=== PATIENT | female | born 1930 | race Caucasian/White ===

== ENCOUNTER 2016-07-22 19:37 | Inpatient (IN) | payer OTHER ==
[~2016-07-22] VITALS: Ht 165.1 cm; Wt 51.7 kg
[~2016-07-22 19:37] MED LIST: NEURONTIN300 M1 PO; ULTRACET TABLE1 EACH PO
--- NOTE | 2016-07-22 20:15 | ED GI/GU/ABDOMINAL COMPLAINT ---
History of Present Illness General Chief Complaint: Abdominal Pain/Flank Pain Stated Complaint: ABD. PAIN X 2DAYS, VOMITING,15LB WEIGHT LOSS X1MTH Source: patient, family, old records Exam Limitations: no limitations Vital Signs & Intake/Output Vital Signs & Intake/Output Vital Signs Date Time Temp Pulse Resp B/P Pulse O2 O2 Flow FiO2 Ox Delivery Rate 07/226 96.5 86 16 136/63 93 Room Air 07/22 2136 98.0 83 16 172/88 96 Room Air 07/22 2033 96 Room Air 07/22 2008 96.5 100 18 156/72 99 Room Air Allergies Coded Allergies: heparin (Intermediate, LEAKED INTO TISSUE AND CAUSED EXTREME PAIN 07/22/16) Per antibiotic order sheet. -- Ruben 12/03/12 clarithromycin (UNKNOWN PER PT DAUGHTER BELIEVES IT WAS EMYCIN - GI UPSET ) erythromycin base (GI UPSET 07/22/16) gabapentin (DIZZY GI UPSET 07/22/16) tramadol (DIZZY, GI UPSET 07/22/16) Reconcile Medications Acetaminophen (Pharbetol) 325 MG TABLET 1-2 TAB PO PRN PAIN (Reported) Acetaminophen With Codeine (Acetaminophen-Cod #3 Tablet) 300 MG-30 MG TABLET 0.5-1 TAB PO BID PRN PAIN (Reported) Apixaban (Eliquis) 2.5 MG TABLET 1 TAB PO BID BLOOD THINNER (Reported) Calcium Carb/Vitamin D3/Vit K1 (Calcium + D Soft Chewable Tab) (Unknown Strength ) TAB.CHEW (Unknown Dose) PO DAILY SUPPLEMENT (Reported) Carvedilol 25 MG TABLET 0.5 TAB PO BID HEART (Reported) Furosemide 20 MG TABLET 1 TAB PO QAM DIURETIC (Reported) Levothyroxine Sodium (Synthroid) 75 MCG TABLET 1 TAB PO EOD THYROID (Reported ) Levothyroxine Sodium (Levoxyl) 75 MCG TABLET 0.5 TAB PO EOD THYROID (Reported ) Lisinopril 2.5 MG TABLET 1 TAB PO DAILY BP (Reported) Magnesium Oxide (Magnesium) 400 MG CAPSULE 1 CAP PO DAILY SUPPLEMENT ( Reported) Rosuvastatin Calcium (Crestor) 20 MG TABLET 1 TAB PO QPM CHOLESTEROL ( Reported) Simethicone (Gas Relief) (Unknown Strength) TAB.CHEW (Unknown Dose) PO PRN GAS (Reported) Triage Nurses Notes Reviewed? yes ? N Is pt currently ? No HPI: Patient presents with a sharp and crampy periumbilical pain that started yesterday and has steadily increased to the point that she can no longer take the pain. The pain starts periumbilically and radiates out to both sides. There is no radiation into her back. Patient states that she has had intermittent pain like this in the past and has been taking omeprazole for it. This pain is worse than it normally is. Patient denies any chest pain. There is no nausea or vomiting. There are no aggravating or mitigating factors. Patient took codeine without relief. Patient denies any shortness of breath. The pain is currently 10 out of 10. Patient states that she has also lost approximately 15 pounds over the past few months unintentionally. Past History Travel History Traveled to [place] past 21 day No Medical History Any Pertinent Medical History? see below for history Cardiovascular: AFIB, hypertension Gastrointestinal: GERD Endocrine: hypothyroidism History of CDIFF: No Tetanus Vaccine: 06/05/15 Surgical History Surgical History: left hip surgery Psychosocial History Who do you live with Patient/Self What is your primary language Hungarian Tobacco Use: Quit >30 days ago ETOH Use: denies use Illicit Drug Use: denies illicit drug use Family History Hx Contributory? No Review of Systems Review of Systems Constitutional: Reports: no symptoms. EENTM: Reports: no symptoms. Respiratory: Reports: no symptoms. Cardiovascular: Reports: no symptoms. GI: Reports: see HPI, abdominal pain. Genitourinary: Reports: no symptoms. Musculoskeletal: Reports: no symptoms. Skin: Reports: no symptoms. Neurological/Psychological: Reports: no symptoms. Hematologic/Endocrine: Reports: no symptoms. Immunologic/Allergic: Reports: no symptoms. All Other Systems: Reviewed and Negative Physical Exam Physical Exam General Appearance: well developed/nourished, alert, awake, anxious, severe distress Head: atraumatic Eyes: Bilateral: PERRL, EOMI. Ears, Nose, Throat, Mouth: hearing grossly normal, DRY MUCOSA Neck: normal inspection, supple, full range of motion Respiratory: normal breath sounds, chest non-tender, no respiratory distress, lungs clear Cardiovascular: normal peripheral pulses, irregularly irregular Gastrointestinal: normal bowel sounds, soft, no organomegaly, tenderness Back: normal inspection, normal range of motion Extremities: normal range of motion Neurologic/Psych: no motor/sensory deficits, awake, alert, oriented x 3, normal mood/affect Skin: intact, normal color, warm/dry Core Measures ACS in differential dx? No Severe Sepsis Present: No Septic Shock Present: No Progress Differential Diagnosis: AAA, AMI, appendicitis, biliary colic, colon cancer, cholecystitis, diverticulitis, gastritis, hepatitis, ischemic bowel, inflamm bowel dis, pancreatitis, SBO, UTI/pyelo Plan of Care: Orders Procedure Date/time Status TROPONIN LEVEL 07/23 0300 Active EKG 07/23 0300 Active TROPONIN LEVEL 07/22 2321 Active EKG 07/22 2321 Active Patient Data 07/22 2312 Active Admit to inpatient 07/22 2307 Active LACTIC ACID 07/22 2301 Active Telemetry/Compensation Expert 07/22 2000 Active URINALYSIS 07/22 2000 Active TROPONIN LEVEL 07/22 2000 Complete LIPASE 07/22 2000 Complete LACTIC ACID 07/22 2000 Complete COMPREHENSIVE METABOLIC PANEL 07/22 2000 Complete CBC WITHOUT DIFFERENTIAL 07/22 2000 Complete AMYLASE 07/22 2000 Complete EKG 07/22 1940 Active Current Medications Sig/Amber Start time Last Medication Dose Stop Time Status Admin Atorvastatin Calcium 20 MG DAILY 07/23 1000 UNVr (Lipitor) Furosemide 20 MG QAM 07/23 1000 UNVr (Lasix) Lisinopril 2.5 MG DAILY 07/23 1000 UNVr (Prinivil) Magnesium Oxide 400 MG DAILY 07/23 1000 UNVr (Mag-Ox) Levothyroxine Sodium 0.0375 MG .[EOD] 07/22 2344 UNVr (Synthroid) Levothyroxine Sodium 0.075 MG .[EOD] 07/22 2344 UNVr (Synthroid) Simethicone 80 MG Q4P PRN 07/22 2344 UNVr (Mylicon) Apixaban 2.5 MG BID 07/22 2343 UNVr (Eliquis) Carvedilol 12.5 MG BID 07/22 2343 UNVr (Coreg) Laboratory Tests 07/22/16 2340: Troponin I Pending 07/22/162339: Lactic Acid Pending 07/22/162023: Anion Gap 11, Estimated GFR 53 L, BUN/Creatinine Ratio 24.0, Glucose 139 H, Lactic Acid 2.0, Calcium 10.1, Total Bilirubin 0.9, AST 27, ALT 27, Alkaline Phosphatase 69, Troponin I 0.14 *H, Total Protein 7.6, Albumin 4.3, Globulin 3.3 , Albumin/Globulin Ratio 1.3, Amylase 40, Lipase 42, CBC w Diff NO MAN DIFF REQ, RBC 4.72, MCV 88.3, MCH 29.8, RDW 13.9, MPV 8.7, Gran % 77.1 H, Lymphocytes % 15.3 L, Monocytes % 7.1, Eosinophils % 0.2, Basophils % 0.3, Absolute Granulocytes 6.9 H, Absolute Lymphocytes 1.4, Absolute Monocytes 0.6, Absolute Eosinophils 0, Absolute Basophils 0, PUBS MCHC 33.8 Diagnostic Imaging: Viewed by Me: CT Scan. Discussed w/RAD: CT Scan. Radiology Impression: PATIENT: BRIGHT GROSS PRESENT AGE: 86 PATIENT ACCOUNT NO: [id number] : 32 LOCATION: [facility] ORDERING PHYSICIAN: CECI SALCIDO MD SERVICE DATE: 07/22/16 EXAM TYPE: CAT - CT ABD & PELVIS W IV CONTRAST EXAMINATION: CT ABDOMEN AND PELVIS WITH CONTRAST CLINICAL INFORMATION: Diffuse pain. 15 pound weight loss COMPARISON: None TECHNIQUE: Multidetector volumetric imaging was performed of the abdomen and pelvis before and after the IV administration of 95 mL of Optiray 320 intravenous contrast. Sagittal and coronal reformatted images were obtained on the technologist's workstation. DLP: 277.52 mGy-cm FINDINGS: LUNG BASES: Large hiatal hernia. 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 LIVER, GALLBLADDER, AND BILIARY TREE: The liver is normal in size, shape, and attenuation. No focal hepatic lesion or biliary ductal dilatation is present. The gallbladder is unremarkable with no evidence of radiopaque gallstones, gallbladder wall thickening, or obvious pericholecystic inflammatory changes. Extra hepatic CBD measures 5 mm. PANCREAS: Pancreas is atrophic. Pancreatic duct is slightly dilated measuring about 3 mm at the pancreatic body. No inflammation of the pancreas. No pancreatic mass. SPLEEN: Unremarkable. ADRENAL GLANDS: Unremarkable. KIDNEYS AND URETERS: The kidneys are normal in size, shape, and attenuation. No hydronephrosis, hydroureter, or calculi seen. No perinephric stranding. BLADDER: Unremarkable. GASTROINTESTINAL TRACT: There is dilatation of the proximal mid small bowel loops. The distal small bowel loops are decompressed. Pattern of a small bowel obstruction. The obstruction is due to a left-sided obturator hernia, sagittal image 49. No inflammation of the bowel wall. No bowel wall thickening. Large bowel is decompressed. Mild diverticulosis of left colon without diverticulitis. Large hiatal hernia. MESENTERY: Small amount of free fluid in the pelvis. No free air. ABDOMINAL WALL: No significant hernia is appreciated. LYMPH NODES: Normal. 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 Atherosclerotic vascular wall calcifications of aorta and iliac vessels and splenic artery. No aneurysm. Calcification at the origin of the celiac axis and SMA PELVIC VISCERA: Unremarkable. 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 There is compression superior endplate of about 50% loss of height of L1, T12 and T11. Gamma nail in the left hip old healed fracture of the right superior pubic ramus and symphysis pubis. IMPRESSION: Left -sided obturator hernia causing small bowel obstruction.. DICTATED BY: GEORGE CUI MD DATE/TIME DICTATED:07/22/162132 [employer] OPERATOR:ARSALAN DATE/TIME TRANSCRIBED:07/22/162132 CONFIDENTIAL, DO NOT COPY WITHOUT APPROPRIATE AUTHORIZATION. <Electronically signed in Other Vendor System> SIGNED BY: GEORGE CUI MD 07/22/162151 Initial ED EKG: AFIB, ST depression Prior EKG: changed Rhythm Strip: atrial fibrillation Comments: Case was discussed with Dr. Cuellar. Patient and daughter have been updated on lab results. Questions have been answered. CAT scan is pending. Departure Departure Disposition: STILL A PATIENT Condition: Guarded Clinical Impression Primary Impression: Elevated troponin Secondary Impressions: Lower abdominal pain, unspecified Referrals: TREVER JOHNSON MD (PCP) Departure Forms: Customer Survey General Discharge Information Admission Note Spoke With: TREVER JOHNSON MD Documentation of Exam: Documentation of any treatments & extenuating circumstances including Concerns Regarding Discharge (functional status, medication knowledge or non-compliance, living conditions, etc.) that warrant an admission rather than observation: [ Nothing by mouth, IV fluids, serial enzymes, cardiology consultation, surgical evaluation]
[2016-07-22 20:33] LABS: ABSOLUTE BASOPHIL COUNT 0 /CUMM (0.0-0.2); ABSOLUTE EOSINOPHIL COUNT 0 /CUMM (0.0-0.7); ABSOLUTE GRANULOCYTE CT 6.9 /CUMM (1.4-6.5); ABSOLUTE LYMPH COUNT 1.4 /CUMM (1.2-3.4); ABSOLUTE MONOCYTE COUNT 0.6 /CUMM (0.10-0.60); BASOPHIL % 0.3 % (0.0-2.0); EOSINOPHIL % 0.2 % (0-5); GRANULOCYTE % 77.1 % (42.2-75.2); HEMATOCRIT 41.7 % (37-47); MEAN CORPUSCULAR HGB 29.8 PG (27.0-31.0); MEAN CORPUSCULAR HGB CONC 33.8 G/DL (33.0-37.0); MEAN CORPUSCULAR VOLUME 88.3 FL (81.0-99.0); MEAN PLATELET VOLUME 8.7 FL (7.4-10.4); PLATELET COUNT 211 /CUMM (130-400); RBC DISTRIBUTION WIDTH 13.9 % (11.5-14.5); RED BLOOD CELL CT 4.72 /CUMM (4.20-5.40)
[2016-07-22] MEDS ORDERED: CRESTOR20 M2 PO (20:38)
[2016-07-22] MEDS ORDERED: CARVEDILOL25 M1 PO (20:38)
[2016-07-22] MEDS ORDERED: FUROSEMIDE20 M1 PO (20:39)
[2016-07-22] MEDS ORDERED: ACETAMINOPHEN-1 EAC3 PO (20:39)
[2016-07-22] MEDS ORDERED: ELIQUIS2.5 M1 PO (20:39)
[2016-07-22] MEDS ORDERED: SYNTHROID75 MCG PO (20:41)
[2016-07-22] MEDS ORDERED: LEVOXYL75 MCG PO (20:42)
[2016-07-22] MEDS ORDERED: LISINOPRIL2.5 M1 PO (20:42)
[2016-07-22] MEDS ORDERED: MAGNESIUM400 M1 PO (20:43)
[2016-07-22] MEDS ORDERED: PHARBETOL325 MG PO (20:43)
[2016-07-22] MEDS ORDERED: CALCIUM + D SO1 EACH PO (20:44)
[2016-07-22] MEDS ORDERED: GAS RELIEF80 M1 PO (20:44)
--- NOTE | 2016-07-22 21:52 | CT SCAN REPORT ---
EXAMINATION: CT ABDOMEN AND PELVIS WITH CONTRAST CLINICAL INFORMATION: Diffuse pain. 15 pound weight loss COMPARISON: None TECHNIQUE: Multidetector volumetric imaging was performed of the abdomen and pelvis before and after the IV administration of 95 mL of Optiray 320 intravenous contrast. Sagittal and coronal reformatted images were obtained on the technologist's workstation. DLP: 277.52 mGy-cm FINDINGS: LUNG BASES: Large hiatal hernia. 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 LIVER, GALLBLADDER, AND BILIARY TREE: The liver is normal in size, shape, and attenuation. No focal hepatic lesion or biliary ductal dilatation is present. The gallbladder is unremarkable with no evidence of radiopaque gallstones, gallbladder wall thickening, or obvious pericholecystic inflammatory changes. Extra hepatic CBD measures 5 mm. PANCREAS: Pancreas is atrophic. Pancreatic duct is slightly dilated measuring about 3 mm at the pancreatic body. No inflammation of the pancreas. No pancreatic mass. SPLEEN: Unremarkable. ADRENAL GLANDS: Unremarkable. KIDNEYS AND URETERS: The kidneys are normal in size, shape, and attenuation. No hydronephrosis, hydroureter, or calculi seen. No perinephric stranding. BLADDER: Unremarkable. GASTROINTESTINAL TRACT: There is dilatation of the proximal mid small bowel loops. The distal small bowel loops are decompressed. Pattern of a small bowel obstruction. The obstruction is due to a left-sided obturator hernia, sagittal image 49. No inflammation of the bowel wall. No bowel wall thickening. Large bowel is decompressed. Mild diverticulosis of left colon without diverticulitis. Large hiatal hernia. MESENTERY: Small amount of free fluid in the pelvis. No free air. ABDOMINAL WALL: No significant hernia is appreciated. LYMPH NODES: Normal. 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 Atherosclerotic vascular wall calcifications of aorta and iliac vessels and splenic artery. No aneurysm. Calcification at the origin of the celiac axis and SMA PELVIC VISCERA: Unremarkable. 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 There is compression superior endplate of about 50% loss of height of L1, T12 and T11. Gamma nail in the left hip old healed fracture of the right superior pubic ramus and symphysis pubis. IMPRESSION: Left-sided obturator hernia causing small bowel obstruction..
--- NOTE | 2016-07-22 23:22 | History & Physical ---
ZEUS DONIS,[facility] 07/22/16 5758: General Information and HPI MD Statement: I have seen and personally examined BRIGHT LLANES and documented this H&P. The patient is a 86 year old F who presented with a patient stated chief complaint of abdominal pain. Source of Information: patient, family, old records Exam Limitations: no limitations History of Present Illness: Ms Llanes is an 86-year-old lady with past medical history of atrial fibrillation and history of multiple previous falls who presented to the emergency department on 07/22/2016 complaining of abdominal pain. Patient states that her abdominal pain was rated 10 out of 10 in severity. Pain began approximately 24 hours ago while she was at home. She states nothing made the pain better or worse. The pain initially was periumbilical and centrally located, it then diffused and radiated across the lower abdominal wall. The patient reports that in addition to the pain she also felt nauseous and had multiple episodes of dry heaving. Patient has reported decrease appetite over the last 24 hours she has been unable to tolerate by mouth intake. Patient also endorses that she has recently lost over 15 pounds unintentionally. She denies any night sweats or lymphadenopathy. She last saw her primary care physician Dr. Johnson last week. She last saw film technician Dr. Husain month ago. Patient denies any fever, chills. She denies any chest pain, shortness of breath, orthopnea, palpitations. Allergies/Medications Allergies: Coded Allergies: heparin (Intermediate, LEAKED INTO TISSUE AND CAUSED EXTREME PAIN 07/22/16) Per antibiotic order sheet. -- Ruben 12/03/12 clarithromycin (UNKNOWN PER PT DAUGHTER BELIEVES IT WAS EMYCIN - GI UPSET ) erythromycin base (GI UPSET 07/22/16) gabapentin (DIZZY GI UPSET 07/22/16) tramadol (DIZZY, GI UPSET 07/22/16) Home Med list Acetaminophen (Pharbetol) 325 MG TABLET 1-2 TAB PO PRN PAIN (Reported) Acetaminophen With Codeine (Acetaminophen-Cod #3 Tablet) 300 MG-30 MG TABLET 0.5-1 TAB PO BID PRN PAIN (Reported) Apixaban (Eliquis) 2.5 MG TABLET 1 TAB PO BID BLOOD THINNER (Reported) Calcium Carb/Vitamin D3/Vit K1 (Calcium + D Soft Chewable Tab) (Unknown Strength ) TAB.CHEW (Unknown Dose) PO DAILY SUPPLEMENT (Reported) Carvedilol 25 MG TABLET 0.5 TAB PO BID HEART (Reported) Furosemide 20 MG TABLET 1 TAB PO QAM DIURETIC (Reported) Levothyroxine Sodium (Levoxyl) 75 MCG TABLET 0.5 TAB PO EOD THYROID (Reported ) Lisinopril 2.5 MG TABLET 1 TAB PO DAILY BP (Reported) Magnesium Oxide (Magnesium) 400 MG CAPSULE 1 CAP PO DAILY SUPPLEMENT ( Reported) Rosuvastatin Calcium (Crestor) 20 MG TABLET 1 TAB PO QPM CHOLESTEROL ( Reported) Simethicone (Gas Relief) (Unknown Strength) TAB.CHEW (Unknown Dose) PO PRN GAS (Reported) Compliance With Home Meds: GOOD Past History Travel History Traveled to [place] past 21 day No Medical History Neurological: NONE EENT: NONE Cardiovascular: AFIB, hypertension, RCW PACEMAKER Respiratory: NONE Gastrointestinal: GERD Hepatic: NONE Renal: NONE Musculoskeletal: NONE Psychiatric: NONE Endocrine: hypothyroidism Blood Disorders: NONE Cancer(s): NONE History of CDIFF: No Tetanus Vaccine: 06/05/15 Surgical History Surgical History: left hip surgery Past Family/Social History Psychosocial History Where do you live? Home Who Do You Live With? child Services at Home: None Primary Language: Syrian ETOH Use: denies use Illicit Drug Use: denies illicit drug use Functional Ability ADLs Independent: dressing, eating, toileting, bathing. Ambulation: cane IADLs Independent: shopping, housework, finances, food prep, telephone, transportation , medication admin. Review of Systems Review of Systems Constitutional: Denies: chills, diaphoresis, fever, malaise. EENTM: Denies: blurred vision, double vision, visual changes. Cardiovascular: Denies: chest pain, edema, orthopena, palpitations, peripheral edema. Respiratory: Denies: cough, hemoptysis, orthopnea, short of breath. GI: Reports: abdominal pain, nausea, vomiting. Denies: distention, bowel incontinence. Genitourinary: Denies: discharge, dysuria, frequency, hematuria. Musculoskeletal: Denies: back pain, gout, joint pain, joint swelling. Exam & Diagnostic Data Last 24 Hrs of Vital Signs/I&O Vital Signs Date Time Temp Pulse Resp B/P Pulse O2 O2 Flow FiO2 Ox Delivery Rate 07/22 2325 96.5 86 16 136/63 93 Room Air 07/22 2136 98.0 83 16 172/88 96 Room Air 07/22 2033 96 Room Air 07/22 2008 96.5 100 18 156/72 99 Room Air Physical Exam General Appearance Alert, Oriented X3, Cooperative, No Acute Distress HEENT PERRLA, Mucous membranes Dry Lymphatic Cervical nl Cardiovascular Normal S1, Normal S2, Irregular rate and Rhythm Lungs Clear to Auscultation Abdomen Normal Bowel Sounds, Soft, No Tenderness Neurological Strength at 5/5 X4 Ext Extremities Generalized edema Last 24 Hrs of Labs/Pavan: Laboratory Tests 07/22/16 2340: Troponin I Pending 07/22/162339: Lactic Acid 1.2 07/22/162023: Anion Gap 11, Estimated GFR 53 L, BUN/Creatinine Ratio 24.0, Glucose 139 H, Lactic Acid 2.0, Calcium 10.1, Total Bilirubin 0.9, AST 27, ALT 27, Alkaline Phosphatase 69, Troponin I 0.14 *H, Total Protein 7.6, Albumin 4.3, Globulin 3.3 , Albumin/Globulin Ratio 1.3, Amylase 40, Lipase 42, CBC w Diff NO MAN DIFF REQ, RBC 4.72, MCV 88.3, MCH 29.8, RDW 13.9, MPV 8.7, Gran % 77.1 H, Lymphocytes % 15.3 L, Monocytes % 7.1, Eosinophils % 0.2, Basophils % 0.3, Absolute Granulocytes 6.9 H, Absolute Lymphocytes 1.4, Absolute Monocytes 0.6, Absolute Eosinophils 0, Absolute Basophils 0, PUBS MCHC 33.8 Diagnostic Data EKG Results Rate 101 QTC 535 A. Fibrilation. Other Results IMPRESSION: Left-sided obturator hernia causing small bowel obstruction.. Assessment/Plan Assessment: This is a 86-year-old lady who presented to the emergency department worsening abdominal pain following a resolution to symptoms she subsequently had an elevations in troponins. Likely due to demand ischemia. #Positive Troponins: 0.14 Elevation in troponin is likely due to demand ischemia. We'll continue to monitor trend serial troponins EKG to ensure can rule out ACS in the patient. Trending troponin: First troponin 0.14 second troponin is 0.16 Continue carvedilol #Abdominal pain CT scan showed evidence of left-sided hernia causing small bowel obstruction. Surgery service who saw the patient recommends no emergent intervention. We will hold Eliquis for now in anticipation for potential surgery in am. Patient is clear from surgery perspective please begin Eliquis in a.m. Keep patient nothing by mouth for now until further recommendations from surgery regarding questionable procedure. #History of CHF and [place] Cardiomyopathy most recent EF 45-50%. Continue Lasix. Monitor ins and outs and daily weights. #History of hyperlipidemia Continue atorvastatin 40 mg po daily #History of hypertension Continue antihypertensives lisinopril 2.5 mg Lasix 20 mg and carvedilol 12.5 mg. #History of hypothyroidism Continue levothyroxine 0.0375 every 48. #Code: Full As Ranked By This Provider Problem List: 1. Atrial fibrillation 2. Elevated troponin 3. HYHPERTENSION 4. Hypothyroidism 5. Congestive heart failure 6. Abdominal pain Core Measures/Miscellaneous Acute Coronary Syndrome ACS Diagnosis: No Cerebrovascular Accident CVA/TIA Diagnosis: No Congestive Heart Failure CHF Diagnosis: No Venous Thromboembolism VTE Risk Factors: Age > 40 VTE Prophylaxis Ordered Inpt: Pharm- Lovenox No Mech VTE prophylaxis d/t: No contraindications No VTE Pharm Prophylaxis d/t: No contraindications VTE Diagnosis: No VTE Type: NONE VTE Confirmed by (Test): NONE Severe Sepsis Severe Sepsis Present: No Septic Shock Septic Shock Present: No Miscellaneous Documentation Attending Case Discussed With: Dr Johnson Primary Care Physician: TREVER JOHNSON MD Patient sees these Specialists Dr Husain Level of Patient Care: Telemetry ESTELITA ESPINO 07/22/16 0017: Resident Review Statement Resident Statement: examined this patient, discussed with leadership program intern, agreed with leadership program intern, discussed with family, reviewed EMR data (avail), discussed with nursing , discussed with case mgmt, reviewed images, amended to note Other Findings: 65-year-old woman with past medical history of 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 Patient reports for the past month she has been having intermittent abdominal pain, associated with feeling nauseous and has an dry hives, patient denies any blood in his stool, mentions recent unintentional weight loss, denies change in bowel habits/and consistency. CT scan in the emergency room was obtained and showed left-sided obturator hernia causing small bowel obstruction. Patient was started on IV fluid and morphine for pain and patient was seen by surgical team. After initial treatment obstruction seems to be resolved however initial lab work highlighted an elevated troponin of 0.14 in addition to abnormal EKG changes. Patient denies any chest pain, palpitation, shortness of breath. She lives with her 3 kids, able to take care of herself and manage her money do grocery shopping and cooking and personal hygiene. Ambulates using a walker had to episode of fall for the past year. Currently nonsmoker denies EtOH and illicit drugs. Review of system: Reports resolved abdominal pain and denies any chest pain and palpitation; physical exam: Head and neck: Mucous membrane: dry, no JVD; CV: Pacemaker and anterior chest wall, S1-S2 no murmur; Lungs: clear; abdomen: Mild tenderness left lower quadrant no guarding no rebound; extremities trace symmetric pedal edema. Pertinent data This is of troponin 0.14 second set 0.16 EKG: Inversion of the T waves in leads II,III,aVF and preordial leads V4-V6. T wave inversion existed in prior studies but seems to be more prominent in the current EKG #1NSTEMI: Patient remained asymptomatic. This slight increase of troponin could be in the setting of cardiomyopathy, and demand ischemia considering the fact that patient has been tachycardic due to severe abdominal pain. ACS is a remote possibility which needs to be ruled out. * Admit the patient to telemetry for continuous heart monitoring * Trending troponin: First troponin 0.14 second troponin is 0.16 * Continue carvedilol * no plan for IV heparin- ED physican discussed the mater with Dr Ami DONIS * Continue atorvastatin 40 mg po daily #2 history of heart failure with preserved ejection fraction secondary to cardiomyopathy: Stable patient is not in decompensation of her heart failure * I/Os * Heart failure diet * Continue lisinopril and Lasix #3 hernia and reversible, nonischemic small bowel obstruction * Considering the risk of sliding hernia strangulation and possibility of urgent surgery eliquis was held per surgical teams' request- coordinate with surgery before restarting this medication * surgical assessment tomorrow possible candidate for elective hernia repair as an outpatient * NPO with permission to drink water and medication #4 hypertension * Continue her lisinopril and Lasix and carvedilol #5 Hx of hypothyroidism * continue her Synthyroid Full code Levonox 30 Sc daily Mild-mod pain pathway [facility] 0952: Attending MD Review Statement Attending Statement Attending MD Statement: examined this patient, discuss w/resident/PA/NOTCH MACHINE OPERATOR, agreed w/resident/PA/NOTCH MACHINE OPERATOR, reviewed EMR data (avail)
--- NOTE | 2016-07-22 23:25 | Cons- General Surgery ---
MISHEL HERNANDEZ 07/22/16 2311: General Information and HPI Consulting Request Date of Consult: 07/22/16 Requested By: Dr Lee Reason for Consult: abdominal pain, obturator hernia noted on CT scan Source of Information: patient, family Exam Limitations: no limitations History of Present Illness: Pt presents with low abdominal/pelvic pain since last night. Associated with nausea, no vomiting - some dry heaves. +BM yesterday, none today. Pt states that in retrospect she has similar intermittent pain over the past few months which has never been this bad and always resolves spontaneously. She was recently at her PCP this past week and it was noted that she lost 14 pounds since april. She claims to have no appetite associated with the pain - her daughter also states that she suffers from pain of osteoporosis and never likes to eat when she is in pain so that is also part of the anorexia. Currently in the ED, she was given one dose of IV morphine 4 mg and was hydrated with a liter of normal saline. A CT scan was performed which revealed an sbo from an obturator hernia. The patient is resting comfortably at the time of this exam and states that she currently feels good and nothing at all like she was experiencing upon arrival. Of note, she has a history of a fib for which she takes eliquis - including today. She also has a ppm. Allergies/Medications Allergies: Coded Allergies: heparin (Intermediate, LEAKED INTO TISSUE AND CAUSED EXTREME PAIN 07/22/16) Per antibiotic order sheet. -- Ruben 12/03/12 clarithromycin (UNKNOWN PER PT DAUGHTER BELIEVES IT WAS EMYCIN - GI UPSET ) erythromycin base (GI UPSET 07/22/16) gabapentin (DIZZY GI UPSET 07/22/16) tramadol (DIZZY, GI UPSET 07/22/16) Past History Medical History Neurological: NONE EENT: NONE Cardiovascular: AFIB, hypertension, RCW PACEMAKER Respiratory: NONE Gastrointestinal: GERD Hepatic: NONE Renal: NONE Musculoskeletal: NONE Psychiatric: NONE Endocrine: hypothyroidism Blood Disorders: NONE Cancer(s): NONE Surgical History Pertinent Surgical History: left hip surgery Psychosocial History Where Do You Live? Home ETOH Use: denies use Illicit Drug Use: denies illicit drug use Functional Ability ADLs Independent: dressing, eating, toileting, bathing. Review of Systems Review of Systems: At current time her 10 point review of symptoms is negative Exam & Diagnostic Data Vital Signs and I&O Vital Signs Date Time Temp Pulse Resp B/P Pulse O2 O2 Flow FiO2 Ox Delivery Rate 07/22 2136 98.0 83 16 172/88 96 Room Air 07/22 2033 96 Room Air 07/22 2008 96.5 100 18 156/72 99 Room Air Physical Exam: afib, 80-100 bp high at 172/88 afebrile General: awake, alert, smiling and comfortable Chest: clear anteriorly bilaterally, irr/irr Abd: soft, nondistended, good bs, nontender even to deep palpation throughout all 4 quadrants Ext: warm, no edema, nontender to LLE including deep palpation to left medial thigh, no masses Last 24 Hours of Labs: Laboratory Tests 07/22 2023 Chemistry Sodium (137 - 145 mmol/L) 137 Potassium (3.5 - 5.1 mmol/L) 5.1 Chloride (98 - 107 mmol/L) 96 L Carbon Dioxide (22 - 30 mmol/L) 30 Anion Gap (5 - 16) 11 BUN (7 - 17 mg/dL) 24 H Creatinine (0.5 - 1.0 mg/dL) 1.0 Estimated GFR (>60 ml/min) 53 L BUN/Creatinine Ratio (7 - 25 %) 24.0 Glucose (65 - 99 mg/dL) 139 H Lactic Acid (0.7 - 2.1 mmol/L) 2.0 Calcium (8.4 - 10.2 mg/dL) 10.1 Total Bilirubin (0.2 - 1.3 mg/dL) 0.9 AST (14 - 36 U/L) 27 ALT (9 - 52 U/L) 27 Alkaline Phosphatase (<127 U/L) 69 Troponin I (< 0.11 ng/ml) 0.14 *H Total Protein (6.3 - 8.2 g/dL) 7.6 Albumin (3.5 - 5.0 g/dL) 4.3 Globulin (1.9 - 4.2 gm/dL) 3.3 Albumin/Globulin Ratio (1.1 - 2.2 %) 1.3 Amylase (30 - 110 U/L) 40 Lipase (23 - 300 U/L) 42 Hematology CBC w Diff NO MAN DIFF REQ WBC (4.8 - 10.8 /CUMM) 9.0 RBC (4.20 - 5.40 /CUMM) 4.72 Hgb (12.0 - 16.0 G/DL) 14.1 Hct (37 - 47 %) 41.7 MCV (81.0 - 99.0 FL) 88.3 MCH (27.0 - 31.0 PG) 29.8 RDW (11.5 - 14.5 %) 13.9 Plt Count (130 - 400 /CUMM) 211 MPV (7.4 - 10.4 FL) 8.7 Gran % (42.2 - 75.2 %) 77.1 H Lymphocytes % (20.5 - 51.1 %) 15.3 L Monocytes % (1.7 - 9.3 %) 7.1 Eosinophils % (0 - 5 %) 0.2 Basophils % (0.0 - 2.0 %) 0.3 Absolute Granulocytes (1.4 - 6.5 /CUMM) 6.9 H Absolute Lymphocytes (1.2 - 3.4 /CUMM) 1.4 Absolute Monocytes (0.10 - 0.60 /CUMM) 0.6 Absolute Eosinophils (0.0 - 0.7 /CUMM) 0 Absolute Basophils (0.0 - 0.2 /CUMM) 0 PUBS MCHC (33.0 - 37.0 G/DL) 33.8 Imaging Results: Abd/pelvis CT GASTROINTESTINAL TRACT: There is dilatation of the proximal mid small bowel loops. The distal small bowel loops are decompressed. Pattern of a small bowel obstruction. The obstruction is due to a left-sided obturator hernia, sagittal image 49. No inflammation of the bowel wall. No bowel wall thickening. Large bowel is decompressed. Mild diverticulosis of left colon without diverticulitis. Large hiatal hernia. MESENTERY: Small amount of free fluid in the pelvis. No free air. ABDOMINAL WALL: No significant hernia is appreciated. PELVIC VISCERA: Unremarkable. IMPRESSION: Left-sided obturator hernia causing small bowel obstruction.. Assessment/Plan Assessment/Plan 86 yo female with multiple medical comorbidities with obturator hernia noted on CT, now asymptomatic, troponin 0.14 with history of dilated cardiomyopathy and a fib on eliquis Hernia has likely spontaneously resolved as she is asymptomatic and pain cannot be illicited, no palpable masses Discussed with Dr Adams, would recommend medical/heart workup for likely need for obturator hernia surgery which can be done electively. Pt will need to be off eliquis Dr Adams to come by tomorrow am to talk to patient and medical team If it appears she will be cleared for surgery then would recommend keeping her npo at this time - no need for ngt IVF Hold eliqumerry monroeight - possibly restart in am after recommendations Copies To: KATHERINE ADAMS DO Consult Acknowledgment - Thank you for your consult request. KATHERINE ADAMS DO 07/23/16 6598: General Information and HPI Allergies/Medications Home Med List: Acetaminophen (Pharbetol) 325 MG TABLET 1-2 TAB PO PRN PAIN (Reported) Acetaminophen With Codeine (Acetaminophen-Cod #3 Tablet) 300 MG-30 MG TABLET 0.5-1 TAB PO BID PRN PAIN (Reported) Apixaban (Eliquis) 2.5 MG TABLET 1 TAB PO BID BLOOD THINNER (Reported) Calcium Carb/Vitamin D3/Vit K1 (Calcium + D Soft Chewable Tab) (Unknown Strength ) TAB.CHEW (Unknown Dose) PO DAILY SUPPLEMENT (Reported) Carvedilol 25 MG TABLET 0.5 TAB PO BID HEART (Reported) Furosemide 20 MG TABLET 1 TAB PO QAM DIURETIC (Reported) Levothyroxine Sodium (Levoxyl) 75 MCG TABLET 0.5 TAB PO EOD THYROID (Reported ) Lisinopril 2.5 MG TABLET 1 TAB PO DAILY BP (Reported) Magnesium Oxide (Magnesium) 400 MG CAPSULE 1 CAP PO DAILY SUPPLEMENT ( Reported) Rosuvastatin Calcium (Crestor) 20 MG TABLET 1 TAB PO QPM CHOLESTEROL ( Reported) Simethicone (Gas Relief) (Unknown Strength) TAB.CHEW (Unknown Dose) PO PRN GAS (Reported) Assessment/Plan Consult Acknowledgment - Thank you for your consult request. Attending MD Review Statement Attending Statement Attending MD Statement: examined this patient, discuss w/resident/PA/TOP CAGER, agreed w/resident/PA/TOP CAGER, discussed with family, reviewed EMR data (avail), reviewed images Attending Assessment/Plan: Abdominal pain on and off for months, pain got wrose with N/V >24 hrs prior presentation to ED. [place] a lot better in ED after small dose of morphine. AVSS. Labs ok. CT Abd-pelvis - obturator hernia resulting in an SBO, no sign of bowel compromise. Still uncomfortable today, but clinically stable, Pain medication helping, nausea, no emesis. Confirmed with daughter that she did take Eliquis last night just prior to presentation to the ED. Given patient's clinical stbility, will wait 24-36 to clear Eliquis. I did explain to the patient and daughter that there may be a risk for bowel ischemia and she may need bowel resection. If patient's clinical status worsens will need an emergent operation. Will plan for a Laparoscopic possible open left obturator hernia repair with possible bowel resection tomorrow.
[2016-07-23 01:40] VITALS: BP 104/80
--- NOTE | 2016-07-23 07:07 | PN- Student ---
VIKA REED 07/23/16 0652: Subjective Subjective: Pt is 86 year old female on day 2 of admission for abdominal pain. Patient states she continues to have diffuse lower abdominal pain. She is unable to describe the type of pain but states it is better with pain medicine. She expresses concern for weight loss and not being able to eat. She states she did not have nausea until food was withheld from her, and that food makes it better. She reports lack of appetite, otherwise denies c/p, sob, vomitting, headache, or diarrhea. She reports last bm was 07/22/16 and has not passed any flatus today. Objective Results Results: Vitals BP: 104/80 Pulse: 95 (pacemaker) Resp: 20 Temp: 98.5F Laboratory Tests 07/23/16 0300: Troponin I Cancelled 07/22/16 2340: Troponin I 0.16 *H 07/22/160: Lactic Acid 1.2 07/22/162023: Anion Gap 11, Estimated GFR 53 L, BUN/Creatinine Ratio 24.0, Glucose 139 H, Lactic Acid 2.0, Calcium 10.1, Total Bilirubin 0.9, AST 27, ALT 27, Alkaline Phosphatase 69, Troponin I 0.14 *H, Total Protein 7.6, Albumin 4.3, Globulin 3.3 , Albumin/Globulin Ratio 1.3, Amylase 40, Lipase 42, CBC w Diff NO MAN DIFF REQ, RBC 4.72, MCV 88.3, MCH 29.8, RDW 13.9, MPV 8.7, Gran % 77.1 H, Lymphocytes % 15.3 L, Monocytes % 7.1, Eosinophils % 0.2, Basophils % 0.3, Absolute Granulocytes 6.9 H, Absolute Lymphocytes 1.4, Absolute Monocytes 0.6, Absolute Eosinophils 0, Absolute Basophils 0, PUBS MCHC 33.8 Physical Exam: General: patinet restless but otherwise cooperative. CAOx3 Head: NCAT Eyes: PERRL, EOMI Neck: Supple, no tracheal deviation, no lympadenopathy Lungs: CTAB, no rhonchi, wheeze or rales Heart: Distant heart sounds, paced. Abdomen: Hyperactive bowel sounds in all quadrants. No guarding or rebound tenderness. Non-reproducible focal tenderness to LLQ. No HSM. Neg CVA. No palpable bulges/masses in inguinal, femoral or medial aspect of lower extremities. Extremeties: FROM, negative edema. Non-tender to palpation of bilateral thighs. Neuro: CN II-XII grossly intact. Assessment/Plan Assessment: Pt is a 86 year old female who presents to the hospital for abdominal pain consistent with sbo with possible self reduced obturator hernia. Plan: 1. abdominal pain: -likely sbo with self reduced obturator hernia -continue NPO for bowel rest -continue prn pain medication 2. troponin elevation: -likely demand ischmeia -continue trending -continue carvediolol 3. hypertension: -continue home meds as prescribed 4. HFpEF: -continue home meds as prescribed 5. hyperlipidemia: -continue home meds as prescribed DVT prophylaxis: Patient ecouraged ambulation and continued on enoxaprin. Antibiotic thearpy: none, not indicated at this time. Msaon: not in place, not indicated at this time. LIZETTE OLIVAS 07/23/16 0807: Addendum Addendum I have seen and examined patient and agree with above. Patient had return of abdominal pain/symptoms last night and continues to be in pain this a.m. Reports nausea. No flatus in past couple of days. Last BM was friday. - continue NPO - IVF - f/u a.m. labs, monitor lytes - pain control - hold eliquis - f/u cards - Dr. Barba to see patient this a.m., will f/u plan
[2016-07-23 08:11] VITALS: BP 132/82
--- NOTE | 2016-07-23 09:49 | Admission Certification ---
Admission Certification Certification Statement - As attending physician, I certify that at the time of - admission, based on clinical presentation, severity of - symptoms, need for further diagnostic testing and - therapeutic interventions, and risk of adverse outcomes - without in-hospital treatment, in my clinical assessment, - this patient requires an acute hospital stay for a minimum - of two nights or longer. I have also considered psychsocial - factors such as support system, advanced age, financial - issues, cognitive issues, and failed out-patient treatments, - past re-admission history, safety of patient, and lack of - compliance as applicable. Specific rationale supporting this admission is: NSTEMI, obturator hernia
--- NOTE | 2016-07-23 09:52 | PN- Att Addend ---
Attending Addendum Attending Brief Note Patient complains of abdominal discomfort with associated nausea General Appearance: Alert, No Acute Distress Skin: Grossly normal HEENT: PEERLA Neck: Supple, No JVD Cardiovascular: Regular Rate, Normal S1, Normal S2, No Murmurs Lungs: Clear to Auscultation, Normal Air Movement Abdomen: Normal Bowel Sounds, Soft, No Tenderness Neurological: Normal Speech, Strength at 5/5 X4 Ext, Cranial Nerves 3-12 NL, Reflexes 2+ Extremities: No Clubbing, No Cyanosis, No Edema Vascular: Normal Pulses Assessment 86-year-old with history of atrial fibrillation on Eliquis and presenting with complaining of abdominal pain. CAT scan suggested obturator hernia with small bowel obstruction. Patient is currently nothing by mouth for possible surgical intervention. We'll get a cardiology clearance and also echocardiogram. Plan Hold Eliquis in anticipation of surgery Nothing by mouth and IV hydration Cardiology clearance IV morphine as needed for pain May continue other home meds Current Medications Sig/Amber Start time Last Medication Dose Route Stop Time Status Admin Acetaminophen 650 MG Q6P PRN 07/23 0015 AC PO Acetaminophen 1,000 MG Q6P PRN 07/23 0015 AC IV Apixaban 2.5 MG BID 07/22 2344 DC PO Atorvastatin Calcium 20 MG DAILY 07/23 1000 DC PO Atorvastatin Calcium 40 MG DAILY 07/23 1000 AC PO Carvedilol 12.5 MG BID 07/22 2344 AC PO Dextrose/Sodium 1,000 ML Q20H 07/23 0015 AC 07/23 Chloride IV 0257 Enoxaparin Sodium 30 MG DAILY 07/23 1000 AC 07/23 SC 0900 Furosemide 20 MG QAM 07/23 1000 AC PO Levothyroxine Sodium 0.0375 MG Q48@0700 07/24 0700 AC PO Levothyroxine Sodium 0.075 MG Q48 07/23 1000 DC PO Levothyroxine Sodium 0.075 MG Q48@0700 07/23 0700 AC 07/23 PO 0655 Lisinopril 2.5 MG DAILY 07/23 1000 AC PO Magnesium Oxide 400 MG DAILY 07/23 1000 AC PO Morphine Sulfate 2 MG Q6-PRN PRN 07/23 0015 AC 07/23 IV 0851 Morphine Sulfate 0 .STK-MED ONE 07/22 2020 DC .ROUTE Morphine Sulfate 4 MG ONCE ONE 07/22 2014 DC 07/22 IV 07/22 Ondansetron HCl 0 .STK-MED ONE 07/22 2019 DC .ROUTE Ondansetron HCl 4 MG ONCE ONE 07/22 2014 DC 07/22 IV 07/22 Simethicone 80 MG Q4P PRN 07/22 2345 AC PO Sodium Chloride 1,000 ML BOLUS ONE 07/22 2014 DC 07/22 IV 07/22 Laboratory Tests 07/23 07/23 07/22 07/22 0645 0300 2340 2340 Chemistry Lactic Acid (0.7 - 2.1 mmol/L) 1.2 Troponin I (< 0.11 ng/ml) 0.15 *H Cancelled 0.16 *H 07/22 2023 Chemistry Sodium (137 - 145 mmol/L) 137 Potassium (3.5 - 5.1 mmol/L) 5.1 Chloride (98 - 107 mmol/L) 96 L Carbon Dioxide (22 - 30 mmol/L) 30 Anion Gap (5 - 16) 11 BUN (7 - 17 mg/dL) 24 H Creatinine (0.5 - 1.0 mg/dL) 1.0 Estimated GFR (>60 ml/min) 53 L BUN/Creatinine Ratio (7 - 25 %) 24.0 Glucose (65 - 99 mg/dL) 139 H Lactic Acid (0.7 - 2.1 mmol/L) 2.0 Calcium (8.4 - 10.2 mg/dL) 10.1 Total Bilirubin (0.2 - 1.3 mg/dL) 0.9 AST (14 - 36 U/L) 27 ALT (9 - 52 U/L) 27 Alkaline Phosphatase (<127 U/L) 69 Troponin I (< 0.11 ng/ml) 0.14 *H Total Protein (6.3 - 8.2 g/dL) 7.6 Albumin (3.5 - 5.0 g/dL) 4.3 Globulin (1.9 - 4.2 gm/dL) 3.3 Albumin/Globulin Ratio (1.1 - 2.2 %) 1.3 Amylase (30 - 110 U/L) 40 Lipase (23 - 300 U/L) 42 Hematology CBC w Diff NO MAN DIFF REQ WBC (4.8 - 10.8 /CUMM) 9.0 RBC (4.20 - 5.40 /CUMM) 4.72 Hgb (12.0 - 16.0 G/DL) 14.1 Hct (37 - 47 %) 41.7 MCV (81.0 - 99.0 FL) 88.3 MCH (27.0 - 31.0 PG) 29.8 RDW (11.5 - 14.5 %) 13.9 Plt Count (130 - 400 /CUMM) 211 MPV (7.4 - 10.4 FL) 8.7 Gran % (42.2 - 75.2 %) 77.1 H Lymphocytes % (20.5 - 51.1 %) 15.3 L Monocytes % (1.7 - 9.3 %) 7.1 Eosinophils % (0 - 5 %) 0.2 Basophils % (0.0 - 2.0 %) 0.3 Absolute Granulocytes (1.4 - 6.5 /CUMM) 6.9 H Absolute Lymphocytes (1.2 - 3.4 /CUMM) 1.4 Absolute Monocytes (0.10 - 0.60 /CUMM) 0.6 Absolute Eosinophils (0.0 - 0.7 /CUMM) 0 Absolute Basophils (0.0 - 0.2 /CUMM) 0 PUBS MCHC (33.0 - 37.0 G/DL) 33.8 Vital Signs Date Time Temp Pulse Resp B/P Pulse O2 O2 Flow FiO2 Ox Delivery Rate 07/23 0811 98.2 92 20 132/82 95 Room Air 07/23 0800 Room Air 07/23 0334 98.5 95 20 104/80 07/23 0140 98.5 95 20 104/80 95 Room Air 07/226 96.5 86 16 136/63 93 Room Air 07/227 98.0 83 16 172/88 96 Room Air 07/224 96 Room Air 07/22 2008 96.5 100 18 156/72 99 Room Air
--- NOTE | 2016-07-23 09:54 | Cons- Cardiology ---
General Information and HPI Consulting Request Date of Consult: 07/23/16 Requested By: TREVER JOHNSON MD Reason for Consult: Atrial fibrillation surgical clearance Source of Information: patient, old records Exam Limitations: no limitations History of Present Illness: The patient is an 86-year-old female with a history of persistent atrial fibrillation on Eliquis, Takutsubo cardiomyopathy resolved, hypertension, sinus syndrome status post pacemaker, mitral regurgitation and mild aortic stenosis, who now presents with abdominal pain. Patient states that she has had intermittent episodes of abdominal pain with weight loss. She states that she has lost her appetite over the past 24 hours. She complains of nausea with minimal vomiting. She has not moved her bowels in the past few days. She states that the pain became more severe and therefore she presented to the emergency room for evaluation. From the cardiac standpoint she denies chest pain shortness of breath or palpitations. She states that she last took her Eliquis at least 36 hours ago. Her most recent echocardiogram was performed December 2014 demonstrated ejection fraction of 40-50% stomach heart failure mitral regurgitation and mild aortic stenosis with moderate to severe tricuspid regurgitation. Her most recent pacemaker check was in March demonstrating normal device function. She underwent a cardiac catheterization 2010 demonstrating normal coronary arteries. Allergies/Medications Allergies: Coded Allergies: heparin (Intermediate, LEAKED INTO TISSUE AND CAUSED EXTREME PAIN 07/22/16) Per antibiotic order sheet. -- Ruben 12/03/12 clarithromycin (UNKNOWN PER PT DAUGHTER BELIEVES IT WAS EMYCIN - GI UPSET ) erythromycin base (GI UPSET 07/22/16) gabapentin (DIZZY GI UPSET 07/22/16) tramadol (DIZZY, GI UPSET 07/22/16) Home Med List: Acetaminophen (Pharbetol) 325 MG TABLET 1-2 TAB PO PRN PAIN (Reported) Acetaminophen With Codeine (Acetaminophen-Cod #3 Tablet) 300 MG-30 MG TABLET 0.5-1 TAB PO BID PRN PAIN (Reported) Apixaban (Eliquis) 2.5 MG TABLET 1 TAB PO BID BLOOD THINNER (Reported) Calcium Carb/Vitamin D3/Vit K1 (Calcium + D Soft Chewable Tab) (Unknown Strength ) TAB.CHEW (Unknown Dose) PO DAILY SUPPLEMENT (Reported) Carvedilol 25 MG TABLET 0.5 TAB PO BID HEART (Reported) Furosemide 20 MG TABLET 1 TAB PO QAM DIURETIC (Reported) Levothyroxine Sodium (Levoxyl) 75 MCG TABLET 0.5 TAB PO EOD THYROID (Reported ) Lisinopril 2.5 MG TABLET 1 TAB PO DAILY BP (Reported) Magnesium Oxide (Magnesium) 400 MG CAPSULE 1 CAP PO DAILY SUPPLEMENT ( Reported) Rosuvastatin Calcium (Crestor) 20 MG TABLET 1 TAB PO QPM CHOLESTEROL ( Reported) Simethicone (Gas Relief) (Unknown Strength) TAB.CHEW (Unknown Dose) PO PRN GAS (Reported) Current Medications: Current Medications Sig/Amber Start time Last Medication Dose Route Stop Time Status Admin Acetaminophen 650 MG Q6P PRN 07/23 0015 AC PO Acetaminophen 1,000 MG Q6P PRN 07/23 0015 AC IV Apixaban 2.5 MG BID 07/22 2344 DC PO Atorvastatin Calcium 20 MG DAILY 07/23 1000 DC PO Atorvastatin Calcium 40 MG DAILY 07/23 1000 AC PO Carvedilol 12.5 MG BID 07/22 2344 AC PO Dextrose/Sodium 1,000 ML Q20H 07/23 0015 AC 07/23 Chloride IV 0257 Enoxaparin Sodium 30 MG DAILY 07/23 1000 AC 07/23 SC 0900 Furosemide 20 MG QAM 07/23 1000 AC PO Levothyroxine Sodium 0.0375 MG Q48@0700 07/24 0700 AC PO Levothyroxine Sodium 0.075 MG Q48 07/23 1000 DC PO Levothyroxine Sodium 0.075 MG Q48@0700 07/23 0700 AC 07/23 PO 0655 Lisinopril 2.5 MG DAILY 07/23 1000 AC PO Magnesium Oxide 400 MG DAILY 07/23 1000 AC PO Morphine Sulfate 2 MG Q6-PRN PRN 07/23 0015 AC 07/23 IV 0851 Morphine Sulfate 0 .STK-MED ONE 07/22 2020 DC .ROUTE Morphine Sulfate 4 MG ONCE ONE 07/22 2014 DC 07/22 IV 07/22 Ondansetron HCl 0 .STK-MED ONE 07/22 2019 DC .ROUTE Ondansetron HCl 4 MG ONCE ONE 07/22 2014 DC 07/22 IV 07/22 Simethicone 80 MG Q4P PRN 07/22 2345 AC PO Sodium Chloride 1,000 ML BOLUS ONE 07/22 2014 DC 07/22 IV 07/22 Review of Systems Review of Systems: Eyes no blurred or double vision Ears no deafness or ringing Nose and throat no recurrent sinusitis Lungs per history of present illness Heart per history of present illness Abdomen as per history of present illness Musculoskeletal occasional muscle and joint pains Psych no anxiety or depression Neuro without recurrent headache or seizures Endocrine no heat or cold intolerance Past History Travel History Traveled to [place] past 21 day No Medical History Blood Transfusion Hx: No Neurological: NONE EENT: NONE Cardiovascular: AFIB, hypertension, RCW PACEMAKER Respiratory: NONE Gastrointestinal: GERD Hepatic: NONE Renal: NONE Musculoskeletal: NONE Psychiatric: NONE Endocrine: hypothyroidism Blood Disorders: NONE Cancer(s): NONE Surgical History Surgical History: left hip surgery Psychosocial History Where Do You Live? Home Who Do You Live With? child Services at Home: None Primary Language: Citizen Of [place] Smoking Status: Never Smoked ETOH Use: denies use Illicit Drug Use: denies illicit drug use Functional Ability ADLs Independent: dressing, eating, toileting, bathing. Ambulation: cane IADLs Independent: shopping, housework, finances, food prep, telephone, transportation , medication admin. Exam & Diagnostic Data Vital Signs and I&O Vital Signs Date Time Temp Pulse Resp B/P Pulse O2 O2 Flow FiO2 Ox Delivery Rate 07/23 810 98.2 92 20 132/82 95 Room Air 07/23 0800 Room Air 07/23 0334 98.5 95 20 104/80 07/23 0140 98.5 95 20 104/80 95 Room Air 07/22 2325 96.5 86 16 136/63 93 Room Air 07/22 2136 98.0 83 16 172/88 96 Room Air 07/22 2033 96 Room Air 07/22 2008 96.5 100 18 156/72 99 Room Air Intake & Output 07/23 1600 07/23 0800 07/23 0000 07/22 1600 07/22 0807/22 0000 Intake Total 0 Output Total 0 Balance 0 Intake, Oral 0 Output, Urine 0 Patient 111 lb 140 lb Weight Physical Exam: Patient is a well-developed well-nourished female appearing in severe abdominal distress HEENT is unremarkable Neck is supple there is no JVD Lungs are clear Heart irregular rhythm S1 and S2 are normal no gallops or rubs 2/6 systolic ejection murmur at the left sternal border Abdomen bowel sounds positive tender to palpation Extremities without edema Labs/Pavan Results: Laboratory Tests 07/23 07/23 07/22 07/22 0645 0300 2340 2340 Chemistry Lactic Acid (0.7 - 2.1 mmol/L) 1.2 Troponin I (< 0.11 ng/ml) 0.15 *H Cancelled 0.16 *H 07/22 2023 Chemistry Sodium (137 - 145 mmol/L) 137 Potassium (3.5 - 5.1 mmol/L) 5.1 Chloride (98 - 107 mmol/L) 96 L Carbon Dioxide (22 - 30 mmol/L) 30 Anion Gap (5 - 16) 11 BUN (7 - 17 mg/dL) 24 H Creatinine (0.5 - 1.0 mg/dL) 1.0 Estimated GFR (>60 ml/min) 53 L BUN/Creatinine Ratio (7 - 25 %) 24.0 Glucose (65 - 99 mg/dL) 139 H Lactic Acid (0.7 - 2.1 mmol/L) 2.0 Calcium (8.4 - 10.2 mg/dL) 10.1 Total Bilirubin (0.2 - 1.3 mg/dL) 0.9 AST (14 - 36 U/L) 27 ALT (9 - 52 U/L) 27 Alkaline Phosphatase (<127 U/L) 69 Troponin I (< 0.11 ng/ml) 0.14 *H Total Protein (6.3 - 8.2 g/dL) 7.6 Albumin (3.5 - 5.0 g/dL) 4.3 Globulin (1.9 - 4.2 gm/dL) 3.3 Albumin/Globulin Ratio (1.1 - 2.2 %) 1.3 Amylase (30 - 110 U/L) 40 Lipase (23 - 300 U/L) 42 Hematology CBC w Diff NO MAN DIFF REQ WBC (4.8 - 10.8 /CUMM) 9.0 RBC (4.20 - 5.40 /CUMM) 4.72 Hgb (12.0 - 16.0 G/DL) 14.1 Hct (37 - 47 %) 41.7 MCV (81.0 - 99.0 FL) 88.3 MCH (27.0 - 31.0 PG) 29.8 RDW (11.5 - 14.5 %) 13.9 Plt Count (130 - 400 /CUMM) 211 MPV (7.4 - 10.4 FL) 8.7 Gran % (42.2 - 75.2 %) 77.1 H Lymphocytes % (20.5 - 51.1 %) 15.3 L Monocytes % (1.7 - 9.3 %) 7.1 Eosinophils % (0 - 5 %) 0.2 Basophils % (0.0 - 2.0 %) 0.3 Absolute Granulocytes (1.4 - 6.5 /CUMM) 6.9 H Absolute Lymphocytes (1.2 - 3.4 /CUMM) 1.4 Absolute Monocytes (0.10 - 0.60 /CUMM) 0.6 Absolute Eosinophils (0.0 - 0.7 /CUMM) 0 Absolute Basophils (0.0 - 0.2 /CUMM) 0 PUBS MCHC (33.0 - 37.0 G/DL) 33.8 Diagnostic Data EKG Results Paced rhythm with baseline atrial fibrillation nonspecific ST-T wave changes Other Results Abdominal x-ray IMPRESSION: Left-sided obturator hernia causing small bowel obstruction.. Assessment/Plan Assessment/Plan 1. Persistent atrial fibrillation on Eliquis last dose was approximately 36 hours ago. Her ventricular response is controlled. 2. Sick sinus syndrome status post pacemaker last interrogation was in March demonstrated normal function 3. History of Takutsubo cardiomyopathy resolved most recent ejection fraction is 45-50% 4. Moderate mitral regurgitation and mild aortic stenosis with moderate to severe tricuspid regurgitation 5. Hypertension 6. Severe abdominal pain with obturator hernia causing small bowel obstruction 7. Chronic diastolic heart failure stable Recommendations 1. Continue carvedilol for history of diastolic heart failure and rate control for atrial fibrillation. If she is unable to tolerate issues would recommend IV metoprolol 2. Would not resume Eliquis at present 3. Continue to monitor on telemetry 4. Patient is stable from the cardiac standpoint for surgery since her last dose of Eliquis was over 36 hours ago. She would be considered at moderate risk given her multiple comorbidities 5. Recommend continued telemetry monitoring 6. Monitor for any signs and symptoms of congestive heart failure given her history Thank you for allowing [facility] to participate in the care of your patient. Consult Acknowledgment - Thank you for your consult request.
--- NOTE | 2016-07-23 13:30 | PN- Housestaff ---
Subjective Follow-up For: 1.left-sided obturator hernia causing small bowel obstruction.. 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 4.HTN 5.Hypothyroidism. 6. A fibrillation Complaints: no complaints Subjective: Was seen and examined the patient today morning, she is in extreme excruciating pain, IV morphine was changed from every 6 to quit 4 when necessary, the abdominal pain is diffuse and all over, she cannot take anything by mouth given the medications, we are holding off the morning by mouth medications, if her blood pressure or heart rate goes high then she will require her usual medications, with those antiemetic first and then give her the medications. Daughter was at bedside who is a registered nurse and was updated with the entire plan. Patient will be taken to OR later today. Review of Systems Constitutional: Reports: malaise, weakness. Denies: chills, diaphoresis, fever, unexplained weight loss. EENTM: Denies: blurred vision, double vision, visual changes, eye pain, eye drainage. Cardiovascular: Denies: chest pain, edema, orthopena, palpitations, peripheral edema, syncope. Respiratory: Denies: cough, hemoptysis, orthopnea, short of breath, sputum production. Gastrointestinal: Reports: abdominal pain, bloating, nausea, vomiting. Denies: constipation, diarrhea, distention, bowel incontinence, melena, bloody stool, changes in stool , steatorrhea. Genitourinary: Reports: no symptoms. Musculoskeletal: Denies: back pain, gout, joint pain, joint swelling. Skin: Reports: no symptoms. Neurological/Psychological: Reports: no symptoms. Hematologic/Endocrine: Reports: no symptoms. Immunologic/Allergic: Reports: no symptoms. Objective Last 24 Hrs of Vital Signs/I&O Vital Signs Date Time Temp Pulse Resp B/P Pulse O2 O2 Flow FiO2 Ox Delivery Rate 07/23 0811 98.2 92 20 132/82 95 Room Air 07/23 0800 Room Air 07/23 0334 98.5 95 20 104/80 07/23 0140 98.5 95 20 104/80 95 Room Air 07/226 96.5 86 16 136/63 93 Room Air 07/227 98.0 83 16 172/88 96 Room Air 07/22 2033 96 Room Air 07/22 2008 96.5 100 18 156/72 99 Room Air Intake & Output 07/23 1600 07/23 0800 07/23 0000 Intake Total 0 Output Total 0 Balance 0 Intake, Oral 0 Output, Urine 0 Patient 50.349 kg 50.349 kg 63.503 kg Weight Physical Exam General Appearance: Alert, Oriented X3, Severe Distress, abdominal pain Skin: No Rashes, No Breakdown, No Significant Lesion HEENT: Atraumatic, PERRLA, EOMI Neck: Supple, No JVD, No thryomegaly Lymphatic: no lad Cardiovascular: Normal S1, irregularly irregular Lungs: Clear to Auscultation, Normal Air Movement Abdomen: sever tenderness, grimacing in pain, decreased BS Assessment/Plan Assessment: Ms Dubois and 86-year-old lady with past medical history of atrial fibrillation, multiple falls is in today to the emergency department on 2016 complaining of severe abdominal pain, 10 out of 10, mainly periumbilical and central in location, diffuse everywhere associated with nausea and episodes of dry heaving. She was afebrile on presentation, tachycardic to 100, respiratory rate of 18, blood pressure 172/88, she was 96% on room air. Labs were essentially normal, troponin was found elevated to 0.14, which was trended to 0.16 and then came down to 0.15, this was thought to be secondary to demand ischemia. Problem list along with assessment and plan Problem #1 demand ischemia. * Patient had an increase in troponin in the setting of cardiomyopathy. The first troponin was 0.14, second was 0.16, third one came down to 0.15, no acute ST-T wave changes in EKG except T-wave inversions in 2, 3, aVF and precordial leads of V4 to V6 which existed on old EKG as well. * Cardiology on board. * Continue carvedilol. * Continue atorvastatin 40 mg daily. * No plan for IV heparin and mild troponin elevation was thought to be secondary to demand ischemia. Problem #2 severe abdominal pain secondary to her she'll obstruction with obturator hernia * Ms guidry has severe pain since today morning, there is a high suspicion for strangulation and patient might need to go for urgent surgery. * Surgical PA evaluated the patient. * Patient continues to be nothing by mouth and will go for surgery later today in the day as she was an add on. * Continue pain management with 2 mg IV morphine every 4 when necessary. * Surgery on board. * Continue to follow recommendations. 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 * Continue home medications of lisinopril, Lasix, carvedilol. * Cardiology has cleared the patient for surgery. Problem #4 history of hypertension. * Blood pressure slightly on the higher side 132/80, however patient was extremely nauseous and has not received her morning dose of blood pressure medication. * If the blood pressure tends to be higher than we will does an antiemetic and give the blood pressure medications after that. * Continue to monitor closely. Problem #5 history of hypothyroidism. * Continue Synthyroid. Problem #6 history of atrial fibrillation. * Eliquis is on hold for anticipated surgery today. * Continue rate control with metoprolol * Patient was cleared for surgery by cardiology. Patient is full code DVT prophylaxis with Lovenox 30 mg subcutaneous, can dc once Mild to moderate and severe pain pathway. Problem List: 1. Atrial fibrillation 2. Congestive heart failure 3. Small bowel obstruction 4. Elevated troponin Pain Ratin Pain Location: diffuse abdominla Pain Goal: Pain 4 or less Pain Plan: iv mprhoine Tomorrow's Labs & Rationales: cbc, bep, inr DVT/Prophylaxis: pharmacological
--- NOTE | 2016-07-23 14:40 | Event Note ---
Event Note Event Note: I spoke with the patient and daughter bedside regarding her last dose of Eliquis. Patient thought her last dose of Eliquis was Friday evening but the daughter states that she gave her eliquis along with other home meds yesterday evening (07/22/16) around 18:30pm before coming into the hospital.
--- NOTE | 2016-07-23 14:51 | Patient Discharge Instructions ---
Discharge Instructions General Discharge Information You were seen/treated for: small bowel obstruction with obturator hernia Special Instructions: PLEASE GET YOUR BANDAR REMOVED ON 07/15/[address] SMITH'S OFFICE. NUMBER PROVIDED. please follow up with your PCP within one week of discharge. Please continue ot take your medications as prescribed. Diet Continue normal diet: Yes Recommended Diet: Regular Activity Full Activity/No Limits: No Activity Self Limited: Yes Acute Coronary Syndrome Inclusion Criteria At DC or during hospital stay patient has or had the following: ACS DIAGNOSIS No Discharge Core Measures Meds if any: Prescribed or Continued at Discharge Meds if any: NOT Prescribed or Continued at Discharge Congestive Heart Failure Inclusion Criteria At DC or during hospital stay patient has or had the following: CHF DIAGNOSIS No Discharge Core Measures Meds if any: Prescribed or Continued at Discharge Meds if any: NOT Prescribed or Continued at Discharge Cerebrovascular accident Inclusion Criteria At DC or during hospital stay patient has or had the following: CVA/TIA Diagnosis No Discharge Core Measures Meds if any: Prescribed or Continued at Discharge Meds if any: NOT Prescribed or Continued at Discharge Venous thromboembolism Inclusion Criteria VTE Diagnosis No VTE Type NONE VTE Confirmed by (Test) NONE Discharge Core Measures - Per Current guidelines, there needs to be overlap - treatment for the first 5 days of Warfarin therapy. - If discharged on Warfarin prior to 5 days of - overlap therapy, the patient will need to be - assessed for post discharge needs including - *Post discharge parental anticoagulation - *Warfarin and/or parental anticoagulation education - *Follow up date to check INR post discharge At least 5 days overlap therapy as Inpatient No Meds if any: Prescribed or Continued at Discharge Note: Overlap Therapy is Warfarin and Anticoagulant Meds if any: NOT Prescribed or Continued at Discharge
[2016-07-23 16:31] VITALS: BP 118/72
--- NOTE | 2016-07-23 16:38 | RADIOLOGY REPORT ---
EXAMINATION: XR ABDOMEN MULTIPLE VIEWS CLINICAL INDICATION: Follow-up small bowel obstruction. COMPARISON: Scanogram from CT abdomen and pelvis 07/22/2016. TECHNIQUE: Upright and supine views of the abdomen. FINDINGS: A large hiatal hernia is again noted. There is a right-sided dual-lead pacer is identified. Numerous mildly dilated air and fluid-filled loops of small bowel appear largely unchanged compared with the previous days examination. There is no evidence of intraperitoneal free air on today's examination. IMPRESSION: Stable appearing small bowel obstruction. Please see previous CT report for further information.
[2016-07-24 00:33] VITALS: BP 114/70
--- NOTE | 2016-07-24 06:51 | PN- Student ---
See Addendum ARRON REED 07/24/16 0643: Subjective Subjective: Patient denies any complaints or problems over night, but states she is ready to have the abdominal pain resolved. She states the pain medication and medications for nausea have been working well. Patient denies any chest pain, shortness of breath, nausea, vomiting, or headache. She denies flatus and bowel movements. She complains of dry mouth from npo orders. She further adds she has left hip pain but reports it is a constant discomfort since a previous hip fracture. She denies any changes in her hip pain from her "normal" discomfort. Objective Objective: Vitals BP: 114/70 Pulse: 94 Resp: 20 Temp: 98.3 F SpO2: 94% RA Physical Exam General: Patient resting comfortable in no acute distress. Alert and oreinted x 3. Head: Normal cephalic, atraumatic. Eyes: PERRL, EOMI Mouth: Moist mucous membranes. Neck: Supple, no jvd, no lymphadenopathy Lungs: Clear to auscultation bilaterally, no ronchi, wheeze or rales. Heart: Irregular-no murmurs, rubs or gallops. Abd: Hyperactive bowel sounds. Soft, tender to palpation of right lower quadrant with rebound tenderness in lower left quadrant. No masses. Extremities: Full range of motion, no pedal edema, 2+ pulses bilaterally. No masses at medial aspects of thighs. Tender to palpation of lateral aspect of left thigh. Admission Lab Results I reviewed the following labs: Laboratory Tests 07/23 1359 Urines Urine Color (YEL,AMB,STR) YEL Urine Clarity (CLEAR) CLEAR Urine pH (5.0 - 8.0) 6.0 Ur Specific [place] (1.001 - 1.035) 1.015 Urine Protein (NEG,<30 MG/DL) TRACE H Urine Ketones (NEG) NEG Urine Nitrite (NEG) NEG Urine Bilirubin (NEG) NEG Urine Urobilinogen (0.1 - 1.0 EU/dl) 0.2 Ur Leukocyte Esterase (NEG) NEG Ur Microscopic SEDIMENT EXAMINED Urine RBC (0 - 5 /HPF) RARE Urine WBC (0 - 2 /HPF) 3-5 H Ur Epithelial Cells (NONE,FEW) FEW Hyaline Casts (0/LPF) FEW H Urine Hemoglobin (NEG) NEG Urine Glucose (N MG/DL) NEG Assessment/Plan Assessment: Patient is a 86 year old female with a hisorty of chf, afib, htn, dyslipidemia, osteoporosis and hypothyroidism that presents with a persistent sbo. Plan: -continue npo -continue zofran prn -continue ppi daily -continue pain managment prn -OR as planned. Will discuss with surgical PA staff. Arron KISER-S2 MISHEL HARRIS 07/24/16 0848: Assessment/Plan Plan: AGREE WITH ABOVE PA-S NOTE. GOING TO OR THIS AFTERNOON. PATIENT UNDERSTANDS AND AGREES WITH PLAN. WILL D/W
--- NOTE | 2016-07-24 07:35 | PN- Housestaff ---
Subjective Follow-up For: intestinal obstruction Subjective: Patient seen and examined. Reports of abdominal discomfort and nausea. Patient will have laparotomy done today. Review of Systems Constitutional: Reports: see HPI. Objective Last 24 Hrs of Vital Signs/I&O Vital Signs Date Time Temp Pulse Resp B/P Pulse O2 O2 Flow FiO2 Ox Delivery Rate 07/24 1649 Room Air 07/24 1629 Room Air 07/24 1006 110/70 07/24 0819 98.1 92 20 106/62 93 Room Air 07/24 0033 98.3 94 20 114/70 94 Room Air Intake & Output 07/24 1600 07/24 0800 07/24 0000 Intake Total 400 350 560.2 Output Total 450 250 350 Balance -50 100 210.2 Intake, IV 400 350 560.2 Intake, Oral 0 0 0 Number 0 Bowel Movements Output, Urine 450 250 350 Patient 50.349 kg Weight Physical Exam General Appearance: Alert, Oriented X3, Cooperative Skin: No Rashes, No Breakdown HEENT: Atraumatic Neck: Supple Cardiovascular: Normal S1, Normal S2 Lungs: Normal Air Movement Abdomen: Soft, No Tenderness Neurological: Normal Speech Current Medications: Current Medications Sig/Amber Start time Last Medication Dose Route Stop Time Status Admin Acetaminophen 650 MG Q6P PRN 07/23 0015 AC PO Acetaminophen 1,000 MG Q6P PRN 07/23 0015 AC IV Atorvastatin Calcium 40 MG DAILY 07/23 1000 AC PO Carvedilol 12.5 MG BID 07/22 2344 AC 07/24 PO 1006 Cefazolin Sodium 1,000 MG IQ8 07/25 0000 AC IV 07/25 0801 Dextrose/Sodium 1,000 ML Q20H 07/23 0015 AC 07/24 Chloride IV 0015 Enoxaparin Sodium 30 MG DAILY 07/23 1000 AC 07/23 SC 0900 Furosemide 20 MG QAM 07/23 1000 AC PO Levothyroxine Sodium 0.0375 MG Q48@0700 07/24 0700 AC PO Levothyroxine Sodium 0.075 MG Q48@0707/23 0700 AC 07/23 PO 0655 Lisinopril 2.5 MG DAILY 07/23 1000 AC PO Magnesium Oxide 400 MG DAILY 07/23 1000 AC PO Morphine Sulfate 2 MG Q3P PRN 07/23 1629 AC 07/24 IV 1246 Omeprazole 40 MG DAILY AC 07/24 0700 AC PO Ondansetron HCl 4 MG .STK-MED ONE 07/24 0012 DC IM 07/24 0013 Simethicone 80 MG Q4P PRN 07/22 2345 AC PO Last 24 Hrs of Lab/Pavan Results Last 24 Hrs of Labs/Mics: Laboratory Tests 07/24/16 0700: Anion Gap 7, Estimated GFR 53 L, BUN/Creatinine Ratio 20.0, Phosphorus 3.2, Magnesium 2.0 Assessment/Plan Assessment: Ms Dubois and 86-year-old lady with past medical history of atrial fibrillation, multiple falls is in today to the emergency department on 2016 complaining of severe abdominal pain, 10 out of 10, mainly periumbilical and central in location, diffuse everywhere associated with nausea and episodes of dry heaving. She was afebrile on presentation, tachycardic to 100, respiratory rate of 18, blood pressure 172/88, she was 96% on room air. Labs were essentially normal, troponin was found elevated to 0.14, which was trended to 0.16 and then came down to 0.15, this was thought to be secondary to demand ischemia. Problem list along with assessment and plan Problem #1 demand ischemia. Patient had an increase in troponin in the setting of cardiomyopathy. Troponins are stable and no new ekg changes. Cardiology on board. Continue carvedilol. Continue atorvastatin 40 mg daily. Problem #2 severe abdominal pain secondary to her she'll obstruction with obturator hernia Ms guidry has severe pain since today morning, there is a high suspicion for strangulation. Patient continues to be nothing by mouth and will go for surgery later today. Continue pain management with 2 mg IV morphine every 4 when necessary. Surgery on board. Continue to follow recommendations. 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 Continue home medications of lisinopril, Lasix, carvedilol. Cardiology has cleared the patient for surgery. Problem #4 history of hypothyroidism. * Continue Synthyroid. Problem #5 history of atrial fibrillation. * Eliquis is on hold for anticipated surgery today. * Continue rate control with metoprolol * Patient was cleared for surgery by cardiology. Patient is full code DVT prophylaxis with Lovenox 30 mg subcutaneous, can dc once Mild to moderate and severe pain pathway. Problem List: 1. Small bowel obstruction Pain Ratin Pain Location: abdomen Pain Goal: Pain 4 or less Pain Plan: tylenol prn for pain Tomorrow's Labs & Rationales: cbc bep Mild to moderate and severe pain pathway. Problem List: 1. Small bowel obstruction Pain Ratin Pain Goal: Pain 4 or less Pain Plan: tylenol prn for pain Tomorrow's Labs & Rationales: cbc bep
[2016-07-24 08:19] VITALS: BP 106/62
--- NOTE | 2016-07-24 09:31 | PN- Att Addend ---
Attending Addendum Attending Brief Note Patient complains of abdominal discomfort with associated nausea General Appearance: Alert, No Acute Distress Skin: Grossly normal HEENT: PEERLA Neck: Supple, No JVD Cardiovascular: Regular Rate, Normal S1, Normal S2, No Murmurs Lungs: Clear to Auscultation, Normal Air Movement Abdomen: Normal Bowel Sounds, Soft, No Tenderness Neurological: Normal Speech, Strength at 5/5 X4 Ext, Cranial Nerves 3-12 NL, Reflexes 2+ Extremities: No Clubbing, No Cyanosis, No Edema Vascular: Normal Pulses Assessment 86-year-old with history of atrial fibrillation on Eliquis and presenting with complaining of abdominal pain. CAT scan suggested obturator hernia with small bowel obstruction. Patient is currently nothing by mouth for exploratory laparotomy today. Echocardiogram is pending Plan Hold Eliquis Nothing by mouth and IV hydration IV morphine as needed for pain May continue other home meds DVT prophylaxis Current Medications Sig/Amber Start time Last Medication Dose Route Stop Time Status Admin Acetaminophen 650 MG Q6P PRN 07/23 0015 AC PO Acetaminophen 1,000 MG Q6P PRN 07/23 0015 AC IV Atorvastatin Calcium 20 MG DAILY 07/23 1000 DC PO Atorvastatin Calcium 40 MG DAILY 07/23 1000 AC PO Carvedilol 12.5 MG BID 07/22 2344 AC PO Dextrose/Sodium 1,000 ML Q20H 07/23 0015 AC 07/24 Chloride IV 0015 Enoxaparin Sodium 30 MG DAILY 07/23 1000 AC 07/23 SC 0900 Furosemide 20 MG QAM 07/23 1000 AC PO Levothyroxine Sodium 0.0375 MG Q48@0700 07/24 0700 AC PO Levothyroxine Sodium 0.075 MG Q48 07/23 1000 DC PO Levothyroxine Sodium 0.075 MG Q48@0700 07/23 0700 AC 07/23 PO 0655 Lisinopril 2.5 MG DAILY 07/23 1000 AC PO Magnesium Oxide 400 MG DAILY 07/23 1000 AC PO Morphine Sulfate 2 MG Q3P PRN 07/23 1629 AC 07/24 IV 0342 Morphine Sulfate 2 MG Q4 HRS NEEDED PRN 07/23 1345 DC 07/23 IV 1339 Morphine Sulfate 2 MG Q6-PRN PRN 07/23 0015 DC 07/23 IV 0851 Omeprazole 40 MG DAILY AC 07/24 0700 AC PO Ondansetron HCl 4 MG .STK-MED ONE 07/24 0012 DC IM 07/24 0013 Ondansetron HCl 4 MG ONCE ONE 07/23 1845 DC 07/24 IV 07/23 1846 0015 Patient Medication 1 ED .STK-MED ONE 07/23 1349 DC [facility] ED 07/23 1350 Simethicone 80 MG Q4P PRN 07/22 2345 AC PO Laboratory Tests 07/24 07/23 0700 1359 Chemistry Sodium (137 - 145 mmol/L) 136 L Potassium (3.5 - 5.1 mmol/L) 4.3 Chloride (98 - 107 mmol/L) 99 Carbon Dioxide (22 - 30 mmol/L) 29 Anion Gap (5 - 16) 7 BUN (7 - 17 mg/dL) 20 H Creatinine (0.5 - 1.0 mg/dL) 1.0 Estimated GFR (>60 ml/min) 53 L BUN/Creatinine Ratio (7 - 25 %) 20.0 Phosphorus (2.5 - 4.5 mg/dL) 3.2 Magnesium (1.6 - 2.3 mg/dL) 2.0 Urines Urine Color (YEL,AMB,STR) YEL Urine Clarity (CLEAR) CLEAR Urine pH (5.0 - 8.0) 6.0 Ur Specific [place] (1.001 - 1.035) 1.015 Urine Protein (NEG,<30 MG/DL) TRACE H Urine Ketones (NEG) NEG Urine Nitrite (NEG) NEG Urine Bilirubin (NEG) NEG Urine Urobilinogen (0.1 - 1.0 EU/dl) 0.2 Ur Leukocyte Esterase (NEG) NEG Ur Microscopic SEDIMENT EXAMINED Urine RBC (0 - 5 /HPF) RARE Urine WBC (0 - 2 /HPF) 3-5 H Ur Epithelial Cells (NONE,FEW) FEW Hyaline Casts (0/LPF) FEW H Urine Hemoglobin (NEG) NEG Urine Glucose (N MG/DL) NEG Vital Signs Date Time Temp Pulse Resp B/P Pulse O2 O2 Flow FiO2 Ox Delivery Rate 07/24 0819 98.1 92 20 106/62 93 Room Air 07/24 0033 98.3 94 20 114/70 94 Room Air 07/23 1631 97.9 84 20 118/72 94 Room Air
--- NOTE | 2016-07-24 11:43 | PN- Cardiology ---
Subjective Subjective: Patient still with nausea and abdominal discomfort. No bowel movement. No chest pain or dyspnea. Objective Vital Signs and I&Os Vital Signs Date Time Temp Pulse Resp B/P Pulse O2 O2 Flow FiO2 Ox Delivery Rate 07/24 1006 110/70 07/24 0819 98.1 92 20 106/62 93 Room Air 07/24 0033 98.3 94 20 114/70 94 Room Air 07/23 1631 97.9 84 20 118/72 94 Room Air Intake & Output 07/24 1600 07/24 0800 07/24 0000 07/23 1600 07/23 0800 07/23 0000 Intake Total 350 560.2 422.4 0 Output Total 250 350 300 0 Balance 100 210.2 122.4 0 Intake, IV 350 560.2 422.4 Intake, Oral 0 0 0 Number 0 Bowel Movements Output, Urine 250 350 300 0 Patient 111 lb 111 lb 111 lb 140 lb Weight Physical Exam: General: no apparent distress. Alert. Eyes: No obvious scleral icterus. HEENT: No jugular venous distention or abnormal jugular venous pulsations. Cardiovascular: Normal intensity S1/S2. Irregular. One out of 6 systolic murmur. Respiratory: No rales or rhonchi Abdomen: No guarding Musculoskeletal: No clubbing or cyanosis noted, no edema Skin: Warm Neurologic: No gross focal deficits noted. Current Medications: Current Medications Sig/Amber Start time Last Medication Dose Route Stop Time Status Admin Acetaminophen 650 MG Q6P PRN 07/23 0015 AC PO Acetaminophen 1,000 MG Q6P PRN 07/23 0015 AC IV Atorvastatin Calcium 40 MG DAILY 07/23 1000 AC PO Carvedilol 12.5 MG BID 07/22 2344 AC 07/24 PO 1006 Dextrose/Sodium 1,000 ML Q20H 07/23 0015 AC 07/24 Chloride IV 0015 Enoxaparin Sodium 30 MG DAILY 07/23 1000 AC 07/23 SC 0900 Furosemide 20 MG QAM 07/23 1000 AC PO Levothyroxine Sodium 0.0375 MG Q48@0707/24 0700 AC PO Levothyroxine Sodium 0.075 MG Q48@0700 07/23 0700 AC 07/23 PO 0655 Lisinopril 2.5 MG DAILY 07/23 1000 AC PO Magnesium Oxide 400 MG DAILY 07/23 1000 AC PO Morphine Sulfate 2 MG Q3P PRN 07/23 1629 AC 07/24 IV 1006 Morphine Sulfate 2 MG Q4 HRS NEEDED PRN 07/23 1345 DC 07/23 IV 1339 Morphine Sulfate 2 MG Q6-PRN PRN 07/23 0015 DC 07/23 IV 0851 Omeprazole 40 MG DAILY AC 07/24 0700 AC PO Ondansetron HCl 4 MG .STK-MED ONE 07/24 0012 DC IM 07/24 0013 Ondansetron HCl 4 MG ONCE ONE 07/23 1845 DC 07/24 IV 07/23 1846 0015 Patient Medication 1 ED .STK-MED ONE 07/23 1349 IN Teaching ED 07/23 1350 Simethicone 80 MG Q4P PRN 07/22 2345 AC PO Results Last 48 Hrs of Labs/Mics: Laboratory Tests 07/24/16 0700: Anion Gap 7, Estimated GFR 53 L, BUN/Creatinine Ratio 20.0, Phosphorus 3.2, Magnesium 2.0 07/23/16 1359: Urine Color YEL, Urine Clarity CLEAR, Urine pH 6.0, Ur Specific [place] 1.015, Urine Protein TRACE H, Urine Ketones NEG, Urine Nitrite NEG, Urine Bilirubin NEG, Urine Urobilinogen 0.2, Ur Leukocyte Esterase NEG, Ur Microscopic SEDIMENT EXAMINED, Urine RBC RARE, Urine WBC 3-5 H, Ur Epithelial Cells FEW, Hyaline Casts FEW H, Urine Hemoglobin NEG, Urine Glucose NEG 07/23/16 0645: Troponin I 0.15 *H 07/23/16 0300: Troponin I Cancelled 07/22/16 2340: Troponin I 0.16 *H 07/22/16 2340: Lactic Acid 1.2 07/22/16 2024: Anion Gap 11, Estimated GFR 53 L, BUN/Creatinine Ratio 24.0, Glucose 139 H, Lactic Acid 2.0, Calcium 10.1, Total Bilirubin 0.9, AST 27, ALT 27, Alkaline Phosphatase 69, Troponin I 0.14 *H, Total Protein 7.6, Albumin 4.3, Globulin 3.3 , Albumin/Globulin Ratio 1.3, Amylase 40, Lipase 42, CBC w Diff NO MAN DIFF REQ, RBC 4.72, MCV 88.3, MCH 29.8, RDW 13.9, MPV 8.7, Gran % 77.1 H, Lymphocytes % 15.3 L, Monocytes % 7.1, Eosinophils % 0.2, Basophils % 0.3, Absolute Granulocytes 6.9 H, Absolute Lymphocytes 1.4, Absolute Monocytes 0.6, Absolute Eosinophils 0, Absolute Basophils 0, PUBS MCHC 33.8 Recent Imaging Studies: Telemetry tracings were personally reviewed and show atrial fibrillation with grossly controlled ventricular response rate and occasional ventricular pacing Assessment/Plan Assessment/Plan 1. Persistent atrial fibrillation on outpatient Eliquis 2. Sick sinus syndrome status post pacemaker last interrogation was in March demonstrated normal function 3. History of Takutsubo cardiomyopathy resolved most recent ejection fraction is 45-50% 4. Moderate mitral regurgitation and mild aortic stenosis with moderate to severe tricuspid regurgitation 5. Hypertension 6. Abdominal pain with obturator hernia causing small bowel obstruction 7. Chronic diastolic heart failure stable 8. Demand ischemia Still with nausea and abdominal discomfort. No bowel movements. No chest pain or dyspnea. Patient remains stable and is reportedly planned for exploratory laparotomy. Eliquis remains on hold. She currently appears euvolemic. Continue on oral carvedilol. Flat troponin curve is consistent with demand ischemia. Qasim Mueller MD [facility] Continue telemetry? Yes
--- NOTE | 2016-07-24 18:29 | Operative Report ---
Operative/Inv Procedure Report Surgery Date: 07/24/16 Name of Procedure: laparoscopic left obturator hernia repair with mesh, open small bowel resection Pre-Operative Diagnosis: Incarcerated left obturator hernia, SBO Post-Operative Diagnosis: Same Estimated Blood Loss: less than 50ml Surgeon/Biofuels Processing Technician: KATHERINE MCKEON Anesthesia: general endotracheal tube IV Fluids: 1500 cc Implants: BIO-A mesh Drains: none Specimens: portion of small bowel, incarcerated fatty tissue Complications: none Condition: stable Operative Indication: This is an 86-year-old female that presented to the emergency room with abdominal pain nausea and vomiting. As per the patient and her daughter there has been on and off abdominal discomfort for the past couple months but 24 hours prior to presentation to the ER the abdominal pain got very severe and the patient was not able to tolerate anything by mouth. In the emergency room patient underwent a CT scan of the abdomen and pelvis that showed a left obturator hernia causing a small bowel obstruction. Upon examination in the emergency room patient reported was complete relief of her pain and nausea and vomiting. Patient was admitted to the floor for observation and monitoring of mildly elevated troponins. Of note patient was also an Eliquis, which she took just before coming into the emergency room. After admission patient continued to have abdominal discomfort with on and off nausea. Given the recent intake of Eliquis, to prevent bleeding, waiting 24-36 hours was warranted. Clinically patient appeared to be stable. Once she was stable to go to the operating room, a laparoscopic obturator hernia repair with possible bowel resection (in case of ischemic bowel) was discussed in detail with the patient and the daughter. All risks including but not limited to bleeding, infection, anastomotic breakdown, recurrence, and injury to the bowel were discussed in detail. The patient and the daughter understood everything and decided to proceed. Operative/Procedure Note Note: The patient was brought to the operating room and placed on the table in supine position. Venodyne stockings were placed and adequate general endotracheal anesthesia was obtained. Patient was prepped and draped in standard surgical fashion. A 2 cm incision was made in the midline 3-4 cm above the umbilicus. This incision was carried through the subcutaneous tissue to the fascia. Once the fascia was clearly visualized was picked up between 2 Rodolfo clamps and divided in the midline. Once we entered the peritoneum 2 stay 0 Vicryl sutures were placed on each side and a 12 mm blunt port was inserted. The abdominal cavity was insufflated to 15 mmHg. A 10 mm 30 laparoscope was introduced and upon initial examination we did note some dilated loops of hyperemic bowel. The patient was placed in Trendelenburg position and 5 mm ports were placed in the right lateral position and in the right lower quadrant. We brought our attention to the left side of the pelvis and a loop of small bowel was noted going into the left obturator canal. The small bowel was reduced with ease. The loop that was incarcerated initially did appear dusky with some areas of questionable ischemia. At that point we began dissecting the peritoneum off the left side of the pelvis until we got to the area of the left obturator hernia. The hernia sac and contents of the hernia were reduced using blunt dissection. The fatty tissue that was reduced appear necrotic and was excised. A bio-a mesh was cut to size and placed in the abdominal cavity. The piece of mesh was placed in the preperitoneal space covering the obturator canal. The peritoneum was then reattached to the anterior abdominal wall using absorb attacks. Our repair appeared adequate and no bleeding was noted. We then brought our attention back to the incarcerated small bowel and there was persistently an area of narrowing with some questionable ischemia and ulceration. At that point a decision was made to do a small bowel resection. The abdomen was desufflated and the ports were removed. The 12 mm port site was extended down towards the umbilicus and the small bowel was brought out through the incision. The small bowel was divided proximally and distally to the area of questionable ischemia using 60 mm celaya staple loads. The mesentery was divided using sequential clamps and 2-0 Vicryl ties. The resected small bowel was handed off the field. Following this a side to side small bowel anastomosis was created using a 60 mm celaya staple load, the common enterotomy was closed using another 60 mm celaya staple load. The mesenteric defect was closed using 3-0 silk suture in a running fashion. A 3-0 silk suture was placed in the crotch of the staple line to relieve the tension and another imbricating the anterior staple line as well. We examined our anastomosis, it appeared intact and no obvious bleeding was noted. The small bowel was then returned in the abdominal cavity. The fascia was closed using 0 Maxon suture in a running fashion. The skin was closed using erika. Sterile dressing was placed. The patient was successfully extubated and transferred to the recovery room in stable condition. The patient tolerated the procedure well with no complications. Findings: left obturator defect with incarcerated small bowel, area of ? ischemic stricture, pre-peritoneal Bio-A mesh placement CC: JOSE DONIS,ALESSIA Aguilera
[2016-07-24 20:30] VITALS: BP 128/70
[2016-07-24 23:27] VITALS: BP 114/00
[2016-07-25 08:00] VITALS: BP 100/68
[2016-07-25 08:20] LABS: ABSOLUTE BASOPHIL COUNT 0 /CUMM (0.0-0.2); ABSOLUTE EOSINOPHIL COUNT 0 /CUMM (0.0-0.7); ABSOLUTE LYMPH COUNT 0.4 /CUMM (1.2-3.4); ABSOLUTE MONOCYTE COUNT 0.5 /CUMM (0.10-0.60); BASOPHIL % 0.3 % (0.0-2.0); EOSINOPHIL % 0 % (0-5); MEAN CORPUSCULAR HGB 30.4 PG (27.0-31.0); MEAN CORPUSCULAR HGB CONC 34.1 G/DL (33.0-37.0); MEAN CORPUSCULAR VOLUME 89.1 FL (81.0-99.0); MEAN PLATELET VOLUME 9.7 FL (7.4-10.4); PLATELET COUNT 148 /CUMM (130-400); RBC DISTRIBUTION WIDTH 13.9 % (11.5-14.5); RED BLOOD CELL CT 3.99 /CUMM (4.20-5.40); WHITE BLOOD CELL COUNT 4.9 /CUMM (4.8-10.8)
[2016-07-25 08:33] LABS: HEMATOCRIT 35.5 % (37-47)
--- NOTE | 2016-07-25 09:26 | PN- Att Addend ---
Attending Addendum Attending Brief Note Patient complains of abdominal discomfort General Appearance: Alert, No Acute Distress Skin: Grossly normal HEENT: PEERLA Neck: Supple, No JVD Cardiovascular: Regular Rate, Normal S1, Normal S2, No Murmurs Lungs: Clear to Auscultation, Normal Air Movement Abdomen: Decreased bowel sounds, clean anterior abdominal wound Neurological: Normal Speech, Strength at 5/5 X4 Ext, Cranial Nerves 3-12 NL, Reflexes 2+ Extremities: No Clubbing, No Cyanosis, No Edema Vascular: Normal Pulses Assessment 86-year-old with history of atrial fibrillation on Eliquis and presenting with complaining of abdominal pain. CAT scan suggested obturator hernia with small bowel obstruction. She is now status post day 1 exploratory laparotomy with hernia repair and small bowel resection for possible ischemia. Plan Resume eliquis once cleared by surgery Nothing by mouth and IV hydration IV morphine as needed for pain May continue other home meds DVT prophylaxis Current Medications Sig/Amber Start time Last Medication Dose Route Stop Time Status Admin Acetaminophen 1,000 MG .STK-MED ONE 07/24 1541 DC IV 07/24 1542 Acetaminophen 650 MG Q6P PRN 07/23 0015 AC PO Acetaminophen 1,000 MG Q6P PRN 07/23 0015 AC IV Atorvastatin Calcium 40 MG DAILY 07/23 1000 AC PO Carvedilol 12.5 MG BID 07/22 2344 AC 07/24 PO 2134 Cefazolin Sodium 1,000 MG IQ8 07/25 0000 DC 07/24 IV 07/25 0801 2312 Dextrose/Sodium 1,000 ML Q20H 07/23 0015 AC 07/24 Chloride IV 1955 Enoxaparin Sodium 30 MG DAILY 07/23 1000 AC 07/23 SC 0900 Fentanyl Citrate 250 MCG .STK-MED ONE 07/24 1541 DC IM 07/24 1542 Furosemide 20 MG QAM 07/23 1000 AC PO Hydromorphone HCl 2 MG .STK-MED ONE 07/24 1841 DC IM 07/24 1842 Hydromorphone HCl 2 MG .STK-MED ONE 07/24 1540 DC IM 07/24 1541 Levothyroxine Sodium 0.0375 MG Q48@0700 07/24 0700 AC PO Levothyroxine Sodium 0.075 MG Q48@0700 07/23 0700 AC 07/25 PO 0612 Lisinopril 2.5 MG DAILY 07/23 1000 AC PO Magnesium Oxide 400 MG DAILY 07/23 1000 AC PO Midazolam HCl 4 MG .STK-MED ONE 07/24 1541 DC IM 07/24 1542 Morphine Sulfate 2 MG Q3P PRN 07/23 1629 AC 07/25 IV 0612 Omeprazole 40 MG DAILY AC 07/24 0700 AC 07/25 PO 0612 Ondansetron HCl 4 MG .STK-MED ONE 07/24 1542 DC IM 07/24 1543 Scopolamine HBr 1 PAT .STK-MED ONE 07/24 1542 DC TOP 07/24 1543 Simethicone 80 MG Q4P PRN 07/22 2345 AC PO Laboratory Tests 07/25 614 Chemistry Sodium (137 - 145 mmol/L) 133 L Potassium (3.5 - 5.1 mmol/L) 4.4 Chloride (98 - 107 mmol/L) 98 Carbon Dioxide (22 - 30 mmol/L) 25 Anion Gap (5 - 16) 10 BUN (7 - 17 mg/dL) 19 H Creatinine (0.5 - 1.0 mg/dL) 0.9 Estimated GFR (>60 ml/min) 60 BUN/Creatinine Ratio (7 - 25 %) 21.1 Magnesium (1.6 - 2.3 mg/dL) 1.8 Hematology CBC w Diff NO MAN DIFF REQ WBC (4.8 - 10.8 /CUMM) 4.9 RBC (4.20 - 5.40 /CUMM) 3.99 L Hgb (12.0 - 16.0 G/DL) 12.1 Hct (37 - 47 %) 35.5 L MCV (81.0 - 99.0 FL) 89.1 MCH (27.0 - 31.0 PG) 30.4 RDW (11.5 - 14.5 %) 13.9 Plt Count (130 - 400 /CUMM) 148 MPV (7.4 - 10.4 FL) 9.7 Gran % (42.2 - 75.2 %) 81.0 H Lymphocytes % (20.5 - 51.1 %) 8.9 L Monocytes % (1.7 - 9.3 %) 9.8 H Eosinophils % (0 - 5 %) 0 Basophils % (0.0 - 2.0 %) 0.3 Absolute Granulocytes (1.4 - 6.5 /CUMM) 4.0 Absolute Lymphocytes (1.2 - 3.4 /CUMM) 0.4 L Absolute Monocytes (0.10 - 0.60 /CUMM) 0.5 Absolute Eosinophils (0.0 - 0.7 /CUMM) 0 Absolute Basophils (0.0 - 0.2 /CUMM) 0 PUBS MCHC (33.0 - 37.0 G/DL) 34.1 Vital Signs Date Time Temp Pulse Resp B/P Pulse O2 O2 Flow FiO2 Ox Delivery Rate 07/25 0800 98.1 93 17 100/68 94 Nasal 2.0L Cannula 07/25 0000 96 Nasal 2.0L Cannula 07/24 2327 97.4 98 16 114/00 96 Nasal 2.0L Cannula 07/24 2134 94 128/70 07/24 2030 98.1 94 22 128/70 96 Nasal 2.0L Cannula 07/24 1649 Room Air 07/24 1629 Room Air 07/24 1006 110/70
--- NOTE | 2016-07-25 11:27 | PN- Cardiology ---
Subjective Subjective: Is now status post surgery. No chest pain or dyspnea. Does have abdominal discomfort. Objective Vital Signs and I&Os Vital Signs Date Time Temp Pulse Resp B/P Pulse O2 O2 Flow FiO2 Ox Delivery Rate 07/25 1012 93 100/68 07/25 1010 93 100/68 07/25 0800 98.1 93 17 100/68 94 Nasal 2.0L Cannula 07/25 0000 96 Nasal 2.0L Cannula 07/24 2327 97.4 98 16 114/00 96 Nasal 2.0L Cannula 07/24 2134 94 128/70 07/24 2030 98.1 94 22 128/70 96 Nasal 2.0L Cannula 07/24 1649 Room Air 07/24 1629 Room Air Intake & Output 07/25 1600 07/25 0800 07/25 0000 07/24 1600 07/24 0800 07/24 0000 Intake Total 650 350 400 350 560.2 Output Total 350 450 250 350 Balance 300 350 -50 100 210.2 Intake, IV 600 300 400 350 560.2 Intake, Oral 50 50 0 0 0 Number 0 0 0 Bowel Movements Output, Urine 350 450 250 350 Patient 110 lb 111 lb Weight Physical Exam: General: no apparent distress. Alert. Eyes: No obvious scleral icterus. HEENT: No jugular venous distention or abnormal jugular venous pulsations. Cardiovascular: Normal intensity S1/S2. Irregular. One out of 6 systolic murmur. Respiratory: No rales or rhonchi Abdomen: Mild tenderness Musculoskeletal: No clubbing or cyanosis noted, no edema Skin: Warm Neurologic: No gross focal deficits noted. Current Medications: Current Medications Sig/Amber Start time Last Medication Dose Route Stop Time Status Admin Acetaminophen 1,000 MG .STK-MED ONE 07/24 1541 DC IV 07/24 1542 Acetaminophen 650 MG Q6P PRN 07/23 0015 AC PO Acetaminophen 1,000 MG Q6P PRN 07/23 0015 AC IV Atorvastatin Calcium 40 MG DAILY 07/23 1000 AC 07/25 PO 1011 Carvedilol 12.5 MG BID 07/22 2344 AC 07/25 PO 1010 Cefazolin Sodium 1,000 MG IQ8 07/25 0000 DC 07/25 IV 07/25 0801 1010 Dextrose/Sodium 1,000 ML Q20H 07/23 0015 AC 07/25 Chloride IV 1026 Enoxaparin Sodium 30 MG DAILY 07/23 1000 AC 07/25 SC 1012 Fentanyl Citrate 250 MCG .STK-MED ONE 07/24 1541 DC IM 07/24 1542 Furosemide 20 MG QAM 07/23 1000 AC 07/25 PO 1010 Hydromorphone HCl 2 MG .STK-MED ONE 07/24 1841 DC IM 07/24 1842 Hydromorphone HCl 2 MG .STK-MED ONE 07/24 1540 DC IM 07/24 1541 Levothyroxine Sodium 0.0375 MG Q48@0700 07/24 0700 AC PO Levothyroxine Sodium 0.075 MG Q48@0700 07/23 0700 AC 07/25 PO 0612 Lisinopril 2.5 MG DAILY 07/23 1000 AC 07/25 PO 1012 Magnesium Oxide 400 MG DAILY 07/23 1000 AC 07/25 PO 1012 Midazolam HCl 4 MG .STK-MED ONE 07/24 1541 DC IM 07/24 1542 Morphine Sulfate 2 MG Q3P PRN 07/23 1629 AC 07/25 IV 1008 Omeprazole 40 MG DAILY AC 07/24 0700 AC 07/25 PO 0612 Ondansetron HCl 4 MG .STK-MED ONE 07/24 1542 DC IM 07/24 1543 Scopolamine HBr 1 PAT .STK-MED ONE 07/24 1542 OK TOP 07/24 1543 Simethicone 80 MG Q4P PRN 07/22 2345 AC PO Results Last 48 Hrs of Labs/Mics: Laboratory Tests 07/25/16 0615: Anion Gap 10, Estimated GFR 60, BUN/Creatinine Ratio 21.1, Magnesium 1.8, CBC w Diff NO MAN DIFF REQ, RBC 3.99 L, MCV 89.1, MCH 30.4, RDW 13.9, MPV 9.7, Gran % 81.0 H, Lymphocytes % 8.9 L, Monocytes % 9.8 H, Eosinophils % 0, Basophils % 0.3, Absolute Granulocytes 4.0, Absolute Lymphocytes 0.4 L, Absolute Monocytes 0.5, Absolute Eosinophils 0, Absolute Basophils 0, PUBS MCHC 34.1 07/24/16 0700: Anion Gap 7, Estimated GFR 53 L, BUN/Creatinine Ratio 20.0, Phosphorus 3.2, Magnesium 2.0 07/23/16 1359: Urine Color YEL, Urine Clarity CLEAR, Urine pH 6.0, Ur Specific [place] 1.015, Urine Protein TRACE H, Urine Ketones NEG, Urine Nitrite NEG, Urine Bilirubin NEG, Urine Urobilinogen 0.2, Ur Leukocyte Esterase NEG, Ur Microscopic SEDIMENT EXAMINED, Urine RBC RARE, Urine WBC 3-5 H, Ur Epithelial Cells FEW, Hyaline Casts FEW H, Urine Hemoglobin NEG, Urine Glucose NEG Recent Imaging Studies: Telemetry tracings were personally reviewed and show atrial fibrillation with occasional ventricular pacing Assessment/Plan Assessment/Plan 1. Persistent atrial fibrillation on outpatient Eliquis 2. Sick sinus syndrome status post pacemaker last interrogation was in March demonstrated normal function 3. History of Takutsubo cardiomyopathy resolved most recent ejection fraction is 45-50% 4. Moderate mitral regurgitation and mild aortic stenosis with moderate to severe tricuspid regurgitation 5. Hypertension 6. Abdominal pain with obturator hernia causing small bowel obstruction now status post hernia repair and partial small bowel resection 7. Chronic diastolic heart failure stable 8. Demand ischemia Cardiac status stable post surgery. Heart rate remains well controlled. Resume Eliquis when cleared by surgery. She remains euvolemic on exam. Qasim Mueller MD [facility] Continue telemetry? No
--- NOTE | 2016-07-25 11:56 | PN- General Surgery ---
See Addendum Subjective Subjective: Patient continues to c/o intermittent nausea but no vomitting. Also notes abdominal discomfort in the areas of her incisions. She denies bowel movement or flatus. She deneis chest pain, shortness of breath and difficulty breathing. Objective Vital Signs and I&Os Vital Signs Date Time Temp Pulse Resp B/P Pulse O2 O2 Flow FiO2 Ox Delivery Rate 07/25 1012 93 100/68 07/25 1010 93 100/68 07/25 0800 98.1 93 17 100/68 94 Nasal 2.0L Cannula 07/25 0000 96 Nasal 2.0L Cannula 07/24 2327 97.4 98 16 114/00 96 Nasal 2.0L Cannula 07/24 2134 94 128/70 07/24 2030 98.1 94 22 128/70 96 Nasal 2.0L Cannula 07/24 1649 Room Air 07/24 1629 Room Air Intake & Output 07/25 1600 07/25 0800 07/25 0000 07/24 1600 07/24 0800 07/24 0000 Intake Total 650 350 400 350 560.2 Output Total 350 450 250 350 Balance 300 350 -50 100 210.2 Intake, IV 600 300 400 350 560.2 Intake, Oral 50 50 0 0 0 Number 0 0 0 Bowel Movements Output, Urine 350 450 250 350 Patient 110 lb 111 lb Weight Physical Exam: General: Alert and oriented x3, no acute distress Cardiac: RRR, s1s2 Pulmonary: C T A bilaterally Abdomen: Non-tender, focal tenderness octavio-incisional, non-distended, bowel sounds absent Extremities: Moves all extremities, distal sensation intact, no peripheral edema, no bilateral calf tenderness Assessment/Plan Assessment/Plan This is an 86 year old female, pod 1, s/p obturator hernia repair with partial small bowel resection -continue npo except sips for now -anti-emetic as needed -hold eliquis today, will consider restart tomorrow -OOB as tolerated -Continue current pain regimen -Anticipate dressing change tomorrow -Will d/w Dr. Barba Core Measures/Miscellaneous Venous Thromboembolism VTE Risk Factors: Age > 40, Surgery VTE Contraindications: No Contraindications VTE Prophylaxis Ordered Inpt Mech & Pharm VTE Diagnosis: No Beta Corrine Is Beta Corrine a Home Med? No Antibiotics Is Patient on Antibiotics? Yes If Yes: prophylaxis
--- NOTE | 2016-07-25 14:37 | PN- Housestaff ---
Subjective Follow-up For: s/p laparotomy for bowel obstruction Subjective: Patient seen and examined. Is s/p surgery open laparotomy. Patient feels well this morning. Reported 5/10 pain, worsenend by movement. Patient remained afebrile, the blood pressure hs remained a little on the low side. Review of Systems Constitutional: Reports: see HPI. Objective Last 24 Hrs of Vital Signs/I&O Vital Signs Date Time Temp Pulse Resp B/P Pulse O2 O2 Flow FiO2 Ox Delivery Rate 07/25 1633 98.2 99 18 102/52 94 Nasal 2.0L Cannula 07/25 1012 93 100/68 07/25 1010 93 100/68 07/25 0800 98.1 93 17 100/68 94 Nasal 2.0L Cannula 07/25 0000 96 Nasal 2.0L Cannula 07/24 2327 97.4 98 16 114/00 96 Nasal 2.0L Cannula 07/24 2134 94 128/70 07/24 2030 98.1 94 22 128/70 96 Nasal 2.0L Cannula Intake & Output 07/25 1600 07/25 0800 07/25 0000 Intake Total 650 350 Output Total 350 Balance 300 350 Intake, IV 600 300 Intake, Oral 50 50 Number 0 0 Bowel Movements Output, Urine 350 Patient 49.895 kg Weight Physical Exam General Appearance: Alert, Oriented X3, Cooperative Skin: No Rashes, No Breakdown HEENT: Atraumatic Neck: Supple Cardiovascular: Regular Rate, Normal S1, Normal S2, No Murmurs Lungs: Clear to Auscultation, Normal Air Movement Abdomen: surgical erika in place, no swelling or bleeding Neurological: Normal Speech, Normal Tone Extremities: No Edema Current Medications: Current Medications Sig/Amber Start time Last Medication Dose Route Stop Time Status Admin Acetaminophen 650 MG Q6P PRN 07/23 0015 AC PO Acetaminophen 1,000 MG Q6P PRN 07/23 0015 AC IV Atorvastatin Calcium 40 MG DAILY 07/23 1000 AC 07/25 PO 1011 Carvedilol 12.5 MG BID 07/22 2344 AC 07/25 PO 1010 Cefazolin Sodium 1,000 MG IQ8 07/25 0000 DC 07/25 IV 07/25 0801 1010 Dextrose/Sodium 1,000 ML Q20H 07/23 0015 AC 07/25 Chloride IV 1026 Enoxaparin Sodium 30 MG DAILY 02/14 1000 AC 07/25 SC 1012 Furosemide 20 MG QAM 07/23 1000 AC 07/25 PO 1010 Hydromorphone HCl 2 MG .STK-MED ONE 07/24 1841 DC IM 07/24 184 Levothyroxine Sodium 0.0375 MG Q48@0700 07/24 0700 AC PO Levothyroxine Sodium 0.075 MG Q48@0700 07/23 0700 AC 07/25 PO 0612 Lisinopril 2.5 MG DAILY 07/23 1000 AC 07/25 PO 1012 Magnesium Oxide 400 MG DAILY 07/23 1000 AC 07/25 PO 1012 Morphine Sulfate 2 MG Q3P PRN 07/23 1629 AC 07/25 IV 1805 Omeprazole 40 MG DAILY AC 07/24 0700 AC 07/25 PO 0612 Simethicone 80 MG Q4P PRN 07/22 2345 AC PO Last 24 Hrs of Lab/[place] Results Last 24 Hrs of Labs/Mics: Laboratory Tests 07/25/1615: Anion Gap 10, Estimated GFR 60, BUN/Creatinine Ratio 21.1, Magnesium 1.8, CBC w Diff NO MAN DIFF REQ, RBC 3.99 L, MCV 89.1, MCH 30.4, RDW 13.9, MPV 9.7, Gran % 81.0 H, Lymphocytes % 8.9 L, Monocytes % 9.8 H, Eosinophils % 0, Basophils % 0.3, Absolute Granulocytes 4.0, Absolute Lymphocytes 0.4 L, Absolute Monocytes 0.5, Absolute Eosinophils 0, Absolute Basophils 0, PUBS MCHC 34.1 Assessment/Plan Assessment: Ms [place]ois and 86-year-old lady with past medical history of atrial fibrillation, multiple falls is in today to the emergency department on 2016 complaining of severe abdominal pain, 10 out of 10, mainly periumbilical and central in location, diffuse everywhere associated with nausea and episodes of dry heaving. She was afebrile on presentation, tachycardic to 100, respiratory rate of 18, blood pressure 172/88, she was 96% on room air. Labs were essentially normal, troponin was found elevated to 0.14, which was trended to 0.16 and then came down to 0.15, this was thought to be secondary to demand ischemia. Problem list along with assessment and plan Problem #1 demand ischemia. Patient had an increase in troponin in the setting of cardiomyopathy. Troponins are stable and no new ekg changes. Cardiology on board. Continue carvedilol. Continue atorvastatin 40 mg daily. Problem #2 severe abdominal pain secondary to her she'll obstruction with obturator hernia She had severe abdominal pain on presentation, s/p laparotomy, intestinal resection and mesh placement at obturator on 07/25/16. Per surgery recommendation , patient continues to be NPO. Continue pain management with 2 mg IV morphine every 4 when necessary. 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 Continue home medications of lisinopril, Lasix, carvedilol. Cardiology continues to follow the patient post surgery. Problem #4 history of hypothyroidism. Continue on Synthyroid. Problem #5 history of atrial fibrillation. Eliquis still on hold, will consider restarting possibly tomorrow. Continue rate control with metoprolol Patient is full code DVT prophylaxis with Lovenox 30 mg subcutaneous, can dc once Mild to moderate and severe pain pathway. Problem List: 1. Lower abdominal pain, unspecified Pain Ratin Pain Location: abdomen Pain Goal: Pain 4 or less Pain Plan: morphine and tylenol for pain Tomorrow's Labs & Rationales: none
[2016-07-25 16:33] VITALS: BP 102/52
[2016-07-25 22:34] VITALS: BP 100/56
--- NOTE | 2016-07-26 07:26 | PN- Student ---
See Addendum ARRON REED 07/26/16 0702: Subjective Subjective: Pt reports no events or problems overnight. She continues to complain of diffuse crampy "gas bubble" pain in lower abdomen and like "someone punched her in the stomach." She denies any nausea, vomiting, headache, chest pain, shortness of breath, or pain in her legs. She denies urination or bowel movemens and states she assumes she has passed gas. Objective Objective: Vitals: BP: 100/56 Pulse: 101 Resp 20 SpO2: 92% 2lpm o2 nc Temp: 98.2F Physical exam: General: Resting, well appearing, in no acute disress. Alert and oriented x3. Head: Normocephalic, atraumatic Eyes: PERRL, EOMI Mouth: pink moist mucous membranes Lungs: cleart to auscultation bilaterally, no rhonchi, wheeze or rales. Heart: irregular, no murmurs rubs or gallops. Abdomen: Non-distended, tender at incision site, negative rebound tenderness. Incision covered by dressing-removed, dry and intact. Site non erythematous, no discharge. Extremities: Full range of motion, non-tender calf and popiteal bilaterally, no edema, 2+ pulses. Results Results: Laboratory Tests 07/25/16 0615: Anion Gap 10, Estimated GFR 60, BUN/Creatinine Ratio 21.1, Magnesium 1.8, CBC w Diff NO MAN DIFF REQ, RBC 3.99 L, MCV 89.1, MCH 30.4, RDW 13.9, MPV 9.7, Gran % 81.0 H, Lymphocytes % 8.9 L, Monocytes % 9.8 H, Eosinophils % 0, Basophils % 0.3, Absolute Granulocytes 4.0, Absolute Lymphocytes 0.4 L, Absolute Monocytes 0.5, Absolute Eosinophils 0, Absolute Basophils 0, PUBS MCHC 34.1 07/24/16 0700: Anion Gap 7, Estimated GFR 53 L, BUN/Creatinine Ratio 20.0, Phosphorus 3.2, Magnesium 2.0 07/23/16 1359: Urine Color YEL, Urine Clarity CLEAR, Urine pH 6.0, Ur Specific [place] 1.015, Urine Protein TRACE H, Urine Ketones NEG, Urine Nitrite NEG, Urine Bilirubin NEG, Urine Urobilinogen 0.2, Ur Leukocyte Esterase NEG, Ur Microscopic SEDIMENT EXAMINED, Urine RBC RARE, Urine WBC 3-5 H, Ur Epithelial Cells FEW, Hyaline Casts FEW H, Urine Hemoglobin NEG, Urine Glucose NEG Assessment/Plan Assessment: Pt is a 86 year old female with a history of afib, htn, dyslipidemia, hypothyroidism, osteoporosis post op day#2 for an obturator hernia/sbo reduction with partial small bowel resection. Plan: -continue npo until able to start introduction of softs -continue o2 2lpm via nasal cannula -continue pain managment prn -encourage out of bed ambulation -SC enoxaprin and ALPs for DVT ppx -repeat BMP after induction of softs Will discuss above with PA srugical team. Arron KISER-S2 ISIDRO KISER,MISHEL 07/26/16 0842: Assessment/Plan Plan: agree with above awaiting return of bowel function. keep npo until passing flatus oob/ambulation. PT eval minimize narcotics if able will d/w
[2016-07-26 08:02] VITALS: BP 100/60
--- NOTE | 2016-07-26 09:27 | PN- Att Addend ---
Attending Addendum Attending Brief Note Patient complains of abdominal discomfort General Appearance: Alert, No Acute Distress Skin: Grossly normal HEENT: PEERLA Neck: Supple, No JVD Cardiovascular: Regular Rate, Normal S1, Normal S2, No Murmurs Lungs: Clear to Auscultation, Normal Air Movement Abdomen: Decreased bowel sounds, clean anterior abdominal wound Neurological: Normal Speech, Strength at 5/5 X4 Ext, Cranial Nerves 3-12 NL, Reflexes 2+ Extremities: No Clubbing, No Cyanosis, No Edema Vascular: Normal Pulses Assessment 86-year-old with history of atrial fibrillation on Eliquis and presenting with complaining of abdominal pain. CAT scan suggested obturator hernia with small bowel obstruction. She is now status post day 2 exploratory laparotomy with hernia repair and small bowel resection for possible ischemia. She continues to have minimal bowel sounds. Plan Resume eliquis once cleared by surgery Nothing by mouth and IV hydration IV morphine as needed for pain May continue other home meds DVT prophylaxis Current Medications Sig/Amber Start time Last Medication Dose Route Stop Time Status Admin Acetaminophen 650 MG Q6P PRN 07/23 0015 AC PO Acetaminophen 1,000 MG Q6P PRN 07/23 0015 AC IV Atorvastatin Calcium 40 MG DAILY 07/23 1000 AC 07/25 PO 1011 Carvedilol 12.5 MG BID 07/22 2344 AC 07/25 PO 2142 Dextrose/Sodium 1,000 ML Q20H 07/23 0015 AC 07/25 Chloride IV 1026 Enoxaparin Sodium 30 MG DAILY 07/23 1000 AC 07/25 SC 1012 Furosemide 20 MG QAM 07/23 1000 AC 07/25 PO 1010 Levothyroxine Sodium 0.0375 MG Q48@07/24 0700 AC 07/26 PO 0602 Levothyroxine Sodium 0.075 MG Q48@0707/23 0700 AC 07/25 PO 0612 Lisinopril 2.5 MG DAILY 07/23 1000 AC 07/25 PO 1012 Magnesium Oxide 400 MG DAILY 07/23 1000 AC 07/25 PO 1012 Morphine Sulfate 2 MG Q3P PRN 07/23 1629 AC 07/26 IV 0431 Omeprazole 40 MG DAILY AC 07/24 0700 AC 07/26 PO 0601 Simethicone 80 MG Q4P PRN 07/22 2345 AC PO Vital Signs Date Time Temp Pulse Resp B/P Pulse O2 O2 Flow FiO2 Ox Delivery Rate 07/26 0802 97.7 84 16 100/60 98 Nasal 2.0L Cannula 07/26 0000 92 Nasal 2.0L Cannula 07/25 2234 98.7 101 20 100/56 92 Nasal 2.0L Cannula 07/25 2142 105 100/56 07/25 1633 98.2 99 18 102/52 94 Nasal 2.0L Cannula 07/25 1012 93 100/68 07/25 1010 93 100/68
--- NOTE | 2016-07-26 13:18 | PN- Housestaff ---
Subjective Follow-up For: intestinal bstruction s/p laparotomy atrial fibrillation Subjective: Patient seen and examined. Feels well. Reports of abdominal discomfort. Remains afebrile, will check wbc tomorrow. Patient started on liquid diet today and is restarted on eliquis. Review of Systems Constitutional: Reports: see HPI. Objective Last 24 Hrs of Vital Signs/I&O Vital Signs Date Time Temp Pulse Resp B/P Pulse O2 O2 Flow FiO2 Ox Delivery Rate 07/26 1613 98.1 119 16 104/54 95 Nasal 2.0L Cannula 07/26 1600 Nasal 2.0L Cannula 07/26 1044 84 100/60 07/26 1044 84 100/60 07/26 1000 94 Nasal 2.0L Cannula 07/26 0802 97.7 84 16 100/60 98 Nasal 2.0L Cannula 07/26 0000 92 Nasal 2.0L Cannula 07/25 2234 98.7 101 20 100/56 92 Nasal 2.0L Cannula 07/25 2142 105 100/56 Intake & Output 07/26 1600 07/26 0800 07/26 0000 Intake Total 850 650 700 Output Total 500 400 Balance 350 250 700 Intake, IV 650 600 600 Intake, Oral 200 50 100 Number 0 0 Bowel Movements Output, Urine 500 400 Patient 53.24 kg Weight Physical Exam General Appearance: Alert, Oriented X3, Cooperative Skin: No Rashes HEENT: Atraumatic Neck: Supple Cardiovascular: Regular Rate, Normal S1, Normal S2 Lungs: Normal Air Movement Abdomen: stapes in place, clean wound Neurological: Normal Speech, Normal Tone Extremities: No Edema Current Medications: Current Medications Sig/Amber Start time Last Medication Dose Route Stop Time Status Admin Acetaminophen 650 MG Q6P PRN 07/23 0015 AC PO Acetaminophen 1,000 MG Q6P PRN 07/23 0015 AC IV Apixaban 2.5 MG BID 07/26 1315 AC 07/26 PO 1503 Atorvastatin Calcium 40 MG DAILY 07/23 1000 AC 07/26 PO 1044 Carvedilol 12.5 MG BID 07/22 2344 AC 07/26 PO 1044 Dextrose/Sodium 1,000 ML Q20H 07/23 0015 AC 07/26 Chloride IV 1054 Enoxaparin Sodium 30 MG DAILY 07/23 1000 DC 07/26 SC 1043 Furosemide 20 MG QAM 07/23 1000 DC 02/17 PO 1044 Levothyroxine Sodium 0.0375 MG Q48@0700 07/24 0700 AC 07/26 PO 0602 Levothyroxine Sodium 0.075 MG Q48@0700 07/23 0700 AC 07/25 PO 0612 Lisinopril 2.5 MG DAILY 07/23 1000 DC 07/26 PO 1044 Magnesium Oxide 400 MG DAILY 07/23 1000 AC 07/26 PO 1044 Morphine Sulfate 2 MG Q3P PRN 07/23 1629 AC 07/26 IV 1503 Omeprazole 40 MG DAILY AC 07/24 0700 AC 07/26 PO 0601 Simethicone 80 MG Q4P PRN 07/22 2345 AC PO Assessment/Plan Assessment: Ms Dubois and 86-year-old lady with past medical history of atrial fibrillation, multiple falls is in today to the emergency department on 2016 complaining of severe abdominal pain, 10 out of 10, mainly periumbilical and central in location, diffuse everywhere associated with nausea and episodes of dry heaving. She was afebrile on presentation, tachycardic to 100, respiratory rate of 18, blood pressure 172/88, she was 96% on room air. Labs were essentially normal, troponin was found elevated to 0.14, which was trended to 0.16 and then came down to 0.15, this was thought to be secondary to demand ischemia. Problem list along with assessment and plan Problem #1 demand ischemia. Patient had an increase in troponin in the setting of cardiomyopathy. Troponins are stable and no new ekg changes. Cardiology on board. Continue carvedilol. Continue atorvastatin 40 mg daily. Lisinopril and lasix held on 07/26/16 Problem #2 severe abdominal pain secondary to her she'll obstruction with obturator hernia She had severe abdominal pain on presentation, s/p laparotomy, intestinal resection and mesh placement at obturator on 07/25/16. Per surgery recommendation , patient restarted on clear liquid diet today, can advance to regular in am if tolerates well. Continue pain management with 2 mg IV morphine every 4 when necessary. 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 Continue home medications carvedilol. Lasix and lisinopril held on 07/26/16 Cardiology continues to follow the patient post surgery. Problem #4 history of hypothyroidism. Continue on Synthyroid. Problem #5 history of atrial fibrillation. Eliquis restarted on 07/26/16, BID, will continue to monitor Continue rate control with metoprolol Patient is full code DVT prophylaxis eliquis Mild to moderate and severe pain pathway. Problem List: 1. Atrial fibrillation 2. Congestive heart failure 3. Small bowel obstruction Pain Ratin Pain Location: abdomen Pain Goal: Pain 4 or less Pain Plan: tylenol prn for pain morphine for severe pain Tomorrow's Labs & Rationales: cbc
--- NOTE | 2016-07-26 14:31 | PN- Cardiology ---
Subjective Subjective: Abdominal pain improving. No chest pain or palpitations. Objective Vital Signs and I&Os Vital Signs Date Time Temp Pulse Resp B/P Pulse O2 O2 Flow FiO2 Ox Delivery Rate 07/26 1044 84 100/60 07/26 1044 84 100/60 07/26 0802 97.7 84 16 100/60 98 Nasal 2.0L Cannula 07/26 0000 92 Nasal 2.0L Cannula 07/25 2234 98.7 101 20 100/56 92 Nasal 2.0L Cannula 07/25 2142 105 100/56 07/25 1633 98.2 99 18 102/52 94 Nasal 2.0L Cannula Intake & Output 07/26 1600 07/26 0800 07/26 0000 07/25 1600 07/25 0800 07/25 0000 Intake Total 650 700 940 650 350 Output Total 400 650 350 Balance 250 700 290 300 350 Intake, IV 600 600 700 600 300 Intake, Oral 50 100 240 50 50 Number 0 0 0 Bowel Movements Output, Urine 400 650 350 Patient 117 lb 110 lb Weight Physical Exam: General: no apparent distress. Alert. Eyes: No obvious scleral icterus. HEENT: No jugular venous distention or abnormal jugular venous pulsations. Cardiovascular: Normal intensity S1/S2. Irregular. One out of 6 systolic murmur. Respiratory: No rales or rhonchi Abdomen: Mild tenderness Musculoskeletal: No clubbing or cyanosis noted, no edema Skin: Warm Neurologic: No gross focal deficits noted. Current Medications: Current Medications Sig/Amber Start time Last Medication Dose Route Stop Time Status Admin Acetaminophen 650 MG Q6P PRN 07/23 0015 AC PO Acetaminophen 1,000 MG Q6P PRN 07/23 0015 AC IV Apixaban 2.5 MG BID 07/26 1315 AC PO Atorvastatin Calcium 40 MG DAILY 07/23 1000 AC 07/26 PO 1044 Carvedilol 12.5 MG BID 07/22 2344 AC 07/26 PO 1044 Dextrose/Sodium 1,000 ML Q20H 07/23 0015 AC 07/26 Chloride IV 1054 Enoxaparin Sodium 30 MG DAILY 07/23 1000 DC 07/26 SC 1043 Furosemide 20 MG QAM 07/23 1000 AC 07/26 PO 1044 Levothyroxine Sodium 0.0375 MG Q48@0700 07/24 0700 AC 07/26 PO 0602 Levothyroxine Sodium 0.075 MG Q48@0700 07/23 0700 AC 07/25 PO 0612 Lisinopril 2.5 MG DAILY 07/23 1000 AC 07/26 PO 1044 Magnesium Oxide 400 MG DAILY 07/23 1000 AC 07/26 PO 1044 Morphine Sulfate 2 MG Q3P PRN 07/23 1629 AC 07/26 IV 1043 Omeprazole 40 MG DAILY AC 07/24 0700 AC 07/26 PO 0601 Simethicone 80 MG Q4P PRN 07/22 2345 AC PO Results Last 48 Hrs of Labs/Mics: Laboratory Tests 07/25/1615: Anion Gap 10, Estimated GFR 60, BUN/Creatinine Ratio 21.1, Magnesium 1.8, CBC w Diff NO MAN DIFF REQ, RBC 3.99 L, MCV 89.1, MCH 30.4, RDW 13.9, MPV 9.7, Gran % 81.0 H, Lymphocytes % 8.9 L, Monocytes % 9.8 H, Eosinophils % 0, Basophils % 0.3, Absolute Granulocytes 4.0, Absolute Lymphocytes 0.4 L, Absolute Monocytes 0.5, Absolute Eosinophils 0, Absolute Basophils 0, PUBS MCHC 34.1 Recent Imaging Studies: Telemetry tracings personally reviewed, afib with some tachycardia this AM Assessment/Plan Assessment/Plan 1. Persistent atrial fibrillation on outpatient Eliquis 2. Sick sinus syndrome status post pacemaker last interrogation was in March demonstrated normal function 3. History of Takutsubo cardiomyopathy resolved most recent ejection fraction is 45-50% 4. Moderate mitral regurgitation and mild aortic stenosis with moderate to severe tricuspid regurgitation 5. Hypertension 6. Abdominal pain with obturator hernia causing small bowel obstruction now status post hernia repair and partial small bowel resection 7. Chronic diastolic heart failure stable 8. Demand ischemia Abdominal discomfort is improving. Some tachycardia this AM, continue to monitor for now on the current Coreg. I would suggest holding her Lasix and Lisinopril for now until she has better PO intake and BP increases. Plan is to resume Eliquis. She remains euvolemic on exam. Qasim Mueller MD [facility] Continue telemetry? Yes
[2016-07-26 16:13] VITALS: BP 104/54
[2016-07-27 00:58] VITALS: BP 98/60
[2016-07-27 07:57] VITALS: BP 110/78
--- NOTE | 2016-07-27 08:49 | PN- General Surgery ---
See Addendum Subjective Subjective: POD #3 s/p reduction/repair of incarcerated obturator hernia with SBR. No flatus or BM yet, although no nausea or vomiting. Tolerating ice chips/sips of clear liquids. Not ambulating much. Objective Vital Signs and I&Os Vital Signs Date Time Temp Pulse Resp B/P Pulse O2 O2 Flow FiO2 Ox Delivery Rate 07/27 0757 97.7 129 18 110/78 99 07/27 0633 145 106/78 07/27 0250 154 07/27 0058 97.8 154 16 98/60 98 Nasal 2.0L Cannula 07/27 0000 Nasal 2.0L Cannula 07/26 2150 125 100/48 07/26 1613 98.1 119 16 104/54 95 Nasal 2.0L Cannula 07/26 1600 Nasal 2.0L Cannula 07/26 1044 84 100/60 07/26 1044 84 100/60 07/26 1000 94 Nasal 2.0L Cannula Intake & Output 07/27 1600 07/27 0800 07/27 0000 07/26 1600 07/26 0800 07/26 0000 Intake Total 525 225 850 650 700 Output Total 300 500 400 Balance 225 225 350 250 700 Intake, IV 525 225 650 600 600 Intake, Oral 200 50 100 Number 0 0 Bowel Movements Output, Urine 300 500 400 Patient 117 lb Weight Physical Exam: Gen: AAOx3 in NAD Cor: S1+S2+ Lungs: CTA zane Abd: soft, tender around incision, incision intact with erika, no drainage or erythema noted. Non distended, +BS x3. Ext: no edema or calf tenderness to zane lower extremities. Current Medications: Current Medications Sig/Amber Start time Last Medication Dose Route Stop Time Status Admin Acetaminophen 650 MG Q6P PRN 07/23 0015 AC PO Acetaminophen 1,000 MG Q6P PRN 07/23 0015 AC IV Apixaban 2.5 MG BID 07/26 1315 AC 07/26 PO 2150 Atorvastatin Calcium 40 MG DAILY 07/23 1000 AC 07/26 PO 1044 Carvedilol 12.5 MG BID 07/22 2344 AC 07/26 PO 2150 Dextrose/Sodium 1,000 ML Q20H 07/23 0015 AC 07/27 Chloride IV 0007 Diltiazem HCl 2.5 MG ONCE ONE 07/27 0615 DC 07/27 IV 07/27 0616 0633 Diltiazem HCl 2.5 MG ONCE ONE 07/27 0200 DC 07/27 IV 07/27 0201 0250 Enoxaparin Sodium 30 MG DAILY 07/23 1000 DC 07/26 SC 1043 Furosemide 20 MG QAM 07/23 1000 DC 07/26 PO 1044 Levothyroxine Sodium 0.0375 MG Q48@0700 07/24 0700 AC 07/26 PO 0602 Levothyroxine Sodium 0.075 MG Q48@0700 07/23 0700 AC 07/27 PO 0609 Lisinopril 2.5 MG DAILY 07/23 1000 DC 07/26 PO 1044 Magnesium Oxide 400 MG DAILY 07/23 1000 AC 07/26 PO 1044 Morphine Sulfate 2 MG Q3P PRN 07/23 1629 AC 07/27 IV 0610 Omeprazole 40 MG DAILY AC 07/24 0700 AC 07/27 PO 0609 Simethicone 80 MG Q4P PRN 07/22 2345 AC PO Results Last 48 Hours of Labs: Laboratory Tests 07/27 0700 Chemistry Troponin I (< 0.11 ng/ml) 0.04 Assessment/Plan Assessment/Plan A: POD #3 s/p repair of incarcerated obturator hernia with small bowel resection ; AVSS. Post operative ileus. Plan: Await increase in bowel function. Continue sips of clears/ice chips for now. OOB and ambulate TID, also with PT. Please wean oxygen off if feasible. STR vs 24 hour home care per PT evaluation yesterday.
--- NOTE | 2016-07-27 09:38 | PN- Housestaff ---
Subjective Follow-up For: Intestinal bstruction S/p laparotomy Atrial fibrillation Subjective: Patient seen and examined. Offers no complaints. Dominant discomfort has improved. Denies headache, nausea, vomiting, chest pain, shortness of breath, urinary symptoms. Vital signs remained stable. No overnight events reported. Was started on Eliquis yesterday. On clear liquid diet. Review of Systems Constitutional: Denies: see HPI. Objective Last 24 Hrs of Vital Signs/I&O Vital Signs Date Time Temp Pulse Resp B/P Pulse O2 O2 Flow FiO2 Ox Delivery Rate 07/27 0842 97.7 129 18 116/78 07/27 0800 Nasal 2.0L Cannula 07/27 0757 97.7 129 18 110/78 99 07/27 0633 145 106/78 07/27 0250 154 07/27 0058 97.8 154 16 98/60 98 Nasal 2.0L Cannula 07/27 0000 Nasal 2.0L Cannula 07/26 2150 125 100/48 07/26 1613 98.1 119 16 104/54 95 Nasal 2.0L Cannula 07/26 1600 Nasal 2.0L Cannula Intake & Output 07/27 1600 07/27 0800 07/27 0000 Intake Total 525 225 Output Total 300 Balance 225 225 Intake, IV 525 225 Output, Urine 300 Physical Exam General Appearance: Alert, Oriented X3, Cooperative Skin: No Rashes, No Breakdown, No Significant Lesion HEENT: Atraumatic, PERRLA, EOMI, Mucous Membr. moist/pink Neck: Supple, No JVD, No thryomegaly, +2 Carotid Pulse wo Bruit, No LAD Cardiovascular: Regular Rate, Normal S1, Normal S2, No Murmurs Lungs: Clear to Auscultation, Normal Air Movement Neurological: Normal Speech, Strength at 5/5 X4 Ext, Normal Tone, Sensation Intact, Cranial Nerves 3-12 NL, Reflexes 2+ Extremities: No Clubbing, No Cyanosis, No Edema, Normal Pulses, No Tenderness/ Swelling Vascular: Pulses Symmetrical Current Medications: Current Medications Sig/Amber Start time Last Medication Dose Route Stop Time Status Admin Acetaminophen 650 MG Q6P PRN 07/23 0015 AC PO Acetaminophen 1,000 MG Q6P PRN 07/23 0015 AC IV Apixaban 2.5 MG BID 07/26 1315 AC 07/27 PO 0841 Atorvastatin Calcium 40 MG DAILY 07/23 1000 AC 07/27 PO 0841 Carvedilol 12.5 MG BID 07/22 2344 AC 07/27 PO 0842 Dextrose/Sodium 1,000 ML Q20H 07/23 0015 AC 07/27 Chloride IV 0007 Diltiazem HCl 2.5 MG ONCE ONE 07/27 0615 DC 07/27 IV 07/27 0616 0633 Diltiazem HCl 2.5 MG ONCE ONE 07/27 0200 DC 07/27 IV 07/27 0201 0250 Docusate Sodium 100 MG TID 07/27 1000 AC 07/27 PO 1042 Enoxaparin Sodium 30 MG DAILY 07/23 1000 DC 07/26 SC 1043 Furosemide 20 MG QAM 07/23 1000 DC 07/26 PO 1044 Levothyroxine Sodium 0.0375 MG Q48@0700 07/24 0700 AC 07/26 PO 0602 Levothyroxine Sodium 0.075 MG Q48@0700 07/23 0700 AC 07/27 PO 0609 Lisinopril 2.5 MG DAILY 07/23 1000 DC 07/26 PO 1044 Magnesium Oxide 400 MG DAILY 07/23 1000 AC 07/27 PO 0841 Morphine Sulfate 2 MG Q3P PRN 07/23 1629 AC 07/27 IV 0852 Omeprazole 40 MG DAILY AC 07/24 0700 AC 07/27 PO 0609 Simethicone 80 MG Q4P PRN 07/22 2345 AC PO Last 24 Hrs of Lab/Pavan Results Last 24 Hrs of Labs/Mics: Laboratory Tests 07/27/16 0700: Troponin I 0.04 Assessment/Plan Assessment: This is a 86-year-old lady with past medical history of atrial fibrillation, multiple falls presented with severe abdominal pain. She was afebrile on presentation, tachycardic to 100, respiratory rate of 18, blood pressure 172/88, she was 96% on room air. Labs were essentially normal, troponin was found elevated to 0.14, which was trended to 0.16 and then came down to 0.15, this was thought to be secondary to demand ischemia. Problem list/plan #1 demand ischemia. * Patient had an increase in troponin in the setting of cardiomyopathy. Troponins are stable and no new ekg changes. * Cardiology following. * Continue carvedilol, atorvastatin . * Lisinopril and lasix held on 07/26/16 #2 severe abdominal pain secondary obturator hernia with small bowel obstruction * Improved * She had severe abdominal pain on presentation, s/p laparotomy, intestinal resection and mesh placement at obturator on 07/25/16. * Per surgery recommendation, patient restarted on clear liquid diet today, can advance to regular in am if tolerates well. * Continue pain management with 2 mg IV morphine every 4 when necessary. 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 * Continue home medications carvedilol. * Lasix and lisinopril held on 07/26/16 * Cardiology continues to follow the patient post surgery. #4 history of hypothyroidism. * Continue on Synthyroid. #5 history of atrial fibrillation. * Eliquis restarted on 07/26/16, BID, will continue to monitor * Continue rate control with metoprolol Patient is full code DVT prophylaxis eliquis Mild to moderate and severe pain pathway. Problem List: 1. Small bowel obstruction 2. Abdominal pain Pain Ratin Pain Location: Abdomen Pain Goal: Remain pain free Pain Plan: Tylenol when necessary for pain Morphine for moderate severe pain Tomorrow's Labs & Rationales: BEP to monitor electrolytes CBC to monitor H&H
--- NOTE | 2016-07-27 10:43 | PN- Pulmonary ---
Subjective HPI/Critical Care Issues: Sleeping when I saw her Patient is status post surgery for incarcerated obturator hernia no flat as yet no bowel movement he had no nausea vomiting tolerating ice chips Afebrile Vital signs reviewed patient is tachycardic O2 sat 99% on room air Significant data reviewed no imaging recently Blood work reviewed no blood work done in the past [address] showed a large inguinal hernia Objective Current Medications: Current Medications Sig/Amber Start time Last Medication Dose Route Stop Time Status Admin Acetaminophen 650 MG Q6P PRN 07/23 0015 AC PO Acetaminophen 1,000 MG Q6P PRN 07/23 0015 AC IV Apixaban 2.5 MG BID 07/26 1315 AC 07/27 PO 0841 Atorvastatin Calcium 40 MG DAILY 07/23 1000 AC 07/27 PO 0841 Carvedilol 12.5 MG BID 07/22 2344 AC 07/27 PO 0842 Dextrose/Sodium 1,000 ML Q20H 07/23 0015 AC 07/27 Chloride IV 0007 Diltiazem HCl 2.5 MG ONCE ONE 07/27 0615 DC 07/27 IV 07/27 0616 0633 Diltiazem HCl 2.5 MG ONCE ONE 07/27 0200 DC 07/27 IV 07/27 0201 0250 Docusate Sodium 100 MG TID 07/27 1000 AC PO Enoxaparin Sodium 30 MG DAILY 07/23 1000 DC 07/26 SC 1043 Furosemide 20 MG QAM 07/23 1000 DC 07/26 PO 1044 Levothyroxine Sodium 0.0375 MG Q48@0700 07/24 0700 AC 07/26 PO 0602 Levothyroxine Sodium 0.075 MG Q48@0700 07/23 0700 AC 07/27 PO 0609 Lisinopril 2.5 MG DAILY 07/23 1000 DC 07/26 PO 1044 Magnesium Oxide 400 MG DAILY 07/23 1000 AC 07/27 PO 0841 Morphine Sulfate 2 MG Q3P PRN 07/23 1629 AC 07/27 IV 0852 Omeprazole 40 MG DAILY AC 07/24 0700 AC 07/27 PO 0609 Simethicone 80 MG Q4P PRN 07/22 2345 AC PO Vital Signs & I&O Last 24 Hrs of Vitals and I&O: Vital Signs Date Time Temp Pulse Resp B/P Pulse O2 O2 Flow FiO2 Ox Delivery Rate 07/27 0842 97.7 129 18 116/78 07/27 0800 Nasal 2.0L Cannula 07/27 0757 97.7 129 18 110/78 99 02 0633 145 106/78 07/27 0250 154 07/27 0058 97.8 154 16 98/60 98 Nasal 2.0L Cannula 07/27 0000 Nasal 2.0L Cannula 07/26 2150 125 100/48 07/26 1613 98.1 119 16 104/54 95 Nasal 2.0L Cannula 07/26 1600 Nasal 2.0L Cannula 07/26 1044 84 100/60 07/26 1044 84 100/60 Intake & Output 07/27 1600 07/27 0800 07/27 0000 Intake Total 525 225 Output Total 300 Balance 225 225 Intake, IV 525 225 Output, Urine 300 Impression/Plan Impression/Plan Impression/Plan: General: no apparent distress. sleeping Eyes: No obvious scleral icterus. HEENT: No jugular venous distention or abnormal jugular venous pulsations. Cardiovascular: Normal intensity S1/S2. Irregular. One out of 6 systolic murmur. Respiratory: No rales or rhonchi Abdomen: Mild tenderness Musculoskeletal: No clubbing or cyanosis noted, no edema Skin: Warm Neurologic: No gross focal deficits noted. IMPRESSION This is a lady with persistent atrial fibrillation on eloquis, sick sinus syndrome status post pacemaker, previous stress-induced cardiomyopathy with EF of 45-50%, mitral regurgitation with mild mitral aortic stenosis and moderate tricuspid regurg, hypertension, recent surgery for obturator hernia causing small bowel obstruction no status post surgery with partial bowel resection, chronic diastolic heart failure and demand ischemia now has Continue to have sinus tachycardia Abdominal discomfort which is improving Demand ischemia Previous stress-induced cardiomyopathy with low ejection fraction high risk for heart failure On appropriate anticoagulation for atrial fibrillation Hypothyroidism on levothyroxine RECOMMENDATION Recheck labs today and replace electrolytes appropriately including potassium, magnesium Check TSH and free T4 and if patient is clinically hypothyroid then we will have to reduce her levothyroxine as she is persistently tachycardic Check hemoglobin and hematocrit If the blood pressure allows increase the Coreg to 25 mg twice a day Watch for any heart failure Minimize sedation Surgery is following and the per their recommendation Start Ice Chips, Physical Therapy.
--- NOTE | 2016-07-27 12:44 | PN- Cardiology ---
Subjective Subjective: The patient is not having any complaints at this time. She is having a little abdominal soreness and tolerating clear liquids. She has no chest pain or shortness of breath. She has been noted to be somewhat tachycardic on the monitor. She was given a couple of doses of IV Cardizem earlier today. Objective Vital Signs and I&Os Vital Signs Date Time Temp Pulse Resp B/P Pulse O2 O2 Flow FiO2 Ox Delivery Rate 07/27 0842 97.7 129 18 116/78 07/27 0800 Nasal 2.0L Cannula 07/27 0757 97.7 129 18 110/78 99 07/27 0633 145 106/78 07/27 0250 154 07/27 0058 97.8 154 16 98/60 98 Nasal 2.0L Cannula 07/27 0000 Nasal 2.0L Cannula 07/26 2150 125 100/48 07/26 1613 98.1 119 16 104/54 95 Nasal 2.0L Cannula 07/26 1600 Nasal 2.0L Cannula Intake & Output 07/27 1600 07/27 0800 07/27 0000 07/26 1600 07/26 0800 07/26 0000 Intake Total 525 225 850 650 700 Output Total 300 500 400 Balance 225 225 350 250 700 Intake, IV 525 225 650 600 600 Intake, Oral 200 50 100 Number 0 0 Bowel Movements Output, Urine 300 500 400 Patient 117 lb Weight Physical Exam: She is a frail elderly female in no acute distress HEENT exam is normal Chest is clear Heart Reveals irregular rhythm at a moderate rate Extremities reveal no edema Current Medications: Current Medications Sig/Amber Start time Last Medication Dose Route Stop Time Status Admin Acetaminophen 650 MG Q6P PRN 07/23 0015 AC PO Acetaminophen 1,000 MG Q6P PRN 07/23 0015 AC IV Apixaban 2.5 MG BID 07/26 1315 AC 07/27 PO 0841 Atorvastatin Calcium 40 MG DAILY 07/23 1000 AC 07/27 PO 0841 Carvedilol 12.5 MG BID 07/22 2344 AC 07/27 PO 0842 Dextrose/Sodium 1,000 ML Q20H 07/23 0015 AC 07/27 Chloride IV 0007 Diltiazem HCl 2.5 MG ONCE ONE 07/27 0615 DC 07/27 IV 07/27 0616 0633 Diltiazem HCl 2.5 MG ONCE ONE 07/27 0200 DC 07/27 IV 07/27 0201 0250 Docusate Sodium 100 MG TID 07/27 1000 AC 07/27 PO 1042 Enoxaparin Sodium 30 MG DAILY 07/23 1000 DC 07/26 SC 1043 Furosemide 20 MG QAM 07/23 1000 DC 07/26 PO 1044 Ketorolac 15 MG Q6-PRN PRN 07/27 1200 AC Tromethamine IV Levothyroxine Sodium 0.0375 MG Q48@0700 07/24 0700 AC 07/26 PO 0602 Levothyroxine Sodium 0.075 MG Q48@0700 07/23 0700 AC 07/27 PO 0609 Lisinopril 2.5 MG DAILY 07/23 1000 DC 07/26 PO 1044 Magnesium Oxide 400 MG DAILY 07/23 1000 AC 07/27 PO 0841 Metoclopramide HCl 10 MG AC 07/27 1200 AC PO Morphine Sulfate 2 MG Q3P PRN 07/23 1629 DC 07/27 IV 0852 Omeprazole 40 MG DAILY AC 07/24 0700 AC 07/27 PO 0609 Simethicone 80 MG Q4P PRN 07/22 2345 AC PO Results Last 48 Hrs of Labs/Mics: Laboratory Tests 07/27/16 0700: Troponin I 0.04 Assessment/Plan Assessment/Plan The patient has become somewhat more tachycardic. She remains in chronic atrial fibrillation. She is on Eliquis and a one half dose of carvedilol. I recommend increasing her carvedilol to 25 mg twice daily. If her rate is not controlled on this regimen then the addition of oral diltiazem would be indicated. Continue telemetry? Yes
[2016-07-27 13:07] LABS: ABSOLUTE BASOPHIL COUNT 0 /CUMM (0.0-0.2); ABSOLUTE EOSINOPHIL COUNT 0.1 /CUMM (0.0-0.7); ABSOLUTE LYMPH COUNT 0.9 /CUMM (1.2-3.4); ABSOLUTE MONOCYTE COUNT 0.5 /CUMM (0.10-0.60); BASOPHIL % 0.3 % (0.0-2.0); RBC DISTRIBUTION WIDTH 13.9 % (11.5-14.5)
[2016-07-27 13:11] LABS: ABSOLUTE GRANULOCYTE CT 3.3 /CUMM (1.4-6.5); EOSINOPHIL % 2.2 % (0-5); GRANULOCYTE % 68.9 % (42.2-75.2); MEAN CORPUSCULAR HGB 29.9 PG (27.0-31.0); MEAN CORPUSCULAR HGB CONC 33.6 G/DL (33.0-37.0); MEAN CORPUSCULAR VOLUME 88.8 FL (81.0-99.0); MEAN PLATELET VOLUME 9.4 FL (7.4-10.4); PLATELET COUNT 145 /CUMM (130-400); RED BLOOD CELL CT 3.29 /CUMM (4.20-5.40); WHITE BLOOD CELL COUNT 4.8 /CUMM (4.8-10.8)
[2016-07-27 13:12] LABS: HEMATOCRIT 29.2 % (37-47)
[2016-07-27 16:17] VITALS: BP 118/82
[2016-07-28 00:10] VITALS: BP 112/00
[2016-07-28 07:58] LABS: ABSOLUTE BASOPHIL COUNT 0 /CUMM (0.0-0.2); ABSOLUTE EOSINOPHIL COUNT 0.1 /CUMM (0.0-0.7); ABSOLUTE GRANULOCYTE CT 3.1 /CUMM (1.4-6.5); ABSOLUTE LYMPH COUNT 0.6 /CUMM (1.2-3.4); ABSOLUTE MONOCYTE COUNT 0.6 /CUMM (0.10-0.60); BASOPHIL % 0.3 % (0.0-2.0); EOSINOPHIL % 2.5 % (0-5); GRANULOCYTE % 71.3 % (42.2-75.2); MEAN CORPUSCULAR HGB 29.9 PG (27.0-31.0); MEAN CORPUSCULAR HGB CONC 33.8 G/DL (33.0-37.0); MEAN CORPUSCULAR VOLUME 88.5 FL (81.0-99.0); MEAN PLATELET VOLUME 9.5 FL (7.4-10.4); PLATELET COUNT 147 /CUMM (130-400); RBC DISTRIBUTION WIDTH 13.7 % (11.5-14.5); RED BLOOD CELL CT 3.39 /CUMM (4.20-5.40); WHITE BLOOD CELL COUNT 4.3 /CUMM (4.8-10.8)
[2016-07-28 08:31] VITALS: BP 127/84
--- NOTE | 2016-07-28 08:40 | PN- General Surgery ---
See Addendum Subjective Subjective: Patient feels better following bm x3, denies nausea at the time, denies vomitting. Still notes some octavio-incisional discomfort. Denies chest pain, shortness of breath and difficulty breathing. Objective Vital Signs and I&Os Vital Signs Date Time Temp Pulse Resp B/P Pulse O2 O2 Flow FiO2 Ox Delivery Rate 07/28 0831 98.1 93 17 127/84 95 Nasal 2.0L Cannula 07/28 0010 97.5 99 18 112/00 95 Nasal 2.0L Cannula 07/28 0000 99 Nasal 2.0L Cannula 07/27 2138 112 132/70 07/27 1617 97.5 111 20 118/82 97 Nasal Cannula 07/27 1324 97.7 129 18 116/78 07/27 0842 97.7 129 18 11678 Intake & Output 07/28 1600 07/28 0800 07/28 0000 07/27 1600 07/27 0800 07/27 0000 Intake Total 073 747 2030 525 225 Output Total 350 325 500 300 Balance 20 155 1000 225 225 Intake, IV 10 700 525 225 Intake, Oral 360 480 800 Number 1 2 Bowel Movements Output, Urine 350 325 500 300 Physical Exam: General: Alert and oriented x3, no acute distress Cardiac: RRR s1s2 Pulm: CTA bilaterally Abdomen: Mild octavio-incisional tenderness, softly distended, no rebound, no guarding Extremites: Moves all extremities, distal sensations intact. Bilateral calves soft and non-tender Assessment/Plan Assessment/Plan This is a 86 year old female, POD 4, s/p repair obturator hernia with small bowel resection -Low residue diet -Continue current pain regimen -OOB as desired -Plan for str per pt -Will d/w Dr. Barba
--- NOTE | 2016-07-28 08:58 | PN- Housestaff ---
Subjective Follow-up For: Laparotomy with small intestinal resection Subjective: Patient seen and examined. Reports that abdominal pain is better. She is eating well. Had one bowel movement yesterday, which was loose. No new complains otherwise. Review of Systems Constitutional: Reports: see HPI. Objective Last 24 Hrs of Vital Signs/I&O Vital Signs Date Time Temp Pulse Resp B/P Pulse O2 O2 Flow FiO2 Ox Delivery Rate 07/28 0939 93 127/84 07/28 0831 98.1 93 17 127/84 95 Nasal 2.0L Cannula 07/28 0010 97.5 99 18 112/00 95 Nasal 2.0L Cannula 07/28 0000 99 Nasal 2.0L Cannula 07/27 2138 112 132/70 07/27 1617 97.5 111 20 118/82 97 Nasal Cannula 07/27 1324 97.7 129 18 116/78 Intake & Output 07/28 1600 07/28 0800 07/28 0000 Intake Total 370 480 Output Total 350 325 Balance 20 155 Intake, IV 10 Intake, Oral 360 480 Number 1 2 Bowel Movements Output, Urine 350 325 Physical Exam General Appearance: Alert, Oriented X3, Cooperative Skin: No Rashes HEENT: Atraumatic Neck: Supple Cardiovascular: Normal S1, Normal S2 Lungs: Normal Air Movement Abdomen: Soft, No Tenderness, abdominal eirka in place Neurological: Normal Tone Extremities: No Edema Current Medications: Current Medications Sig/Amber Start time Last Medication Dose Route Stop Time Status Admin Acetaminophen 2,000 MG .STK-MED ONE 07/27 1604 DC IV 07/27 1605 Acetaminophen 650 MG Q6P PRN 07/23 0015 AC PO Acetaminophen 1,000 MG Q6P PRN 07/23 0015 AC 07/27 IV 1607 Apixaban 2.5 MG BID 07/26 1315 AC 07/28 PO 0939 Atorvastatin Calcium 40 MG DAILY 07/23 1000 AC 07/28 PO 0939 Carvedilol 25 MG BID 07/27 2200 AC 07/28 PO 0939 Carvedilol 12.5 MG ONCE ONE 07/27 1300 DC 07/27 PO 07/27 1301 1324 Carvedilol 25 MG BID 07/27 1242 CAN PO Carvedilol 12.5 MG BID 07/22 2344 DC 07/27 PO 0842 Dextrose/Sodium 1,000 ML Q20H 07/23 0015 DC 07/27 Chloride IV 0007 Docusate Sodium 100 MG TID 07/27 1000 DC 07/27 PO 1533 Ketorolac 15 MG Q6-PRN PRN 07/27 1200 AC 07/28 Tromethamine IV 0605 Levothyroxine Sodium 0.0375 MG Q48@0700 07/24 0700 DC 07/26 PO 0602 Levothyroxine Sodium 0.075 MG Q48@0700 07/23 0700 AC 07/27 PO 0609 Magnesium Oxide 400 MG DAILY 07/23 1000 AC 07/28 PO 0939 Metoclopramide HCl 10 MG AC 07/27 1200 DC 07/27 PO 1533 Morphine Sulfate 2 MG Q3P PRN 07/23 1629 DC 07/27 IV 0852 Omeprazole 40 MG DAILY AC 07/24 0700 AC 07/28 PO 0605 Potassium Chloride 60 MEQ ONCE ONE 07/27 1500 DC 07/27 PO 07/27 1501 1533 Simethicone 80 MG Q4P PRN 07/22 2345 AC PO Last 24 Hrs of Lab/Pavan Results Last 24 Hrs of Labs/Mics: Laboratory Tests 07/28/16 0645: Anion Gap 5, Estimated GFR > 60, BUN/Creatinine Ratio 17.5, Magnesium 2.1, CBC w Diff NO MAN DIFF REQ, RBC 3.39 L, MCV 88.5, MCH 29.9, RDW 13.7, MPV 9.5, Gran % 71.3, Lymphocytes % 12.8 L, Monocytes % 13.1 H, Eosinophils % 2.5, Basophils % 0.3, Absolute Granulocytes 3.1, Absolute Lymphocytes 0.6 L, Absolute Monocytes 0.6, Absolute Eosinophils 0.1, Absolute Basophils 0, PUBS MCHC 33.8 07/27/16 1238: Anion Gap 7, Estimated GFR > 60, BUN/Creatinine Ratio 13.8, Magnesium 1.9, TSH 1.990, Free T4 2.00 H, CBC w Diff NO MAN DIFF REQ, RBC 3.29 L, MCV 88.8, MCH 29.9, RDW 13.9, MPV 9.4, Gran % 68.9, Lymphocytes % 18.2 L, Monocytes % 10.4 H , Eosinophils % 2.2, Basophils % 0.3, Absolute Granulocytes 3.3, Absolute Lymphocytes 0.9 L, Absolute Monocytes 0.5, Absolute Eosinophils 0.1, Absolute Basophils 0, PUBS MCHC 33.6 Assessment/Plan Assessment: This is a 86-year-old lady with past medical history of atrial fibrillation, multiple falls presented with severe abdominal pain. She was afebrile on presentation, tachycardic to 100, respiratory rate of 18, blood pressure 172/88, she was 96% on room air. Labs were essentially normal, troponin was found elevated to 0.14, which was trended to 0.16 and then came down to 0.15, this was thought to be secondary to demand ischemia. Problem list/plan #1 demand ischemia. * Patient had an increase in troponin in the setting of cardiomyopathy. Troponins are stable and no new ekg changes. * Cardiology following. * Carvidilol dose increased on 07/27/16 to 25 mg BID, atorvastatin continued on home dose. * Lisinopril and lasix held on 07/26/16 #2 severe abdominal pain secondary obturator hernia with small bowel obstruction * She had severe abdominal pain on presentation, s/p laparotomy, intestinal resection and mesh placement at obturator on 07/25/16. * Per surgery recommendation, patient restarted initially on clear liq and to regular diet today. Patient is tolerating the diet well. * Continue pain management with 2 mg IV morphine every 4 when necessary. 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 * Lasix and lisinopril held on 07/26/16, will check with cardiology regarding restarting it. * Cardiology continues to follow the patient post surgery. #4 history of hypothyroidism. * Patient had elevated T4 yesterday, endocrinology consult service was called. Will follow their recommendations. #5 history of atrial fibrillation. * Eliquis restarted on 07/26/16, BID, will continue to monitor * Continue rate control with metoprolol and carvedilol Patient is full code DVT prophylaxis eliquis Mild to moderate and severe pain pathway. Problem List: 1. Atrial fibrillation 2. Small bowel obstruction Pain Ratin Pain Location: abdomen Pain Goal: Pain 4 or less Pain Plan: tylenol prn for pain Tomorrow's Labs & Rationales: cbc bep
--- NOTE | 2016-07-28 10:35 | Cons- Endocrinology ---
General Information and HPI Consulting Request Date of Consult: 07/28/16 Requested By: medical team Reason for Consult: Hypothyroidism and atrial fibrillation Source of Information: patient, old records Exam Limitations: poor historian History of Present Illness: This 86-year-old woman presented with severe abdominal pain. She was found to have an obturator hernia and underwent repair of the hernia and a partial small bowel resection. The patient has a long-standing history of atrial fibrillation and hypothyroidism. She states that her thyroid medication was recently reduced to 75 alternating with 37.5 g every other day. There is some concern because her atrial fibrillation has been associated with a more rapid ventricular rate which is difficult to control. The patient's most recent studies show a free T4 2.0 and a TSH of 1.9. Allergies/Medications Allergies: Coded Allergies: heparin (Intermediate, LEAKED INTO TISSUE AND CAUSED EXTREME PAIN 08/03/16) Per antibiotic order sheet. -- Ruben 12/03/12 clarithromycin (UNKNOWN PER PT DAUGHTER BELIEVES IT WAS EMYCIN - GI UPSET ) erythromycin base (GI UPSET 08/03/16) gabapentin (DIZZY GI UPSET 08/03/16) tramadol (DIZZY, GI UPSET 08/03/16) Home Med List: Acetaminophen (Tylenol) 325 MG TABLET 650 MG PO Q6PRN PRN PAIN 1-3 TEMP GREATER THAN 101 Amoxicillin/Potassium Clav (Augmentin 875-125 Tablet) 875 MG-125 MG TABLET 1 TAB PO BID SOFT TISSUE INFECTION TAKE WITH FOOD Apixaban (Eliquis) 2.5 MG TABLET 1 TAB PO BID BLOOD THINNER (Reported) Calcium Carb/Vitamin D3/Vit K1 (Calcium + D Soft Chewable Tab) 500 MG CALCIUM-1, 000 UNIT-40 MCG TAB.CHEW 1 TAB PO DAILY SUPPLEMENT (Reported) Carvedilol 25 MG TABLET 1 TAB PO BID HEART Docusate Sodium 100 MG CAPSULE 100 MG PO DAILY NEEDED PRN STOOL SOFTENER Furosemide (Lasix) 20 MG TABLET 1 TAB PO Q48 HEART Levothyroxine Sodium (Synthroid) 50 MCG TABLET 1 TAB PO DAILY AC HYPOTHYROIDISM Lisinopril 2.5 MG TABLET 1 TAB PO DAILY BP (Reported) Magnesium Oxide (Magnesium) 400 MG CAPSULE 1 CAP PO DAILY SUPPLEMENT ( Reported) Oxycodone HCl/Acetaminophen (Percocet 5-325 MG Tablet) 5 MG-325 MG TABLET 1-2 TAB PO Q4-6 PRN PRN PAIN CONTROL ALTERNATIVELY TO TYLENOL. DO NOT COMBINE PERCOCET AND TYLENOL. Rosuvastatin Calcium (Crestor) 20 MG TABLET 1 TAB PO QPM CHOLESTEROL ( Reported) Review of Systems Review of Systems Constitutional: Denies: chills, fever. Cardiovascular: Denies: chest pain. Respiratory: Reports: short of breath. Denies: cough. GI: Denies: nausea, vomiting. Genitourinary: Denies: dysuria. Musculoskeletal: Denies: back pain. Skin: Denies: change in skin color. Past History Travel History Traveled to [place] past 21 day No Medical History Blood Transfusion Hx: No Neurological: NONE EENT: NONE Cardiovascular: AFIB, hypertension, [employer] PACEMAKER Respiratory: NONE Gastrointestinal: GERD Hepatic: NONE Renal: NONE Musculoskeletal: NONE Psychiatric: NONE Endocrine: hypothyroidism Blood Disorders: NONE Cancer(s): NONE Surgical History Surgical History: left hip surgery Psychosocial History Where Do You Live? Home Who Do You Live With? child Services at Home: None Primary Language: Spanish Smoking Status: Never Smoked ETOH Use: denies use Illicit Drug Use: denies illicit drug use Functional Ability ADLs Independent: dressing, eating, toileting, bathing. Ambulation: cane IADLs Independent: shopping, housework, finances, food prep, telephone, transportation , medication admin. Exam & Diagnostic Data Last 24 Hrs of Vital Signs/I&O Vital Signs Date Time Temp Pulse Resp B/P Pulse O2 O2 Flow FiO2 Ox Delivery Rate 07/28 0939 93 127/84 07/28 0831 98.1 93 17 127/84 95 Nasal 2.0L Cannula 07/28 0010 97.5 99 18 112/00 95 Nasal 2.0L Cannula 07/28 0000 99 Nasal 2.0L Cannula 07/27 2138 112 132/70 07/27 1617 97.5 111 20 118/82 97 Nasal Cannula 07/27 1324 97.7 129 18 116/78 Intake & Output 07/28 1600 07/28 0800 07/28 0000 Intake Total 370 480 Output Total 350 325 Balance 20 155 Intake, IV 10 Intake, Oral 360 480 Number 1 2 Bowel Movements Output, Urine 350 325 Vital Signs Date Time Temp Pulse Resp B/P Pulse O2 O2 Flow FiO2 Ox Delivery Rate 07/28 0939 93 127/84 07/28 0831 98.1 93 17 127/84 95 Nasal 2.0L Cannula 07/28 0010 97.5 99 18 112/00 95 Nasal 2.0L Cannula 07/28 0000 99 Nasal 2.0L Cannula 07/27 2138 112 132/70 07/27 1617 97.5 111 20 118/82 97 Nasal Cannula 07/27 1324 97.7 129 18 116/78 Intake & Output 07/28 1600 07/28 0800 07/28 0000 Intake Total 370 480 Output Total 350 325 Balance 20 155 Intake, IV 10 Intake, Oral 360 480 Number 1 2 Bowel Movements Output, Urine 350 325 Physical Exam General Appearance: alert, awake, comfortable, thin Head: normal appearance Eyes: Bilateral: normal appearance. Neck: normal inspection Respiratory: normal breath sounds Cardiovascular: regular rate/rhythm Gastrointestinal: normal bowel sounds Extremities: normal inspection Neurologic/Psych: awake, alert Skin: intact Labs/Pavan Results: Laboratory Tests 07/28 07/27 0645 1238 Chemistry Sodium (137 - 145 mmol/L) 129 L 128 L Potassium (3.5 - 5.1 mmol/L) 4.9 3.3 L Chloride (98 - 107 mmol/L) 100 97 L Carbon Dioxide (22 - 30 mmol/L) 24 25 Anion Gap (5 - 16) 5 7 BUN (7 - 17 mg/dL) 14 11 Creatinine (0.5 - 1.0 mg/dL) 0.8 0.8 Estimated GFR (>60 ml/min) > 60 > 60 BUN/Creatinine Ratio (7 - 25 %) 17.5 13.8 Magnesium (1.6 - 2.3 mg/dL) 2.1 1.9 TSH (0.270 - 4.200 uIU/mL) 1.990 Free T4 (0.85 - 1.93 ng/dL) 2.00 H Hematology CBC w Diff NO MAN DIFF REQ NO MAN DIFF REQ WBC (4.8 - 10.8 /CUMM) 4.3 L 4.8 RBC (4.20 - 5.40 /CUMM) 3.39 L 3.29 L Hgb (12.0 - 16.0 G/DL) 10.1 L 9.8 L Hct (37 - 47 %) 30.0 L 29.2 L MCV (81.0 - 99.0 FL) 88.5 88.8 MCH (27.0 - 31.0 PG) 29.9 29.9 RDW (11.5 - 14.5 %) 13.7 13.9 Plt Count (130 - 400 /CUMM) 147 145 MPV (7.4 - 10.4 FL) 9.5 9.4 Gran % (42.2 - 75.2 %) 71.3 68.9 Lymphocytes % (20.5 - 51.1 %) 12.8 L 18.2 L Monocytes % (1.7 - 9.3 %) 13.1 H 10.4 H Eosinophils % (0 - 5 %) 2.5 2.2 Basophils % (0.0 - 2.0 %) 0.3 0.3 Absolute Granulocytes (1.4 - 6.5 /CUMM) 3.1 3.3 Absolute Lymphocytes (1.2 - 3.4 /CUMM) 0.6 L 0.9 L Absolute Monocytes (0.10 - 0.60 /CUMM) 0.6 0.5 Absolute Eosinophils (0.0 - 0.7 /CUMM) 0.1 0.1 Absolute Basophils (0.0 - 0.2 /CUMM) 0 0 PUBS MCHC (33.0 - 37.0 G/DL) 33.8 33.6 Assessment/Plan Assessment/Plan This 86-year-old woman with abdominal pain and underwent repair of an obturator hernia and a partial small bowel resection. Postoperatively she is doing very well. She has a long-standing history of hypothyroidism. She states her thyroid medicine was adjusted recently to 1 whole pill of 75 alternating with one half pill every other day. He also has a history of atrial fibrillation and there apparently has been some difficulty in controlling her ventricular rate The patient's present thyroid function tests show a TSH of 1.99 and a free T4 of 2.0. The free T4 is elevated but the TSH is normal. This could represent blood work which is in transition due to the recent change in her thyroid hormone supplementation. Alternatively it could be due to sick euthyroid. I would recommend restarting the patient's thyroid hormone in a dosage of 50 g once a day and repeating her lab work in 4-6 weeks. Thereafter further adjustments may be necessary. Consult Acknowledgment - Thank you for your consult request.
--- NOTE | 2016-07-28 10:57 | PN- Pulmonary ---
Subjective HPI/Critical Care Issues: Patient seen and examined. Reports that abdominal pain is better. She is eating well. Had one bowel movement yesterday, which was loose. No new complains otherwise. Review of Systems Constitutional: Reports: see HPI. Laboratory Tests 07/28 07/27 0645 1238 Chemistry Sodium (137 - 145 mmol/L) 129 L 128 L Potassium (3.5 - 5.1 mmol/L) 4.9 3.3 L Chloride (98 - 107 mmol/L) 100 97 L Carbon Dioxide (22 - 30 mmol/L) 24 25 Anion Gap (5 - 16) 5 7 BUN (7 - 17 mg/dL) 14 11 Creatinine (0.5 - 1.0 mg/dL) 0.8 0.8 Estimated GFR (>60 ml/min) > 60 > 60 BUN/Creatinine Ratio (7 - 25 %) 17.5 13.8 Magnesium (1.6 - 2.3 mg/dL) 2.1 1.9 TSH (0.270 - 4.200 uIU/mL) 1.990 Free T4 (0.85 - 1.93 ng/dL) 2.00 H Hematology CBC w Diff NO MAN DIFF REQ NO MAN DIFF REQ WBC (4.8 - 10.8 /CUMM) 4.3 L 4.8 RBC (4.20 - 5.40 /CUMM) 3.39 L 3.29 L Hgb (12.0 - 16.0 G/DL) 10.1 L 9.8 L Hct (37 - 47 %) 30.0 L 29.2 L MCV (81.0 - 99.0 FL) 88.5 88.8 MCH (27.0 - 31.0 PG) 29.9 29.9 RDW (11.5 - 14.5 %) 13.7 13.9 Plt Count (130 - 400 /CUMM) 147 145 MPV (7.4 - 10.4 FL) 9.5 9.4 Gran % (42.2 - 75.2 %) 71.3 68.9 Lymphocytes % (20.5 - 51.1 %) 12.8 L 18.2 L Monocytes % (1.7 - 9.3 %) 13.1 H 10.4 H Eosinophils % (0 - 5 %) 2.5 2.2 Basophils % (0.0 - 2.0 %) 0.3 0.3 Absolute Granulocytes (1.4 - 6.5 /CUMM) 3.1 3.3 Absolute Lymphocytes (1.2 - 3.4 /CUMM) 0.6 L 0.9 L Absolute Monocytes (0.10 - 0.60 /CUMM) 0.6 0.5 Absolute Eosinophils (0.0 - 0.7 /CUMM) 0.1 0.1 Absolute Basophils (0.0 - 0.2 /CUMM) 0 0 PUBS MCHC (33.0 - 37.0 G/DL) 33.8 33.6 07/27 0700 Chemistry Troponin I (< 0.11 ng/ml) 0.04 Objective Current Medications: Current Medications Sig/Amber Start time Last Medication Dose Route Stop Time Status Admin Acetaminophen 2,000 MG .STK-MED ONE 07/27 1604 DC IV 07/27 1605 Acetaminophen 650 MG Q6P PRN 07/23 0015 AC PO Acetaminophen 1,000 MG Q6P PRN 07/23 0015 AC 07/27 IV 1607 Apixaban 2.5 MG BID 07/26 1315 AC 07/28 PO 0939 Atorvastatin Calcium 40 MG DAILY 07/23 1000 AC 07/28 PO 0939 Carvedilol 25 MG BID 07/27 2200 AC 07/28 PO 0939 Carvedilol 12.5 MG ONCE ONE 07/27 1300 DC 07/27 PO 07/27 1301 1324 Carvedilol 25 MG BID 07/27 1242 CAN PO Carvedilol 12.5 MG BID 07/22 2344 DC 07/27 PO 0842 Dextrose/Sodium 1,000 ML Q20H 07/23 0015 DC 07/27 Chloride IV 0007 Docusate Sodium 100 MG TID 07/27 1000 DC 07/27 PO 1533 Ketorolac 15 MG Q6-PRN PRN 07/27 1200 AC 07/28 Tromethamine IV 0605 Levothyroxine Sodium 0.0375 MG Q48@00 07/24 0700 DC 07/26 PO 0602 Levothyroxine Sodium 0.075 MG Q48@0700 07/23 0700 AC 07/27 PO 0609 Magnesium Oxide 400 MG DAILY 07/23 1000 AC 07/28 PO 0939 Metoclopramide HCl 10 MG AC 07/27 1200 DC 07/27 PO 1533 Morphine Sulfate 2 MG Q3P PRN 07/23 1629 DC 07/27 IV 0852 Omeprazole 40 MG DAILY AC 07/24 0700 AC 07/28 PO 0605 Potassium Chloride 60 MEQ ONCE ONE 07/27 1500 DC 07/27 PO 07/27 1501 1533 Simethicone 80 MG Q4P PRN 07/22 2345 AC PO Vital Signs & I&O Last 24 Hrs of Vitals and I&O: Vital Signs Date Time Temp Pulse Resp B/P Pulse O2 O2 Flow FiO2 Ox Delivery Rate 07/28 0939 93 127/84 07/28 0831 98.1 93 17 127/84 95 Nasal 2.0L Cannula 07/28 0010 97.5 99 18 112/00 95 Nasal 2.0L Cannula 07/28 0000 99 Nasal 2.0L Cannula 07/27 2138 112 132/70 07/27 1617 97.5 111 20 118/82 97 Nasal Cannula 07/27 1324 97.7 129 18 116/78 Intake & Output 07/28 1600 07/28 0800 07/28 0000 Intake Total 370 480 Output Total 350 325 Balance 20 155 Intake, IV 10 Intake, Oral 360 480 Number 1 2 Bowel Movements Output, Urine 350 325 Impression/Plan Impression/Plan Impression/Plan: General: no apparent distress. sleeping Eyes: No obvious scleral icterus. HEENT: No jugular venous distention or abnormal jugular venous pulsations. Cardiovascular: Normal intensity S1/S2. Irregular. One out of 6 systolic murmur. Respiratory: No rales or rhonchi Abdomen: Mild tenderness Musculoskeletal: No clubbing or cyanosis noted, no edema Skin: Warm Neurologic: No gross focal deficits noted. IMPRESSION This is a lady with persistent atrial fibrillation on eloquis, sick sinus syndrome status post pacemaker, previous stress-induced cardiomyopathy with EF of 45-50%, mitral regurgitation with mild mitral aortic stenosis and moderate tricuspid regurg, hypertension, recent surgery for obturator hernia causing small bowel obstruction no status post surgery with partial bowel resection, chronic diastolic heart failure and demand ischemia now has Continue to have sinus tachycardia but improved Abdominal discomfort which is improving s/p surg Demand ischemia Previous stress-induced cardiomyopathy with low ejection fraction high risk for heart failure On appropriate anticoagulation for atrial fibrillation Hypothyroidism on levothyroxine Hyponatremia and appears euvolemic RECOMMENDATION REduce levoxyl as noted in endo note Check hemoglobin and hematocrit daily Coreg to 25 mg twice a day Watch sodium may need fluid restriction from am
[2016-07-28 16:44] VITALS: BP 118/70
[2016-07-28 22:08] VITALS: BP 136/88
[2016-07-29 07:30] VITALS: BP 130/60
--- NOTE | 2016-07-29 07:42 | PN- General Surgery ---
Subjective Subjective: s/p sb rxn for incarcerated hernia prabhu cp, sob, no n+v with diet c/o multiple loose stools mild lower abdominal cramping Objective Vital Signs and I&Os Vital Signs Date Time Temp Pulse Resp B/P Pulse O2 O2 Flow FiO2 Ox Delivery Rate 07/29 0000 96 Room Air 07/288 97.5 107 18 136/88 100 Nasal 1.0L Cannula 07/28 2108 107 136/88 07/28 1722 95 Nasal 1.0L Cannula 07/28 1644 97.3 83 18 118/70 99 Nasal 1.0L Cannula 07/28 0939 93 127/84 07/28 0831 98.1 93 17 127/84 95 Nasal 2.0L Cannula 07/28 0800 Nasal 2.0L Cannula Intake & Output 07/29 0800 07/29 0000 07/28 1600 07/28 0800 07/28 0000 07/27 1600 Intake Total 240 480 480 153 264 6603 Output Total 351 400 400 350 325 500 Balance -111 80 80 20 155 1000 Intake, IV 10 700 Intake, Oral 240 480 480 360 480 800 Number 2 2 1 1 2 Bowel Movements Output, Stool 1 Output, Urine 350 400 400 350 325 500 Patient 120 lb Weight Physical Exam: cv: afib lungs: clear abd: softly distended no pain to palp wounds c/d/i +bs, no peritonitis ext: warm, no edema no calf tenderness to palp Assessment/Plan Assessment/Plan surgically improving plan advance diet asa tolerated ? tid colace, maybe bid/daily cont oob/ambulate will sign off today but will remain available fro reconsult prn
--- NOTE | 2016-07-29 07:56 | Discharge Summary ---
Visit Information Visit Dates Admission Date: 07/23/16 Discharge Date: 07/30/16 Hospital Course Course Attending Physician: TREVER JOHNSON MD Primary Care Physician: TREVER JOHNSON MD Hospital Course: Patient is an 86-year-old female with a history of persistent atrial fibrillation on Eliquis, Takutsubo cardiomyopathy resolved, hypertension, sinus syndrome status post pacemaker, mitral regurgitation and mild aortic stenosis, who now presented with abdominal pain. Patient stated that she has had intermittent episodes of abdominal pain with weight loss. She stated that she has lost her appetite over the past 24 hours. She complains of nausea with minimal vomiting. She reported that she has not moved her bowels in the past few days. She states that the pain became more severe and therefore she presented to the emergency room for evaluation. From the cardiac standpoint she denies chest pain shortness of breath or palpitations. She states that she last took her Eliquis at least 36 hours ago prior to admission. Her most recent echocardiogram was performed December 2014 demonstrated ejection fraction of 40-50%, mitral regurgitation and mild aortic stenosis with moderate to severe tricuspid regurgitation. Her most recent pacemaker check was in March 2016 demonstrating normal device function. She underwent a cardiac catheterization 2010 demonstrating normal coronary arteries. She was afebrile on presentation, tachycardic to 100, respiratory rate of 18, blood pressure 172/88, she was 96% on room air. Labs were essentially normal, troponin was found elevated to 0.14, which was trended to 0.16 and then came down to 0.15, this was thought to be secondary to demand ischemia. In the hospital, she was treated for following problems. Demand ischemia. Patient had an increase in troponin in the setting of cardiomyopathy. Troponins were stable and no new ekg changes. Cardiology consult service was following. Her Carvidilol dose increased on 07/27/16 to 25 mg BID for better HR control and atorvastatin continued on home dose. Lisinopril was restarted on however lasix was held since 07/26/16 Severe abdominal pain secondary obturator hernia with small bowel obstruction She had severe abdominal pain on presentation, s/p laparotomy, intestinal resection and mesh placement at obturator on 07/25/16. Post surgery patient was started on regular diet whichs she is tolerating the diet well. Her pain was managed with tylenol and percocet. History of heart failure with most recent ejection fraction 45 to 50% secondary to takutsubo cardiomyopathy + chornic diastolic heart failure. Her Lasix held on 07/26/16 per cardiology, as patient had poor oral intake at that time. History of hypothyroidism. Patient had elevated T4 endocrinology consult service was called. Patients Levothyroxin dose decreased to 0.05 mg daily. T3 free t4 levels normal on . Plan is to re-cehck TSH and free T4 in 3-4 weeks. History of atrial fibrillation. Post surgery, Eliquis was restarted on 07/26/16, BID, and rate control was maintained with metoprolol and carvedilol Diarrhea Patient reported of diarrhea since 07/28/16, she had 7 bowel movements on . She was off any bowel regimen. This could also be due to her underlyin hyperthyroid state but endo thinks otherwise as her levels are normal. Her stool was sent for culture/ova, parasites and C. diff Allergies: Coded Allergies: heparin (Intermediate, LEAKED INTO TISSUE AND CAUSED EXTREME PAIN 08/03/16) Per antibiotic order sheet. -- Ruben 12/03/12 clarithromycin (UNKNOWN PER PT DAUGHTER BELIEVES IT WAS EMYCIN - GI UPSET ) erythromycin base (GI UPSET 08/03/16) gabapentin (DIZZY GI UPSET 08/03/16) tramadol (DIZZY, GI UPSET 08/03/16) Disposition Summary Disposition Principal Diagnosis: Small bowel obstruction Additional Diagnosis: atrial fibrillation HTN Discharge Disposition: home health services Discharge Instructions General Discharge Information Code Status: Full Code Patient's Diet: heart healthy Patient's Activity: as tolerated Follow-Up Instructions/Appts: Please follow up with PCP and Cardiology with 7 days of discharge Medications at Discharge Discharge Medications: Stop taking the following medications: Furosemide (Furosemide) 20 MG TABLET ORAL Every Morning Qty = 90 Levothyroxine Sodium (Levoxyl) 75 MCG TABLET ORAL Every other day Continue taking these medications: Rosuvastatin Calcium (Crestor) 20 MG TABLET 1 Tablet ORAL Every night Qty = 90 Comments: Last Taken: 08/06/16 Time: 5 PM Acetaminophen With Codeine (Acetaminophen-Cod #3 Tablet) 300 MG-30 MG TABLET 0.5-1 Tablet ORAL TWICE DAILY as needed for PAIN Qty = 60 Comments: NOT GIVEN IN HOSPITAL Apixaban (Eliquis) 2.5 MG TABLET 1 Tablet ORAL TWICE DAILY Qty = 60 Comments: Last Taken: 08/05/16 Time: 9:30 AM Lisinopril (Lisinopril) 2.5 MG TABLET 1 Tablet ORAL DAILY Qty = 90 Comments: Last Taken: 08/06/16 Time: 9:30 AM Acetaminophen (Pharbetol) 325 MG TABLET 1-2 Tablet ORAL as needed for PAIN Comments: Last Taken: 07/29/16 Time: 4:00 AM Magnesium Oxide (Magnesium) 400 MG CAPSULE 1 Capsule ORAL DAILY Comments: Last Taken: 08/05/16 Time: 9:30 AM Simethicone (Gas Relief) (Unknown Strength) TAB.CHEW Unknown Dose ORAL as needed for GAS Comments: NOT TAKEN IN HOSPITAL Calcium Carb/Vitamin D3/Vit K1 (Calcium + D Soft Chewable Tab) 500 MG CALCIUM-1, 000 UNIT-40 MCG TAB.CHEW 1 Tablet ORAL DAILY Comments: NOT GIVEN IN HOSPITAL Carvedilol (Carvedilol) 25 MG TABLET 1 Tablet ORAL TWICE DAILY Qty = 90 Comments: Last Taken: 08/05/16 Time: 9:30AM This prescription has been renewed Start taking the following new medications: Levothyroxine Sodium (Synthroid) 50 MCG TABLET 1 Tablet ORAL DAILY BEFORE BREAKFAST Days = 60 No Refills Comments: Last Taken: 08/05/16 Time: 5:30 AM Furosemide (Lasix) 20 MG TABLET 1 Tablet ORAL EVERY 48 HOURS (Every 2 days) Qty = 30 No Refills Comments: Last Taken: 08/04/16 Time: 9:30AM Copies To: KATHERINE ADAMS DO; SAMIR DONIS,[facility]; JOSEPH RODRIGUEZ MD Attending Review Statement Documenting Attending: JOSEPH RODRIGUEZ MD
[2016-07-29 08:14] LABS: ABSOLUTE BASOPHIL COUNT 0 /CUMM (0.0-0.2); ABSOLUTE EOSINOPHIL COUNT 0.1 /CUMM (0.0-0.7); ABSOLUTE GRANULOCYTE CT 3.2 /CUMM (1.4-6.5); ABSOLUTE LYMPH COUNT 0.9 /CUMM (1.2-3.4); ABSOLUTE MONOCYTE COUNT 0.8 /CUMM (0.10-0.60); BASOPHIL % 0.3 % (0.0-2.0); EOSINOPHIL % 1.5 % (0-5); GRANULOCYTE % 65.3 % (42.2-75.2); HEMATOCRIT 31.2 % (37-47); MEAN CORPUSCULAR HGB CONC 34.1 G/DL (33.0-37.0); MEAN CORPUSCULAR VOLUME 88.2 FL (81.0-99.0); MEAN PLATELET VOLUME 9.9 FL (7.4-10.4); PLATELET COUNT 178 /CUMM (130-400); RBC DISTRIBUTION WIDTH 13.6 % (11.5-14.5); RED BLOOD CELL CT 3.53 /CUMM (4.20-5.40); WHITE BLOOD CELL COUNT 4.9 /CUMM (4.8-10.8)
--- NOTE | 2016-07-29 08:48 | PN- Att Addend ---
Attending Addendum Attending Brief Note Patient complains of abdominal discomfort and diarrhea General Appearance: Alert, No Acute Distress Skin: Grossly normal HEENT: PEERLA Neck: Supple, No JVD Cardiovascular: Regular Rate, Normal S1, Normal S2, No Murmurs Lungs: Clear to Auscultation, Normal Air Movement Abdomen: Decreased bowel sounds, clean anterior abdominal wound Neurological: Normal Speech, Strength at 5/5 X4 Ext, Cranial Nerves 3-12 NL, Reflexes 2+ Extremities: No Clubbing, No Cyanosis, No Edema Vascular: Normal Pulses Assessment 86-year-old with history of atrial fibrillation on Eliquis and presenting with complaining of abdominal pain. CAT scan suggested obturator hernia with small bowel obstruction. She is now status post day 5 exploratory laparotomy with hernia repair and small bowel resection for possible ischemia. She is tolerating regular diet however having diarrhea. Plan Discontinue all laxatives Discontinue Toradol Regular diet May continue other home meds DVT prophylaxis Current Medications Sig/Amber Start time Last Medication Dose Route Stop Time Status Admin Acetaminophen 650 MG Q6P PRN 07/23 0015 AC 07/29 PO 0355 Acetaminophen 1,000 MG Q6P PRN 07/23 0015 AC 07/27 IV 1607 Apixaban 2.5 MG BID 07/26 1315 AC 07/28 PO 2108 Atorvastatin Calcium 40 MG DAILY 07/23 1000 AC 07/28 PO 0939 Carvedilol 25 MG BID 07/27 2200 AC 07/28 PO 2108 Ketorolac 15 MG Q6-PRN PRN 07/27 1200 AC 07/29 Tromethamine IV 0636 Levothyroxine Sodium 0.05 MG DAILY AC 07/28 1600 AC 07/29 PO 0608 Levothyroxine Sodium 0.075 MG Q48@0700 07/23 0700 DC 07/27 PO 0609 Magnesium Oxide 400 MG DAILY 07/23 1000 AC 07/28 PO 0939 Melatonin 3 MG AT BEDTIME 07/28 2200 AC 07/28 PO 2328 Omeprazole 40 MG DAILY AC 07/24 0700 AC 07/29 PO 0608 Simethicone 80 MG Q4P PRN 07/22 2345 AC PO Laboratory Tests 07/29 0640 Chemistry Sodium Pending Potassium Pending Chloride Pending Carbon Dioxide Pending Anion Gap Pending BUN Pending Creatinine Pending BUN/Creatinine Ratio Pending Hematology CBC w Diff NO MAN DIFF REQ WBC (4.8 - 10.8 /CUMM) 4.9 RBC (4.20 - 5.40 /CUMM) 3.53 L Hgb (12.0 - 16.0 G/DL) 10.6 L Hct (37 - 47 %) 31.2 L MCV (81.0 - 99.0 FL) 88.2 MCH (27.0 - 31.0 PG) 30.0 RDW (11.5 - 14.5 %) 13.6 Plt Count (130 - 400 /CUMM) 178 MPV (7.4 - 10.4 FL) 9.9 Gran % (42.2 - 75.2 %) 65.3 Lymphocytes % (20.5 - 51.1 %) 17.4 L Monocytes % (1.7 - 9.3 %) 15.5 H Eosinophils % (0 - 5 %) 1.5 Basophils % (0.0 - 2.0 %) 0.3 Absolute Granulocytes (1.4 - 6.5 /CUMM) 3.2 Absolute Lymphocytes (1.2 - 3.4 /CUMM) 0.9 L Absolute Monocytes (0.10 - 0.60 /CUMM) 0.8 H Absolute Eosinophils (0.0 - 0.7 /CUMM) 0.1 Absolute Basophils (0.0 - 0.2 /CUMM) 0 PUBS MCHC (33.0 - 37.0 G/DL) 34.1 Vital Signs Date Time Temp Pulse Resp B/P Pulse O2 O2 Flow FiO2 Ox Delivery Rate 07/29 0730 97.9 112 20 130/60 93 Room Air 07/29 0000 96 Room Air 07/288 97.5 107 18 136/88 100 Nasal 1.0L Cannula 07/28 2108 107 136/88 07/28 1722 95 Nasal 1.0L Cannula 07/28 1644 97.3 83 18 118/70 99 Nasal 1.0L Cannula 07/28 0939 93 127/84
--- NOTE | 2016-07-29 09:46 | PN- Housestaff ---
Subjective Follow-up For: abdominal pain s/p laparomty Subjective: Patient seen and examined. She reports of abdominal discomfort and 7 episodes of loose stools this morning. Patient reports that it is loose w/o any blood and foul smelling. Patient ahs not been on any laxatives. Patient does not have nay leukocytosis or any fever. Review of Systems Constitutional: Reports: see HPI. Objective Last 24 Hrs of Vital Signs/I&O Vital Signs Date Time Temp Pulse Resp B/P Pulse O2 O2 Flow FiO2 Ox Delivery Rate 07/29 1048 112 130/60 07/29 0730 97.9 112 20 130/60 93 Room Air 07/29 0000 96 Room Air 07/28 2208 97.5 107 18 136/88 100 Nasal 1.0L Cannula 07/28 2108 107 136/88 07/28 1722 95 Nasal 1.0L Cannula 07/28 1644 97.3 83 18 118/70 99 Nasal 1.0L Cannula Intake & Output 07/29 1600 07/29 0800 07/29 0000 Intake Total 240 480 Output Total 351 400 Balance -111 80 Intake, Oral 240 480 Number 2 2 Bowel Movements Output, Stool 1 Output, Urine 350 400 Patient 54.204 kg Weight Physical Exam General Appearance: Alert, Oriented X3, Cooperative, No Acute Distress Skin: No Rashes, No Breakdown HEENT: Atraumatic Neck: Supple Cardiovascular: Normal S1, Normal S2, No Murmurs Lungs: Normal Air Movement Abdomen: Soft, No Tenderness, erika in place Neurological: Normal Speech Extremities: No Edema Current Medications: Current Medications Sig/Amber Start time Last Medication Dose Route Stop Time Status Admin Acetaminophen 650 MG .STK-MED ONE 07/29 0353 DC PO 07/29 0354 Acetaminophen 650 MG Q6P PRN 07/23 0015 AC 07/29 PO 0355 Acetaminophen 1,000 MG Q6P PRN 07/23 0015 AC 07/29 IV 1352 Apixaban 2.5 MG BID 07/26 1315 AC 07/29 PO 1049 Atorvastatin Calcium 40 MG DAILY 07/23 1000 AC 07/29 PO 1049 Carvedilol 25 MG BID 07/27 2200 AC 07/29 PO 1048 Ketorolac 15 MG Q6-PRN PRN 07/27 1200 DC 07/29 Tromethamine IV 0636 Levothyroxine Sodium 0.05 MG DAILY AC 07/28 1600 AC 07/29 PO 0608 Levothyroxine Sodium 0.075 MG Q48@0700 07/23 0700 DC 07/27 PO 0609 Magnesium Oxide 400 MG DAILY 07/23 1000 AC 07/29 PO 1049 Melatonin 3 MG AT BEDTIME 07/28 2200 AC 07/28 PO 2328 Omeprazole 40 MG DAILY AC 07/24 0700 AC 07/29 PO 0608 Oxycodone/ 1 TAB Q8P PRN 07/29 1415 AC Acetaminophen PO Simethicone 80 MG Q4P PRN 07/22 2345 AC PO Last 24 Hrs of Lab/Pavan Results Last 24 Hrs of Labs/Mics: Laboratory Tests 07/29/16 0640: Anion Gap 9, Estimated GFR 60, BUN/Creatinine Ratio 22.2, TSH 1.460, Free T4 1.52, Thyroxine (T4) 6.9, CBC w Diff NO MAN DIFF REQ, RBC 3.53 L, MCV 88.2, MCH 30.0, RDW 13.6, MPV 9.9, Gran % 65.3, Lymphocytes % 17.4 L, Monocytes % 15.5 H , Eosinophils % 1.5, Basophils % 0.3, Absolute Granulocytes 3.2, Absolute Lymphocytes 0.9 L, Absolute Monocytes 0.8 H, Absolute Eosinophils 0.1, Absolute Basophils 0, PUBS MCHC 34.1 Microbiology 07/29 945 STOOL: Clostridium difficile Toxin A & B - COLB 07/29 945 STOOL: Stool Culture - COLB Assessment/Plan Assessment: This is a 86-year-old lady with past medical history of atrial fibrillation, multiple falls presented with severe abdominal pain. She was afebrile on presentation, tachycardic to 100, respiratory rate of 18, blood pressure 172/88, she was 96% on room air. Labs were essentially normal, troponin was found elevated to 0.14, which was trended to 0.16 and then came down to 0.15, this was thought to be secondary to demand ischemia. Problem list/plan #1 demand ischemia. * Patient had an increase in troponin in the setting of cardiomyopathy. Troponins are stable and no new ekg changes. * Cardiology following. * Carvidilol dose increased on 07/27/16 to 25 mg BID, atorvastatin continued on home dose. * Lisinopril restarted on 07/29/16 however will continue to hold lasix since 07/26 #2 severe abdominal pain secondary obturator hernia with small bowel obstruction * She had severe abdominal pain on presentation, s/p laparotomy, intestinal resection and mesh placement at obturator on 07/25/16. * Per surgery recommendation, patient restarted initially on clear liq and to regular diet Patient is tolerating the diet well. * Continue pain management with percocet and tylenol as necessary #3 history of heart failure with most recent ejection fraction 45 to 50% secondary to takutsubo cardiomyopathy + chornic diastolic heart failure. * Lasix held on 07/26/16, will check with cardiology regarding restarting it. * Cardiology continues to follow the patient post surgery. #4 history of hypothyroidism. * Patient had elevated T4 endocrinology consult service was called. Patients Levothyroxin dose decreased to 0.05 mg daily. T3 free t4 levels normal on #5 history of atrial fibrillation. * Eliquis restarted on 07/26/16, BID, will continue to monitor * Continue rate control with metoprolol and carvedilol #6 Diarrhea Patient reports of diarrhea since 07/28/16, she had 7 bowel movements since this am. She if off any bowel regimen. This could also be due to her underlyin hyperthyroid state but endo thinks otherwise as her levels are normal. Will send stool for culture/ova and parasites and C. diff Patient is full code DVT prophylaxis eliquis Mild to moderate and severe pain pathway. Problem List: 1. Atrial fibrillation Pain Ratin Pain Location: abdomen Pain Goal: Pain 4 or less Pain Plan: percocet tylenol Tomorrow's Labs & Rationales: cbc
--- NOTE | 2016-07-29 10:10 | PN- Cardiology ---
Subjective Subjective: No chest pain, dyspnea, palpitations. Still with abdominal discomfort. Has some loose stool. Objective Vital Signs and I&Os Vital Signs Date Time Temp Pulse Resp B/P Pulse O2 O2 Flow FiO2 Ox Delivery Rate 07/29 0730 97.9 112 20 130/60 93 Room Air 07/29 0000 96 Room Air 07/28 2208 97.5 107 18 136/88 100 Nasal 1.0L Cannula 07/28 2108 107 136/88 07/28 1722 95 Nasal 1.0L Cannula 07/28 1644 97.3 83 18 118/70 99 Nasal 1.0L Cannula Intake & Output 07/29 1600 07/29 0800 07/29 0000 07/28 1600 07/28 0800 07/28 0000 Intake Total 240 480 480 370 480 Output Total 351 400 400 350 325 Balance -111 80 80 20 155 Intake, IV 10 Intake, Oral 240 480 480 360 480 Number 2 2 1 1 2 Bowel Movements Output, Stool 1 Output, Urine 350 400 400 350 325 Patient 120 lb Weight Physical Exam: General: no apparent distress. Alert. Eyes: No obvious scleral icterus. HEENT: No jugular venous distention or abnormal jugular venous pulsations. Cardiovascular: Normal intensity S1/S2. Irregular. One out of 6 systolic murmur. Respiratory: No rales or rhonchi Abdomen: Mild tenderness Musculoskeletal: No clubbing or cyanosis noted, no edema Skin: Warm Neurologic: No gross focal deficits noted. Current Medications: Current Medications Sig/Amber Start time Last Medication Dose Route Stop Time Status Admin Acetaminophen 650 MG Q6P PRN 07/23 0015 AC 07/29 PO 0355 Acetaminophen 1,000 MG Q6P PRN 07/23 0015 AC 07/27 IV 1607 Apixaban 2.5 MG BID 07/26 1315 AC 07/28 PO 2108 Atorvastatin Calcium 40 MG DAILY 07/23 1000 AC 07/28 PO 0939 Carvedilol 25 MG BID 07/27 2200 AC 07/28 PO 2108 Ketorolac 15 MG Q6-PRN PRN 07/27 1200 DC 07/29 Tromethamine IV 0636 Levothyroxine Sodium 0.05 MG DAILY AC 07/28 1600 AC 07/29 PO 0608 Levothyroxine Sodium 0.075 MG Q48@0700 07/23 0700 DC 07/27 PO 0609 Magnesium Oxide 400 MG DAILY 07/23 1000 AC 07/28 PO 0939 Melatonin 3 MG AT BEDTIME 07/28 2200 AC 07/28 PO 2328 Omeprazole 40 MG DAILY AC 07/24 0700 AC 07/29 PO 0608 Simethicone 80 MG Q4P PRN 07/22 2345 AC PO Results Last 48 Hrs of Labs/Mics: Laboratory Tests 07/29/16 0640: Anion Gap 9, Estimated GFR 60, BUN/Creatinine Ratio 22.2, CBC w Diff NO MAN DIFF REQ, RBC 3.53 L, MCV 88.2, MCH 30.0, RDW 13.6, MPV 9.9, Gran % 65.3, Lymphocytes % 17.4 L, Monocytes % 15.5 H, Eosinophils % 1.5, Basophils % 0.3, Absolute Granulocytes 3.2, Absolute Lymphocytes 0.9 L, Absolute Monocytes 0.8 H, Absolute Eosinophils 0.1, Absolute Basophils 0, PUBS MCHC 34.1 07/28/16 0645: Anion Gap 5, Estimated GFR > 60, BUN/Creatinine Ratio 17.5, Magnesium 2.1, CBC w Diff NO MAN DIFF REQ, RBC 3.39 L, MCV 88.5, MCH 29.9, RDW 13.7, MPV 9.5, Gran % 71.3, Lymphocytes % 12.8 L, Monocytes % 13.1 H, Eosinophils % 2.5, Basophils % 0.3, Absolute Granulocytes 3.1, Absolute Lymphocytes 0.6 L, Absolute Monocytes 0.6, Absolute Eosinophils 0.1, Absolute Basophils 0, PUBS MCHC 33.8 07/27/16 1238: Anion Gap 7, Estimated GFR > 60, BUN/Creatinine Ratio 13.8, Magnesium 1.9, TSH 1.990, Free T4 2.00 H, CBC w Diff NO MAN DIFF REQ, RBC 3.29 L, MCV 88.8, MCH 29.9, RDW 13.9, MPV 9.4, Gran % 68.9, Lymphocytes % 18.2 L, Monocytes % 10.4 H , Eosinophils % 2.2, Basophils % 0.3, Absolute Granulocytes 3.3, Absolute Lymphocytes 0.9 L, Absolute Monocytes 0.5, Absolute Eosinophils 0.1, Absolute Basophils 0, PUBS MCHC 33.6 Recent Imaging Studies: Telemetry tracings were personally reviewed and show atrial fibrillation with an average ventricular response rate around 100 bpm Assessment/Plan Assessment/Plan 1. Persistent atrial fibrillation on outpatient Eliquis 2. Sick sinus syndrome status post pacemaker last interrogation was in March demonstrated normal function 3. History of Takutsubo cardiomyopathy resolved most recent ejection fraction is 45-50% 4. Moderate mitral regurgitation and mild aortic stenosis with moderate to severe tricuspid regurgitation 5. Hypertension 6. Abdominal pain with obturator hernia causing small bowel obstruction now status post hernia repair and partial small bowel resection 7. Chronic diastolic heart failure stable 8. Demand ischemia Patient still has some abdominal soreness. Heart rate is reasonably well- controlled on the increased carvedilol. As blood pressure is improved okay to resume her low dose lisinopril but would not to resume her Lasix at this time. Continue the twice a day Eliquis. Qasim Mueller MD [facility] Continue telemetry? Yes
[2016-07-29 16:30] VITALS: BP 128/78
[2016-07-30 00:44] VITALS: BP 120/70
--- NOTE | 2016-07-30 08:03 | PN- Endocrinology ---
Assessment/Plan Assessment: The patient feels improved. She is eating well. Repeat thyroid function tests were done yesterday. The patient's TSH is 1.46 and free T4 1.52. These are within the normal range. Plan: Suggest continue levothyroxine 50 g once a day. The patient will need repeat thyroid function tests in 3 or 4 weeks as an outpatient and further adjustments may be necessary. Subjective Subjective: Feels improved Review of Systems Constitutional: Denies: chills, fever. Cardiovascular: Denies: chest pain. Respiratory: Denies: short of breath. Gastrointestinal: Denies: abdominal pain, nausea, vomiting. Skin: Reports: no symptoms. Objective Last 24 Hrs of Vital Signs/I&O Vital Signs Date Time Temp Pulse Resp B/P Pulse O2 O2 Flow FiO2 Ox Delivery Rate 07/30 0044 97.4 94 20 120/70 96 Room Air 07/30 0000 96 07/29 2111 91 128/78 07/29 1630 97.6 91 18 128/78 97 Room Air 07/29 1048 112 130/60 Intake & Output 07/30 1600 07/30 0800 07/30 0000 Intake Total 240 240 Output Total 300 200 Balance -60 40 Intake, Oral 240 240 Output, Urine 300 200 Patient 114 lb Weight Vital Signs Date Time Temp Pulse Resp B/P Pulse O2 O2 Flow FiO2 Ox Delivery Rate 07/30 0044 97.4 94 20 120/70 96 Room Air 07/30 0000 96 07/29 2111 91 128/78 07/29 1630 97.6 91 18 128/78 97 Room Air 07/29 1048 112 130/60 Intake & Output 07/30 1600 07/30 0800 07/30 0000 Intake Total 240 240 Output Total 300 200 Balance -60 40 Intake, Oral 240 240 Output, Urine 300 200 Patient 114 lb Weight Physical Exam General Appearance: alert, awake, comfortable Head: normal appearance Neck: normal inspection Cardiovascular: irregularly irregular Abdomen: normal bowel sounds Extremities: normal inspection Current Medications: Current Medications Sig/Amber Start time Last Medication Dose Route Stop Time Status Admin Acetaminophen 650 MG Q6P PRN 07/23 0015 AC 07/29 PO 0355 Acetaminophen 1,000 MG Q6P PRN 07/23 0015 AC 07/29 IV 211 Apixaban 2.5 MG BID 07/26 1315 AC 07/29 PO 2111 Atorvastatin Calcium 40 MG DAILY 07/23 1000 AC 07/29 PO 1049 Carvedilol 25 MG BID 07/27 2200 AC 07/29 PO 211 Ketorolac 15 MG Q6-PRN PRN 07/27 1200 DC 07/29 Tromethamine IV 0636 Levothyroxine Sodium 0.05 MG DAILY AC 07/28 1600 AC 07/30 PO 0624 Lisinopril 2.5 MG DAILY 07/30 1000 AC PO Magnesium Oxide 400 MG DAILY 07/23 1000 AC 07/29 PO 1049 Melatonin 3 MG AT BEDTIME 07/28 220 AC 07/29 PO 211 Omeprazole 40 MG DAILY AC 07/24 0700 AC 07/30 PO 0624 Oxycodone/ 1 TAB Q8P PRN 07/29 1415 AC 07/30 Acetaminophen PO 0355 Simethicone 80 MG Q4P PRN 07/22 2345 AC PO Results Pertinent Lab/Pavan Results: Laboratory Tests 07/30 0700 Chemistry Sodium Pending Potassium Pending Chloride Pending Carbon Dioxide Pending Anion Gap Pending BUN Pending Creatinine Pending BUN/Creatinine Ratio Pending Hematology CBC w Diff Pending WBC Pending RBC Pending Hgb Pending Hct Pending MCV Pending MCH Pending RDW Pending Plt Count Pending MPV Pending PUBS MCHC Pending
[2016-07-30 08:17] LABS: ABSOLUTE BASOPHIL COUNT 0 /CUMM (0.0-0.2); ABSOLUTE EOSINOPHIL COUNT 0.1 /CUMM (0.0-0.7); BASOPHIL % 0.3 % (0.0-2.0); MEAN CORPUSCULAR HGB CONC 33.8 G/DL (33.0-37.0)
[2016-07-30 08:27] LABS: ABSOLUTE GRANULOCYTE CT 5.9 /CUMM (1.4-6.5); ABSOLUTE MONOCYTE COUNT 0.6 /CUMM (0.10-0.60); GRANULOCYTE % 77.3 % (42.2-75.2); MEAN CORPUSCULAR HGB 29.8 PG (27.0-31.0); MEAN CORPUSCULAR VOLUME 88.1 FL (81.0-99.0); MEAN PLATELET VOLUME 9.3 FL (7.4-10.4); PLATELET COUNT 194 /CUMM (130-400); RED BLOOD CELL CT 3.52 /CUMM (4.20-5.40)
[2016-07-30 08:28] LABS: WHITE BLOOD CELL COUNT 7.7 /CUMM (4.8-10.8)
--- NOTE | 2016-07-30 08:34 | PN- Housestaff ---
Subjective Follow-up For: s/p laparotomy small intestinal obstruction Subjective: Patient seen and examined. Feels much better. No new complain. ABdominal pain has improved. Review of Systems Constitutional: Reports: see HPI. Objective Last 24 Hrs of Vital Signs/I&O Vital Signs Date Time Temp Pulse Resp B/P Pulse O2 O2 Flow FiO2 Ox Delivery Rate 07/30 0941 100 149/71 07/30 0940 100 149/71 07/30 0839 97.8 100 16 149/71 92 Room Air 07/30 0044 97.4 94 20 120/70 96 Room Air 07/30 0000 96 07/29 2112 91 128/78 07/29 1630 97.6 91 18 128/78 97 Room Air Intake & Output 07/30 1600 07/30 0800 07/30 0000 Intake Total 720 240 240 Output Total 300 200 Balance 720 -60 40 Intake, Oral 720 240 240 Output, Urine 300 200 Patient 51.71 kg Weight Physical Exam General Appearance: Alert, Oriented X3, Cooperative Skin: No Rashes HEENT: Atraumatic Neck: Supple Lymphatic: Axillary nl Cardiovascular: Regular Rate, Normal S1, Normal S2 Lungs: Normal Air Movement Abdomen: Soft, No Tenderness, erika in place Neurological: Normal Speech Current Medications: Current Medications Sig/Amber Start time Last Medication Dose Route Stop Time Status Admin Acetaminophen 650 MG Q6P PRN 07/23 0015 AC 07/30 PO 1152 Acetaminophen 1,000 MG Q6P PRN 07/23 0015 AC 07/29 IV 2113 Apixaban 2.5 MG BID 07/26 1315 AC 07/30 PO 0940 Atorvastatin Calcium 40 MG DAILY 07/23 1000 AC 07/30 PO 0941 Carvedilol 25 MG BID 07/27 2200 AC 07/30 PO 0940 Levothyroxine Sodium 0.05 MG DAILY AC 07/28 1600 AC 07/30 PO 0624 Lisinopril 2.5 MG DAILY 07/30 1000 AC 07/30 PO 0941 Magnesium Oxide 400 MG DAILY 07/23 1000 AC 07/30 PO 0941 Melatonin 3 MG AT BEDTIME 07/28 2200 AC 07/29 PO 2112 Omeprazole 40 MG DAILY AC 07/24 0700 AC 07/30 PO 0624 Oxycodone/ 1 TAB Q8P PRN 07/29 1415 AC 07/30 Acetaminophen PO 1431 Patient Medication 1 ED .STK-MED ONE 07/30 1415 [facility] ED 07/30 1416 Simethicone 80 MG Q4P PRN 07/22 2345 AC PO Last 24 Hrs of Lab/Pavan Results Last 24 Hrs of Labs/Mics: Laboratory Tests 07/30/16 0700: Anion Gap 7, Estimated GFR 53 L, BUN/Creatinine Ratio 21.0, CBC w Diff NO MAN DIFF REQ, RBC 3.52 L, MCV 88.1, MCH 29.8, RDW 14.0, MPV 9.3, Gran % 77.3 H, Lymphocytes % 13.0 L, Monocytes % 8.4, Eosinophils % 1.0, Basophils % 0.3, Absolute Granulocytes 5.9, Absolute Lymphocytes 1.0 L, Absolute Monocytes 0.6, Absolute Eosinophils 0.1, Absolute Basophils 0, PUBS MCHC 33.8 Assessment/Plan Assessment: This is a 86-year-old lady with past medical history of atrial fibrillation, multiple falls presented with severe abdominal pain. She was afebrile on presentation, tachycardic to 100, respiratory rate of 18, blood pressure 172/88, she was 96% on room air. Labs were essentially normal, troponin was found elevated to 0.14, which was trended to 0.16 and then came down to 0.15, this was thought to be secondary to demand ischemia. Problem list/plan #1 demand ischemia. * Patient had an increase in troponin in the setting of cardiomyopathy. Troponins are stable and no new ekg changes. * Cardiology following. * Carvidilol dose increased on 07/27/16 to 25 mg BID, atorvastatin continued on home dose. * Lisinopril restarted on 07/29/16 however will restart lasix every other day from 07/31/16 #2 severe abdominal pain secondary obturator hernia with small bowel obstruction * She had severe abdominal pain on presentation, s/p laparotomy, intestinal resection and mesh placement at obturator on 07/25/16. * Per surgery recommendation, patient restarted initially on clear liq and to regular diet Patient is tolerating the diet well. Surgery signed off. Patient will have erika removed in Dr. 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 * Lasix held on 07/26/16, will restart q48 tomorrow * Cardiology continues to follow the patient post surgery. #4 history of hypothyroidism. * Patient had elevated T4 endocrinology consult service was called. Patients Levothyroxin dose decreased to 0.05 mg daily. T3 free t4 levels normal on #5 history of atrial fibrillation. * Eliquis restarted on 07/26/16, BID, will continue to monitor * Continue rate control with metoprolol and carvedilol #6 Diarrhea Patient reports of diarrhea since 07/28/16, she had 7 bowel movements yesterday. Diarrhea improved since am. She if off any bowel regimen. This could also be due to her underlyin hyperthyroid state but endo thinks otherwise as her levels are normal. Will follow up stool for culture/ova and parasites and C. diff Patient is full code DVT prophylaxis eliquis Mild to moderate and severe pain pathway. Problem List: 1. Small bowel obstruction Pain Ratin Pain Location: abdomen Pain Goal: Pain 4 or less Pain Plan: tylenol prn for pain Tomorrow's Labs & Rationales: none
--- NOTE | 2016-07-30 08:38 | PN- Att Addend ---
Attending Addendum Attending Brief Note Patient complains of abdominal discomfort and diarrhea General Appearance: Alert, No Acute Distress Skin: Grossly normal HEENT: PEERLA Neck: Supple, No JVD Cardiovascular: Regular Rate, Normal S1, Normal S2, No Murmurs Lungs: Clear to Auscultation, Normal Air Movement Abdomen: Decreased bowel sounds, clean anterior abdominal wound Neurological: Normal Speech, Strength at 5/5 X4 Ext, Cranial Nerves 3-12 NL, Reflexes 2+ Extremities: No Clubbing, No Cyanosis, No Edema Vascular: Normal Pulses Assessment 86-year-old with history of atrial fibrillation on Eliquis and presenting with complaining of abdominal pain. CAT scan suggested obturator hernia with small bowel obstruction. She is now status post day 6 exploratory laparotomy with hernia repair and small bowel resection for possible ischemia. She is tolerating regular diet. Diarrhea improved. Plan Follow consults recommendations May continue other home meds Stable for discharge home Current Medications Sig/Amber Start time Last Medication Dose Route Stop Time Status Admin Acetaminophen 650 MG Q6P PRN 07/23 0015 AC 07/29 PO 0355 Acetaminophen 1,000 MG Q6P PRN 07/23 0015 AC 07/29 IV 2113 Apixaban 2.5 MG BID 07/26 1315 AC 07/29 PO 2112 Atorvastatin Calcium 40 MG DAILY 07/23 1000 AC 07/29 PO 1049 Carvedilol 25 MG BID 07/27 2200 AC 07/29 PO 2112 Ketorolac 15 MG Q6-PRN PRN 07/27 1200 DC 07/29 Tromethamine IV 0636 Levothyroxine Sodium 0.05 MG DAILY AC 07/28 1600 AC 07/30 PO 0624 Lisinopril 2.5 MG DAILY 07/30 1000 AC PO Magnesium Oxide 400 MG DAILY 07/23 1000 AC 07/29 PO 1049 Melatonin 3 MG AT BEDTIME 07/28 2200 AC 07/29 PO 2112 Omeprazole 40 MG DAILY AC 07/24 0700 AC 07/30 PO 0624 Oxycodone/ 1 TAB Q8P PRN 07/29 1415 AC 07/30 Acetaminophen PO 0355 Simethicone 80 MG Q4P PRN 07/22 2345 AC PO Laboratory Tests 07/30 0700 Chemistry Sodium (137 - 145 mmol/L) 131 L Potassium (3.5 - 5.1 mmol/L) 4.9 Chloride (98 - 107 mmol/L) 100 Carbon Dioxide (22 - 30 mmol/L) 24 Anion Gap (5 - 16) 7 BUN (7 - 17 mg/dL) 21 H Creatinine (0.5 - 1.0 mg/dL) 1.0 Estimated GFR (>60 ml/min) 53 L BUN/Creatinine Ratio (7 - 25 %) 21.0 Hematology CBC w Diff NO MAN DIFF REQ WBC (4.8 - 10.8 /CUMM) 7.7 RBC (4.20 - 5.40 /CUMM) 3.52 L Hgb (12.0 - 16.0 G/DL) 10.5 L Hct (37 - 47 %) 31.0 L MCV (81.0 - 99.0 FL) 88.1 MCH (27.0 - 31.0 PG) 29.8 RDW (11.5 - 14.5 %) 14.0 Plt Count (130 - 400 /CUMM) 194 MPV (7.4 - 10.4 FL) 9.3 Gran % (42.2 - 75.2 %) 77.3 H Lymphocytes % (20.5 - 51.1 %) 13.0 L Monocytes % (1.7 - 9.3 %) 8.4 Eosinophils % (0 - 5 %) 1.0 Basophils % (0.0 - 2.0 %) 0.3 Absolute Granulocytes (1.4 - 6.5 /CUMM) 5.9 Absolute Lymphocytes (1.2 - 3.4 /CUMM) 1.0 L Absolute Monocytes (0.10 - 0.60 /CUMM) 0.6 Absolute Eosinophils (0.0 - 0.7 /CUMM) 0.1 Absolute Basophils (0.0 - 0.2 /CUMM) 0 PUBS MCHC (33.0 - 37.0 G/DL) 33.8 Vital Signs Date Time Temp Pulse Resp B/P Pulse O2 O2 Flow FiO2 Ox Delivery Rate 07/30 0044 97.4 94 20 120/70 96 Room Air 07/30 0000 96 07/29 2112 91 128/78 07/29 1630 97.6 91 18 128/78 97 Room Air 07/29 1048 112 130/60
[2016-07-30 08:39] VITALS: BP 149/71
[2016-07-30] MEDS ORDERED: SYNTHROID50 MCG PO (08:45)
[2016-07-30] MEDS ORDERED: CARVEDILOL25 M1 PO (08:45)
[2016-07-30] MEDS ORDERED: LASIX20 M1 PO (09:05)
--- NOTE | 2016-07-30 09:06 | PN- Cardiology ---
Subjective Subjective: Patient anxious to go home. Telemetry reviewed. Atrial fibrillation with intermittent pacing ventricular rate of around 100 Objective Vital Signs and I&Os Vital Signs Date Time Temp Pulse Resp B/P Pulse O2 O2 Flow FiO2 Ox Delivery Rate 07/30 0839 97.8 100 16 149/71 92 Room Air 07/30 0044 97.4 94 20 120/70 96 Room Air 07/30 0000 96 07/29 2112 91 128/78 07/29 1630 97.6 91 18 128/78 97 Room Air 07/29 1048 112 130/60 Intake & Output 07/30 1600 07/30 0800 07/30 0000 07/29 1600 07/29 0800 07/29 0000 Intake Total 240 240 675 240 480 Output Total 300 200 500 351 400 Balance -60 40 175 -111 80 Intake, Oral 240 240 675 240 480 Number 3 2 2 Bowel Movements Output, Stool 1 Output, Urine 300 200 500 350 400 Patient 114 lb 120 lb Weight Physical Exam: General exam patient comfortable Head normocephalic atraumatic Eyes sclera anicteric conjunctiva showed no pallor extraocular muscles were normal Chest lungs were clear bilaterally Heart irregular rhythm with a ventricle rate around 100 Abdomen soft no organomegaly Extremities no clubbing cyanosis or edema Neurological no gross motor or sensory deficits Current Medications: Current Medications Sig/Amber Start time Last Medication Dose Route Stop Time Status Admin Acetaminophen 650 MG Q6P PRN 07/23 0015 AC 07/29 PO 0355 Acetaminophen 1,000 MG Q6P PRN 07/23 0015 AC 07/29 IV 2113 Apixaban 2.5 MG BID 07/26 1315 AC 07/29 PO 211 Atorvastatin Calcium 40 MG DAILY 07/23 1000 AC 07/29 PO 1049 Carvedilol 25 MG BID 07/27 220 AC 07/29 PO 211 Ketorolac 15 MG Q6-PRN PRN 07/27 1200 DC 07/29 Tromethamine IV 0636 Levothyroxine Sodium 0.05 MG DAILY AC 07/28 1600 AC 07/30 PO 0624 Lisinopril 2.5 MG DAILY 07/30 1000 AC PO Magnesium Oxide 400 MG DAILY 07/23 1000 AC 07/29 PO 1049 Melatonin 3 MG AT BEDTIME 07/28 2199 AC 07/29 PO 211 Omeprazole 40 MG DAILY AC 07/24 0700 AC 07/30 PO 0624 Oxycodone/ 1 TAB Q8P PRN 07/29 1415 AC 07/30 Acetaminophen PO 0355 Simethicone 80 MG Q4P PRN 07/22 2345 AC PO Results Last 48 Hrs of Labs/Mics: Laboratory Tests 07/30/16 0700: Anion Gap 7, Estimated GFR 53 L, BUN/Creatinine Ratio 21.0, CBC w Diff NO MAN DIFF REQ, RBC 3.52 L, MCV 88.1, MCH 29.8, RDW 14.0, MPV 9.3, Gran % 77.3 H, Lymphocytes % 13.0 L, Monocytes % 8.4, Eosinophils % 1.0, Basophils % 0.3, Absolute Granulocytes 5.9, Absolute Lymphocytes 1.0 L, Absolute Monocytes 0.6, Absolute Eosinophils 0.1, Absolute Basophils 0, PUBS MCHC 33.8 07/29/16 0640: Anion Gap 9, Estimated GFR 60, BUN/Creatinine Ratio 22.2, TSH 1.460, Free T4 1.52, Thyroxine (T4) 6.9, CBC w Diff NO MAN DIFF REQ, RBC 3.53 L, MCV 88.2, MCH 30.0, RDW 13.6, MPV 9.9, Gran % 65.3, Lymphocytes % 17.4 L, Monocytes % 15.5 H , Eosinophils % 1.5, Basophils % 0.3, Absolute Granulocytes 3.2, Absolute Lymphocytes 0.9 L, Absolute Monocytes 0.8 H, Absolute Eosinophils 0.1, Absolute Basophils 0, PUBS MCHC 34.1 Assessment/Plan Assessment/Plan In summary this 86-year-old female has the following problems 1. Persistent atrial fibrillation on outpatient Eliquis 2. Sick sinus syndrome status post pacemaker last interrogation was in March demonstrated normal function 3. History of Takutsubo cardiomyopathy resolved most recent ejection fraction is 45-50% 4. Moderate mitral regurgitation and mild aortic stenosis with moderate to severe tricuspid regurgitation 5. Hypertension 6. Abdominal pain with obturator hernia causing small bowel obstruction now status post hernia repair and partial small bowel resection 7. Chronic diastolic heart failure stable 8. Demand ischemia Patient is anxious to go home and there is no cardiac reason to keep her in the hospital. I would reinitiate Lasix 20 mg every other day for one week then 20 mg every day. Maintain other medications the same. Continue telemetry? No
[2016-07-30 09:41] VITALS: BP 149/71
== END 2016-07-30 15:25 | disposition home health service (06) | DRG 330 ==
LOC: ENRESERVDT → ENRESERVTM → ERH 19:37 → ERHI 07-23 00:11 → 1NO 07-23 00:11 → ENPENDDIS 07-23 00:11 → 1NO 07-23 00:11
PROVIDERS: Emergency Medicine; Internal Medicine; Physician Assistant Surgical; Student in an Organized Health Care Education/Training Program; ADMIT Internal Medicine
PROC: 0WUF4JZ Supplement Abdominal Wall with Synthetic Substitute, Percutaneous Endoscopic Approach (ICD-10-PCS; principal; 2016-07-23)
PROC: 0DT80ZZ Resection of Small Intestine, Open Approach (ICD-10-PCS; 2016-07-23)
DX: K45.0 Other specified abdominal hernia with obstruction, without gangrene (principal); I50.32 Chronic diastolic (congestive) heart failure; I24.8 Other forms of acute ischemic heart disease; I51.81 Takotsubo syndrome; E87.1 Hypo-osmolality and hyponatremia
CPT/HCPCS: 1NSP; 36415; 74020; 74177; 81001; 82436; 87045; 88305; 88307; 93005; 93010; 96374; 96375; 97110-GO; 97116-GO; 97162-GP; 97530-GO; C1781; J0131; J0690; J1650; J2270; J2405; J7042

== ENCOUNTER 2016-08-03 18:53 | Inpatient (IN) | payer OTHER ==
[~2016-08-03] VITALS: Ht 165.1 cm; Wt 50.3 kg
[~2016-08-03 18:53] MED LIST changes: +ACETAMINOPHEN-1 EAC3 PO; +CALCIUM + D SO1 EACH PO; +CARVEDILOL25 M1 PO; +CRESTOR20 M2 PO; +ELIQUIS2.5 M1 PO; +FUROSEMIDE20 M1 PO; +GAS RELIEF80 M1 PO; +LASIX20 M1 PO; +LEVOXYL75 MCG PO; +LISINOPRIL2.5 M1 PO; +MAGNESIUM400 M1 PO; +PHARBETOL325 MG PO; +SYNTHROID50 MCG PO; +SYNTHROID75 MCG PO
[2016-08-03 20:16] LABS: ABSOLUTE BASOPHIL COUNT 0 /CUMM (0.0-0.2); ABSOLUTE EOSINOPHIL COUNT 0.1 /CUMM (0.0-0.7); ABSOLUTE GRANULOCYTE CT 11.5 /CUMM (1.4-6.5); ABSOLUTE LYMPH COUNT 1.2 /CUMM (1.2-3.4); ABSOLUTE MONOCYTE COUNT 0.7 /CUMM (0.10-0.60); BASOPHIL % 0.2 % (0.0-2.0); EOSINOPHIL % 0.4 % (0-5); GRANULOCYTE % 85.4 % (42.2-75.2); HEMATOCRIT 34.3 % (37-47); MEAN CORPUSCULAR HGB 29.5 PG (27.0-31.0); MEAN CORPUSCULAR HGB CONC 33.1 G/DL (33.0-37.0); MEAN CORPUSCULAR VOLUME 88.9 FL (81.0-99.0); MEAN PLATELET VOLUME 7.9 FL (7.4-10.4); RBC DISTRIBUTION WIDTH 13.9 % (11.5-14.5); RED BLOOD CELL CT 3.86 /CUMM (4.20-5.40)
--- NOTE | 2016-08-03 20:22 | ED GI/GU/ABDOMINAL COMPLAINT ---
History of Present Illness General Chief Complaint: General Adult Stated Complaint: WOUND DISCHARGE Source: patient, family, old records Exam Limitations: no limitations Vital Signs & Intake/Output Vital Signs & Intake/Output Vital Signs Date Time Temp Pulse Resp B/P Pulse O2 O2 Flow FiO2 Ox Delivery Rate 08/04 0911 84 122/80 08/04 0911 84 122/80 08/04 0635 98.5 67 18 118/60 94 Room Air 08/04 0047 97.8 91 18 126/68 95 Room Air 08/03 2358 96.1 93 18 117/67 95 Room Air 08/03 2140 96.5 94 18 126/77 93 Room Air 08/03 1917 96.1 120 20 123/64 95 Room Air ED Intake and Output 08/04 0000 08/03 1200 Intake Total Output Total Balance Patient 111 lb Weight Allergies Coded Allergies: heparin (Intermediate, LEAKED INTO TISSUE AND CAUSED EXTREME PAIN 08/03/16) Per antibiotic order sheet. -- Ruben 12/03/12 clarithromycin (UNKNOWN PER PT DAUGHTER BELIEVES IT WAS EMYCIN - GI UPSET ) erythromycin base (GI UPSET 08/03/16) gabapentin (DIZZY GI UPSET 08/03/16) tramadol (DIZZY, GI UPSET 08/03/16) Reconcile Medications Acetaminophen (Pharbetol) 325 MG TABLET 1-2 TAB PO PRN PAIN (Reported) Acetaminophen With Codeine (Acetaminophen-Cod #3 Tablet) 300 MG-30 MG TABLET 0.5-1 TAB PO BID PRN PAIN (Reported) Apixaban (Eliquis) 2.5 MG TABLET 1 TAB PO BID BLOOD THINNER (Reported) Calcium Carb/Vitamin D3/Vit K1 (Calcium + D Soft Chewable Tab) (Unknown Strength ) TAB.CHEW (Unknown Dose) PO DAILY SUPPLEMENT (Reported) Carvedilol 25 MG TABLET 1 TAB PO BID HEART Furosemide (Lasix) 20 MG TABLET 1 TAB PO Q48 HEART Levothyroxine Sodium (Synthroid) 50 MCG TABLET 1 TAB PO DAILY AC HYPOTHYROIDISM Lisinopril 2.5 MG TABLET 1 TAB PO DAILY BP (Reported) Magnesium Oxide (Magnesium) 400 MG CAPSULE 1 CAP PO DAILY SUPPLEMENT ( Reported) Rosuvastatin Calcium (Crestor) 20 MG TABLET 1 TAB PO QPM CHOLESTEROL ( Reported) Simethicone (Gas Relief) (Unknown Strength) TAB.CHEW (Unknown Dose) PO PRN GAS (Reported) Triage Note: TRIAGE: PT TO ER WITH FAMILY C/C WOUND DEHISENCE. STATES HAD ABDOMINAL HERNIA REPAIR LAST FRIDAY WITH DR BONNER. STATES SHE WAS COMING INTO ER FOR REDNESS AROUND THE ERIKA AND INCREASED PAINS BUT WHEN SHE SAT UP THE WOUND OPENED UP. DAUGHTER APPLIED STERILE DRESSINGS AND BROUGHT PT DIRECT TO ER. DAUGHTER STATES "IT LOOKED LIKE DIARRHEA SHOOTING OUT OF IT AND THEN SOME BLOODY DRAINAGE". PT ON ELIQUIS. PT DENIES ANY PAIN AT PRESENT. Triage Nurses Notes Reviewed? yes ? N Is pt currently ? No HPI: 86 yo female with co central abdominal pain since yesterday. she is 10 days sp obturator hernia repair with SBO and small segment of small bowel rescection by dr Tubbs. Pt with history of persistent atrial fibrillation on Eliquis, Takutsubo cardiomyopathy resolved, hypertension, sinus syndrome status post pacemaker, mitral regurgitation and mild aortic stenosis, who now presented with abdominal pain. today the central abdominal wound started to get more red and swollen, moderately painful to touch, started drainaing dark brown purulent fluid, foul smelling. no fever, no vomiting. she overall feels well without systemic signs of infection, chills, AMS. sx are moderate. (BHUMIKA SEXTON) Past History Travel History Traveled to [place] past 21 day No Medical History Any Pertinent Medical History? see below for history Neurological: NONE EENT: NONE Cardiovascular: AFIB, hypertension, RCW PACEMAKER Respiratory: NONE Gastrointestinal: GERD Hepatic: NONE Renal: NONE Musculoskeletal: NONE Psychiatric: NONE Endocrine: hypothyroidism Blood Disorders: NONE Cancer(s): NONE History of MRSA: No History of VRE: No History of CDIFF: No Tetanus Vaccine: 06/05/15 Surgical History Surgical History: left hip surgery, OBTURATOR HERNIA WITH SMALL BOWEL OBSTRUCTION AND INCARCERATION WITH SMALL SEGMENT OF SMALL BOWEL RESECTION Psychosocial History Who do you live with Patient/Self Services at Home None What is your primary language [place] Tobacco Use: Quit >30 days ago ETOH Use: denies use Illicit Drug Use: denies illicit drug use Family History Hx Contributory? No (BHUMIKA SEXTON) Review of Systems Review of Systems Constitutional: Reports: see HPI. EENTM: Reports: no symptoms. Respiratory: Reports: no symptoms. Cardiovascular: Reports: no symptoms. Genitourinary: Reports: no symptoms. Musculoskeletal: Reports: no symptoms. Skin: Reports: no symptoms. Neurological/Psychological: Reports: no symptoms. Hematologic/Endocrine: Reports: no symptoms. Immunologic/Allergic: Reports: no symptoms. All Other Systems: Reviewed and Negative (BHUMIKA SEXTON) Physical Exam Physical Exam General Appearance: well developed/nourished Gastrointestinal: normal bowel sounds Comments: Well-developed well-nourished no apparent distress. HEENT: Atraumatic, extraocular motion intact Neck: Supple, no lymphadenopathy Back: Nontender Heart: Irregularly irregular Respiratory: No respiratory distress, clear to auscultation bilateral Abdomen: Midline incision approximately 5-6 cm with severe surrounding erythema and pressure with induration, there is foul-smelling dark brown purulent discharge spontaneously that is worse with palpation of the area. There is mild surrounding generalized abdominal tenderness. Bowel sounds are normal. Extremities: No edema, full range of motion Neuro: Alert and oriented x3 Psych: Mood affect normal, normal memory normal judgment. Skin: Warm and dry, no rash on exposed skin Core Measures ACS in differential dx? No Severe Sepsis Present: Yes BC x2: Yes Lactic Acid x2: Yes IV ABX Broad Spectrum: Yes NS/LR Started: Yes Septic Shock Present: No (BHUMIKA SEXTON) Progress Differential Diagnosis: AAA, AMI, appendicitis, biliary colic, bowel obstruction , colon cancer, cholecystitis, diverticulitis, ectopic , endometritis, esophageal varices, gastritis, hepatitis, hernia, hemorrhoids, ischemic bowel, inflamm bowel dis, intrauterine , kidney stone, Serenity-José Miguel tear, ovarian cyst, ovarian torsion, pancreatitis, PID/cervicitis, peptic ulcer, PUD/ GERD, perforated viscous, SBO, threatened AB, UTI/pyelo Plan of Care: Orders Procedure Date/time Status Regular Diet 08/04 B Active CBC WITHOUT DIFFERENTIAL 08/04 06 Complete BASIC ELECTROLYTES PLUS BUN&CR 08/04 06 Complete Wound Care/Dressing 08/04 011 Active Pain Treatment and Response 08/04 011 Active Vital Signs 08/04 36 Active Teach/Educate 08/04 36 Active Nutritional Intake, Monitor 08/04 36 Active Isolation 08/04 36 Active Intake & Output 08/04 36 Active Patient Care Conference 08/04 36 Active Activity/Ambulation 02/26 0037 Active Admit to inpatient 08/03 2330 Active Pathway - chart 08/03 2240 Active Patient Data 08/03 2240 Active Code Status 08/03 2240 Active TRUNK AREA CULTURE 08/03 2218 Active Add-on Test (ER Only) 08/03 2102 Active LACTIC ACID 08/03 2006 Complete BLOOD CULTURE 08/03 1936 Active TROPONIN LEVEL 08/03 1936 Complete PARTIAL THROMBOPLASTIN TIME 08/03 1936 Complete PROTHROMBIN TIME 08/03 1936 Complete COMPREHENSIVE METABOLIC PANEL 08/03 1936 Complete CBC WITHOUT DIFFERENTIAL 08/03 1936 Complete EKG 08/03 1927 Active VTE Mechanical Prophylaxis 08/03 UNK Active Vital Signs 08/03 UNK Active Intake & Output 08/03 UNK Active Activity/Ambulation 08/03 UNK Active Current Medications Sig/Amber Start time Last Medication Dose Stop Time Status Admin Furosemide 20 MG Q48 08/05 1000 AC (Lasix) Ceftriaxone Sodium 1,000 MG 2200 08/04 2200 CAN (Rocephin) Atorvastatin Calcium 80 MG 1700 08/04 1700 AC (Lipitor) Oxycodone/ 2 TAB Q4P PRN 08/03 2300 AC Acetaminophen (Percocet) Acetaminophen 650 MG Q6PRN PRN 08/03 2245 AC (Tylenol) Docusate Sodium 100 MG DAILY NEEDED PRN 08/03 2245 AC (Colace) Ondansetron HCl 4 MG Q8P PRN 08/03 2245 AC (Zofran) Oxycodone/ 1 TAB Q4P PRN 08/03 2245 AC Acetaminophen (Percocet) Laboratory Tests 08/04/16 0725: Anion Gap 5, Estimated GFR > 60, BUN/Creatinine Ratio 12.9, CBC w Diff NO MAN DIFF REQ, RBC 3.68 L, MCV 88.8, MCH 30.1, RDW 14.1, MPV 8.1, Gran % 79.9 H, Lymphocytes % 13.6 L, Monocytes % 5.5, Eosinophils % 0.7, Basophils % 0.3, Absolute Granulocytes 7.5 H, Absolute Lymphocytes 1.3, Absolute Monocytes 0.5, Absolute Eosinophils 0.1, Absolute Basophils 0, PUBS MCHC 33.9 08/03/162241: Lactic Acid Cancelled 08/03/162006: Anion Gap 6, Estimated GFR > 60, BUN/Creatinine Ratio 15.0, Glucose 98, Lactic Acid 1.1, Calcium 8.5, Total Bilirubin 0.5, AST 16, ALT 23, Alkaline Phosphatase 95, Troponin I < 0.01, Total Protein 5.4 L, Albumin 2.6 L, Globulin 2.8, Albumin/Globulin Ratio 0.9 L, PT 15.4 H, INR 1.47 H, APTT 37, CBC w Diff NO MAN DIFF REQ, RBC 3.86 L, MCV 88.9, MCH 29.5, RDW 13.9, MPV 7.9, Gran % 85.4 H , Lymphocytes % 9.2 L, Monocytes % 4.8, Eosinophils % 0.4, Basophils % 0.2, Absolute Granulocytes 11.5 H, Absolute Lymphocytes 1.2, Absolute Monocytes 0.7 H, Absolute Eosinophils 0.1, Absolute Basophils 0, PUBS MCHC 33.1 08/03/161941: Lactic Acid Cancelled Microbiology 08/03 2208 TRUNK: Culture & Sensitivity - RES 08/03 2208 TRUNK: Gram Stain - RES 08/03 2024 BLOOD: Blood Culture - RES 08/03 2006 BLOOD: Blood Culture - RES Initial ED EKG: rate (98), AFIB, nonspecific ST T wave chg (inferior, lateral), ST depression (septal, lateral) Prior EKG: unchanged Rhythm Strip: atrial fibrillation Comments: IV fluids started, Rocephin and Flagyl given, blood cultures and lactic acid obtained, patient is stable at this time. We will CT the abdomen and pelvis to evaluate for deep space collection or communication with the bowel. She is given 2 mg of morphine IV along with Rocephin and Flagyl intravenously. Patient reevaluated, she is comfortable and feeling well. Discussed with Dr. Chuckie Bonner, reviewed CT scan findings, recommends admission, IV antibiotics, taking out the erika to allow for drainage, culture obtained of the wound. Patient seen by surgical RASHEL Salazar who has attended to the above recommendations. (BHUMIKA SEXTON) Departure Departure Disposition: STILL A PATIENT Condition: Stable Clinical Impression Primary Impression: Postoperative wound infection Qualifiers: Encounter type: initial encounter Qualified Code: T81.4XXA - Infection following a procedure, initial encounter Referrals: ELIZABETH DONIS,TREVER Servin (PCP) Departure Forms: Customer Survey General Discharge Information Admission Note Spoke With: DIEGO BONNER MD Documentation of Exam: Documentation of any treatments & extenuating circumstances including Concerns Regarding Discharge (functional status, medication knowledge or non-compliance, living conditions, etc.) that warrant an admission rather than observation: pt with postoperative wound infection. Requires staple removal to allow for drainage, culture of the wound taken, blood cultures taken, IV antibiotics started in the ER and he will need to be continued for several days. She may need a superficial washout in the next 1-2 days. She is a poor candidate for treatment as outpatient. (LIZ KISER,BHUMIKA) PA/MANAGER ENDOSCOPY Co-Sign Statement Statement: ED Attending supervision documentation- [X] I saw and evaluated the patient. I have also reviewed all the pertinent lab results and diagnostic results. I agree with the findings and the plan of care as documented in the PA's/MANAGER ENDOSCOPY's documentation. [X] I have reviewed the ED Record and agree with the PA's/MANAGER ENDOSCOPY's documentation. [] Additions or exceptions (if any) to the PAs/MANAGER ENDOSCOPY's note and plan are summarized below: [] (OMARI DONIS,CECI Soares)
[2016-08-03 20:27] LABS: PT 15.4 SEC (9.4-12.5); PTT 37 SEC (25-37)
[2016-08-03 20:43] LABS: PLATELET COUNT 321 /CUMM (130-400); WHITE BLOOD CELL COUNT 13.4 /CUMM (4.8-10.8)
--- NOTE | 2016-08-03 21:42 | CT SCAN REPORT ---
EXAMINATION: CT ABDOMEN AND PELVIS WITHOUT CONTRAST CLINICAL INFORMATION: An 86-year-old female, 10 days postop obturator hernia repair and bowel resection, presented with wound dehisced. Suspected deep infection. COMPARISON: CT of the abdomen and pelvis done on 07/22/2016. TECHNIQUE: Multidetector volumetric imaging was performed from the superior aspect of the liver through the pubic symphysis. Sagittal and coronal reformatted images were obtained on the technologist's workstation. DLP: 227.78 mGy-cm. FINDINGS: LUNG BASES: Interval development of small bilateral pleural effusions, compressive atelectatic changes at both lung bases are noted. There is a large posterior mediastinal hiatal hernia present, appear improved since prior study. Heterogeneous calcification is noted along the left hemidiaphragm and the left lung base, unchanged. LIVER, GALLBLADDER, AND BILIARY TREE: The liver is normal in size, shape, and attenuation. No focal hepatic lesion or biliary ductal dilatation is present. The gallbladder is unremarkable with no evidence of radiopaque gallstones, gallbladder wall thickening, or obvious pericholecystic inflammatory changes. PANCREAS: Appear atrophied, unchanged. SPLEEN: Unremarkable. ADRENAL GLANDS: Unremarkable. KIDNEYS AND URETERS: The kidneys are normal in size, shape, and attenuation. No hydronephrosis, hydroureter, or calculi seen. No perinephric stranding. BLADDER: Unremarkable. GASTROINTESTINAL TRACT: Previously documented left obturator hernia producing distal small bowel obstruction shows interval resolution. Currently, the small as well as the large bowel loops appear normal in caliber with evidence of rectal gas. ABDOMINAL WALL: There are surgical erika identified at mid to lower abdomen at midline. There is a nonspecific subcutaneous soft tissue density with multiple tiny air pockets identified underneath the surgical erika. The finding is nonspecific, may represent postsurgical seroma, hematoma as well as developing phlegmon and/or abscess formation. Needle aspiration with or without image guidance may be considered for further clarification, if clinically appropriate. LYMPH NODES: Normal. VASCULAR: Extensive diffuse atherosclerotic disease is noted within the aorta and its branches including the cerebral arteries. PELVIC VISCERA: Small amount of free fluid is noted within the right lower posterior hemipelvis, likely represent postsurgical changes. There is no free intraperitoneal air visualized. There is no pelvic mass present. Previously documented left obturator hernia shows interim surgical resolution. OSSEOUS STRUCTURES: Previously documented compression fracture of T10 through T12 vertebral bodies and mild compression fracture of L3 vertebral bodies appears stable. Postop changes of Gamma Nail is noted within the visualized included part of the left proximal femur, appear intact. IMPRESSION: 1. Interval development of bilateral small pleural effusions and nonspecific bibasilar airspace disease is noted since prior preoperative CT scan dated 07/22/2016. 2. Interval resolution of left-sided obturator hernia and small bowel obstruction since the prior study. 3. Underneath the surgical erika at midline, within the anterior abdominal wall, there is nonspecific soft tissue density and air pockets visualized, likely represent postoperative seroma, hematoma. Possibility of subtle developing phlegmon and/or abscess may also have similar in appearance. Needle aspiration with or without image guidance may be considered for further clarification, if clinically appropriate. 4. Small amount of free fluid within the dependent right posterior hemipelvis, likely represent postsurgical change. 5. No discrete focal fluid collection suggestive of abscess formation is identified within the peritoneal cavity. 6. Stable appearance of multilevel compression fractures, unchanged since 07/22/2016.
--- NOTE | 2016-08-03 22:38 | History & Physical ---
LIZETTE OLIVAS 08/03/16 2237: General Information and HPI Source of Information: patient, family, old records Exam Limitations: no limitations History of Present Illness: Patient is a 86yo F known to surgery services that was recently discharged from [facility] after having obtruator hernia repair with open small bowel resection. Patient had been progressing well until she and her family noticed this morning that the area around her midline incision had become swollen and red. After sitting up out of a chair she had sudden foul smelling purulent drainage from the incision site. At that point patient was brought to [facility] ED. CT scan shows fluid collection in soft tissue underlying gerald without intraabdominal fluid collection or evidence of entercutaneous fistula. Patient has not furthr c/o. Denies CP/SOB. Allergies/Medications Allergies: Coded Allergies: heparin (Intermediate, LEAKED INTO TISSUE AND CAUSED EXTREME PAIN 08/03/16) Per antibiotic order sheet. -- Ruben 12/03/12 clarithromycin (UNKNOWN PER PT DAUGHTER BELIEVES IT WAS EMYCIN - GI UPSET ) erythromycin base (GI UPSET 08/03/16) gabapentin (DIZZY GI UPSET 08/03/16) tramadol (DIZZY, GI UPSET 08/03/16) Home Med list Acetaminophen (Pharbetol) 325 MG TABLET 1-2 TAB PO PRN PAIN (Reported) Acetaminophen With Codeine (Acetaminophen-Cod #3 Tablet) 300 MG-30 MG TABLET 0.5-1 TAB PO BID PRN PAIN (Reported) Apixaban (Eliquis) 2.5 MG TABLET 1 TAB PO BID BLOOD THINNER (Reported) Calcium Carb/Vitamin D3/Vit K1 (Calcium + D Soft Chewable Tab) (Unknown Strength ) TAB.CHEW (Unknown Dose) PO DAILY SUPPLEMENT (Reported) Carvedilol 25 MG TABLET 1 TAB PO BID HEART Furosemide (Lasix) 20 MG TABLET 1 TAB PO Q48 HEART Levothyroxine Sodium (Synthroid) 50 MCG TABLET 1 TAB PO DAILY AC HYPOTHYROIDISM Lisinopril 2.5 MG TABLET 1 TAB PO DAILY BP (Reported) Magnesium Oxide (Magnesium) 400 MG CAPSULE 1 CAP PO DAILY SUPPLEMENT ( Reported) Rosuvastatin Calcium (Crestor) 20 MG TABLET 1 TAB PO QPM CHOLESTEROL ( Reported) Simethicone (Gas Relief) (Unknown Strength) TAB.CHEW (Unknown Dose) PO PRN GAS (Reported) Past History Travel History Traveled to [place] past 21 day No Medical History Neurological: NONE EENT: NONE Cardiovascular: AFIB, hypertension, [employer] PACEMAKER Respiratory: NONE Gastrointestinal: GERD Hepatic: NONE Renal: NONE Musculoskeletal: NONE Psychiatric: NONE Endocrine: hypothyroidism Blood Disorders: NONE Cancer(s): NONE History of MRSA: No History of VRE: No History of CDIFF: No Tetanus Vaccine: 06/05/15 Surgical History Surgical History: left hip surgery Past Family/Social History Psychosocial History Who Do You Live With? child Services at Home: None Primary Language: Burmese ETOH Use: denies use Illicit Drug Use: denies illicit drug use Functional Ability ADLs Independent: dressing, eating, toileting, bathing. Ambulation: cane IADLs Independent: shopping, housework, finances, food prep, telephone, transportation , medication admin. Review of Systems Review of Systems Constitutional: Denies: chills, fever, malaise. EENTM: Reports: no symptoms. Cardiovascular: Denies: chest pain, palpitations. Respiratory: Denies: cough, short of breath. GI: Reports: see HPI. Genitourinary: Denies: dysuria, frequency. Musculoskeletal: Reports: no symptoms. Skin: Reports: see HPI. Exam & Diagnostic Data Last 24 Hrs of Vital Signs/I&O Vital Signs Date Time Temp Pulse Resp B/P Pulse O2 O2 Flow FiO2 Ox Delivery Rate 08/03 2140 96.5 94 18 126/77 93 Room Air 08/03 191 96.1 120 20 123/64 95 Room Air Physical Exam General Appearance Alert, Oriented X3, Cooperative, No Acute Distress HEENT Atraumatic, EOMI, Mucous Membr. moist/pink Cardiovascular Regular Rate Lungs Clear to Auscultation, Normal Air Movement Abdomen Soft, No Masses, Midline incision red and swollen with purulent foul smelling drainage easily expressed. No feculent appearing drainage. Neurological Normal Speech, Strength at 5/5 X4 Ext Extremities No Cyanosis, No Edema Last 24 Hrs of Labs/Pavan: Laboratory Tests 08/03/162241: Lactic Acid Cancelled 08/03/162006: Anion Gap 6, Estimated GFR > 60, BUN/Creatinine Ratio 15.0, Glucose 98, Lactic Acid 1.1, Calcium 8.5, Total Bilirubin 0.5, AST 16, ALT 23, Alkaline Phosphatase 95, Troponin I < 0.01, Total Protein 5.4 L, Albumin 2.6 L, Globulin 2.8, Albumin/Globulin Ratio 0.9 L, PT 15.4 H, INR 1.47 H, APTT 37, CBC w Diff NO MAN DIFF REQ, RBC 3.86 L, MCV 88.9, MCH 29.5, RDW 13.9, MPV 7.9, Gran % 85.4 H , Lymphocytes % 9.2 L, Monocytes % 4.8, Eosinophils % 0.4, Basophils % 0.2, Absolute Granulocytes 11.5 H, Absolute Lymphocytes 1.2, Absolute Monocytes 0.7 H, Absolute Eosinophils 0.1, Absolute Basophils 0, PUBS MCHC 33.1 08/03/162: Lactic Acid Cancelled Microbiology 08/03 2208 TRUNK: Culture & Sensitivity - RECD 08/03 2208 TRUNK: Gram Stain - RECD 08/03 2024 BLOOD: Blood Culture - RECD 08/03 2006 BLOOD: Blood Culture - RECD Diagnostic Data Other Results EXAM TYPE: CAT - CT ABD & PELVIS W/O IV CONTRAS EXAMINATION: CT ABDOMEN AND PELVIS WITHOUT CONTRAST CLINICAL INFORMATION: An 86-year-old female, 10 days postop obturator hernia repair and bowel resection, presented with wound dehisced. Suspected deep infection. COMPARISON: CT of the abdomen and pelvis done on 07/22/2016. TECHNIQUE: Multidetector volumetric imaging was performed from the superior aspect of the liver through the pubic symphysis. Sagittal and coronal reformatted images were obtained on the technologist's workstation. DLP: 227.78 mGy-cm. FINDINGS: LUNG BASES: Interval development of small bilateral pleural effusions, compressive atelectatic changes at both lung bases are noted. There is a large posterior mediastinal hiatal hernia present, appear improved since prior study. Heterogeneous calcification is noted along the left hemidiaphragm and the left lung base, unchanged. LIVER, GALLBLADDER, AND BILIARY TREE: The liver is normal in size, shape, and attenuation. No focal hepatic lesion or biliary ductal dilatation is present. The gallbladder is unremarkable with no evidence of radiopaque gallstones, gallbladder wall thickening, or obvious pericholecystic inflammatory changes. PANCREAS: Appear atrophied, unchanged. SPLEEN: Unremarkable. ADRENAL GLANDS: Unremarkable. KIDNEYS AND URETERS: The kidneys are normal in size, shape, and attenuation. No hydronephrosis, hydroureter, or calculi seen. No perinephric stranding. BLADDER: Unremarkable. GASTROINTESTINAL TRACT: Previously documented left obturator hernia producing distal small bowel obstruction shows interval resolution. Currently, the small as well as the large bowel loops appear normal in caliber with evidence of rectal gas. ABDOMINAL WALL: There are surgical gerald identified at mid to lower abdomen at midline. There is a nonspecific subcutaneous soft tissue density with multiple tiny air pockets identified underneath the surgical gerald. The finding is nonspecific, may represent postsurgical seroma, hematoma as well as developing phlegmon and/or abscess formation. Needle aspiration with or without image guidance may be considered for further clarification, if clinically appropriate. LYMPH NODES: Normal. VASCULAR: Extensive diffuse atherosclerotic disease is noted within the aorta and its branches including the cerebral arteries. PELVIC VISCERA: Small amount of free fluid is noted within the right lower posterior hemipelvis, likely represent postsurgical changes. There is no free intraperitoneal air visualized. There is no pelvic mass present. Previously documented left obturator hernia shows interim surgical resolution. OSSEOUS STRUCTURES: Previously documented compression fracture of T10 through T12 vertebral bodies and mild compression fracture of L3 vertebral bodies appears stable. Postop changes of Gamma Nail is noted within the visualized included part of the left proximal femur, appear intact. IMPRESSION: 1. Interval development of bilateral small pleural effusions and nonspecific bibasilar airspace disease is noted since prior preoperative CT scan dated 07/22/2016. 2. Interval resolution of left-sided obturator hernia and small bowel obstruction since the prior study. 3. Underneath the surgical gerald at midline, within the anterior abdominal wall, there is nonspecific soft tissue density and air pockets visualized, likely represent postoperative seroma, hematoma. Possibility of subtle developing phlegmon and/or abscess may also have similar in appearance. Needle aspiration with or without image guidance may be considered for further clarification, if clinically appropriate. 4. Small amount of free fluid within the dependent right posterior hemipelvis, likely represent postsurgical change. 5. No discrete focal fluid collection suggestive of abscess formation is identified within the peritoneal cavity. 6. Stable appearance of multilevel compression fractures, unchanged since 07/22/2016. Assessment/Plan Assessment: 86yo F with Midline wound infection. Gerald x2 was removed and large amount of purulent fluid, foul smelling drained bedside. Cultures obtained. Wound was packed with 1" gauze packing. - admit to Dr. Edgard Bonner, floor - IV Rocephin and Flagyl - Pain control - home meds including eliquis - ALPS - regular diet - cbc, bep in a.m. - OOB as desired - Discussed with Dr. Bonner As Ranked By This Provider Problem List: 1. Postoperative wound infection Qualifiers Encounter type: initial encounter Qualified Code: T81.4XXA - Infection following a procedure, initial encounter Core Measures/Miscellaneous Acute Coronary Syndrome ACS Diagnosis: No Cerebrovascular Accident CVA/TIA Diagnosis: No Congestive Heart Failure CHF Diagnosis: No Venous Thromboembolism VTE Risk Factors: Acute medical illness, Age > 40 VTE Prophylaxis Ordered Inpt: Mech & Pharm No Mech VTE prophylaxis d/t: No contraindications No VTE Pharm Prophylaxis d/t: No contraindications VTE Diagnosis: No VTE Type: NONE VTE Confirmed by (Test): NONE Severe Sepsis Severe Sepsis Present: No Septic Shock Septic Shock Present: No Miscellaneous Documentation Attending Case Discussed With: Dr. Edgard Bonner Primary Care Physician: TREVER JOHNSON MD Patient sees these Specialists Unknown Level of Patient Care: General Medicine BRYAN KATHERINE RAMIREZ 08/04/16 1557: Attending MD Review Statement Attending Statement Attending MD Statement: examined this patient, discuss w/resident/PA/PRACTICING DERMATOLOGIST, agreed w/resident/PA/PRACTICING DERMATOLOGIST, discussed with family, reviewed images Attending Assessment/Plan: s/p Open SBR. Presented with abodminal pain and a wound infection. CT shows subQ collection in midline wound. Wound opened and packed. Patient felt immediate relief and currently feels great. WBC now normal. Change dressing again tonight. Remove all gerald. If doing well may be D/C'd in AM with wound care.
[2016-08-04 00:47] VITALS: BP 126/68
[2016-08-04 06:35] VITALS: BP 118/60
--- NOTE | 2016-08-04 08:04 | PN- Student ---
ARRON REED 08/04/16 0752: Subjective Subjective: Patient reports she had no events overnight and that it was the first night she has slept well in a while. She states after the wound opened up and drained she no longer had any abdominal pain. She denies any pain, chest pain, shortness of breath, fever/chills, nausea, vomiting, or dysuria. Objective Objective: Vitals: BP: 118/60 Pulse: 84 Resp: 18 Temp: 98.5F Physical Exam: General: Well appearing, in no acute distress. Alert and oriented to person place and time. Head: Normocephalic, atraumatic. Eyes: PERRL, EOMI. Cardiac: Irregular, normal S1 and S2. No murmurs rubs or gallops. Pulmonary: Clear to auscultation bilaterally, no wheezes, rhonci or rales. Abdomen: Incision site covered by dressing. Dressing has dark red bloody discharge on the inferior aspect of the incsion. Gerald still in on superior portion. Moderate erythema around incision site. Area is moist with dark red and purulent drainage on packing and dressing. Packing material removed. New packing placed with no active drainage. New dressing applied. Non-distended, non-tender to palpation. Tympanic to percussion, normoactive bowel sounds. Extremities: Bilateral lower extremities negative edema, or calf tenderness, 2+ dorsalis pedis pulses. Results Results: Laboratory Tests 08/04/16 0725: Sodium Pending, Potassium Pending, Chloride Pending, Carbon Dioxide Pending, Anion Gap Pending, BUN Pending, Creatinine Pending, BUN/Creatinine Ratio Pending , CBC w Diff Pending, WBC Pending, RBC Pending, Hgb Pending, Hct Pending, MCV Pending, MCH Pending, RDW Pending, Plt Count Pending, MPV Pending, PUBS MCHC Pending 08/03/16 2242: Lactic Acid Cancelled 08/03/162006: Anion Gap 6, Estimated GFR > 60, BUN/Creatinine Ratio 15.0, Glucose 98, Lactic Acid 1.1, Calcium 8.5, Total Bilirubin 0.5, AST 16, ALT 23, Alkaline Phosphatase 95, Troponin I < 0.01, Total Protein 5.4 L, Albumin 2.6 L, Globulin 2.8, Albumin/Globulin Ratio 0.9 L, PT 15.4 H, INR 1.47 H, APTT 37, CBC w Diff NO MAN DIFF REQ, RBC 3.86 L, MCV 88.9, MCH 29.5, RDW 13.9, MPV 7.9, Gran % 85.4 H , Lymphocytes % 9.2 L, Monocytes % 4.8, Eosinophils % 0.4, Basophils % 0.2, Absolute Granulocytes 11.5 H, Absolute Lymphocytes 1.2, Absolute Monocytes 0.7 H, Absolute Eosinophils 0.1, Absolute Basophils 0, PUBS MCHC 33.1 08/03/161941: Lactic Acid Cancelled Microbiology 08/03 2208 TRUNK: Culture & Sensitivity - RECD 08/03 2208 TRUNK: Gram Stain - RECD 08/03 2024 BLOOD: Blood Culture - RECD 08/03 2006 BLOOD: Blood Culture - RECD Assessment/Plan Assessment: Patient is an 86 year old female with a history of afib, chf, htn, and recent incarcerated obturator hernia. Patient is s/p obturator herniorrhaphy with partial small bowel resection who returns to hospital with purulent incisional discharge. Plan: -Discontinue Flagyl and Cetriaxone. -Initiate Unasyn. -Continue diet as tolerated. -Continue home meds as indicated. -Encourage out of bed ambulation. -Continue ALPs. -WBC down from 13.4>9.4, otherwise stable. -Packing and dressing changed. -Change packing and dressing again this afternoon. Will discuss the above with PA surgical team. Arron KISER-S2 SONIDO PASTOR 08/04/16 0839: Resident Review Statement Resident Statement: examined this patient Other Findings: Agree with above assessment and plan. Patient seen and examined. States that she feels much better. Tolerating diet and voiding. Abdomen: packing and dressing saturated, changed at bedside without further active drainage. Will initiate BID packing changes. Dr. Barba to see patient this afternoon. Continue unasyn. This case was discussed with attending.
[2016-08-04 08:25] LABS: ABSOLUTE BASOPHIL COUNT 0 /CUMM (0.0-0.2); ABSOLUTE EOSINOPHIL COUNT 0.1 /CUMM (0.0-0.7); ABSOLUTE GRANULOCYTE CT 7.5 /CUMM (1.4-6.5); ABSOLUTE LYMPH COUNT 1.3 /CUMM (1.2-3.4); ABSOLUTE MONOCYTE COUNT 0.5 /CUMM (0.10-0.60); BASOPHIL % 0.3 % (0.0-2.0); EOSINOPHIL % 0.7 % (0-5); GRANULOCYTE % 79.9 % (42.2-75.2); HEMATOCRIT 32.7 % (37-47); MEAN CORPUSCULAR HGB 30.1 PG (27.0-31.0); MEAN CORPUSCULAR HGB CONC 33.9 G/DL (33.0-37.0); MEAN CORPUSCULAR VOLUME 88.8 FL (81.0-99.0); MEAN PLATELET VOLUME 8.1 FL (7.4-10.4); PLATELET COUNT 291 /CUMM (130-400); RBC DISTRIBUTION WIDTH 14.1 % (11.5-14.5); RED BLOOD CELL CT 3.68 /CUMM (4.20-5.40); WHITE BLOOD CELL COUNT 9.4 /CUMM (4.8-10.8)
--- NOTE | 2016-08-04 13:12 | Cons- Medical ---
General Information and HPI Consulting Request Date of Consult: 08/04/16 Requested By: LUCIANO DONIS,ANN Patel Reason for Consult: Medical comanagement Source of Information: patient, old records Exam Limitations: no limitations History of Present Illness: 86-year-old female with history of atrial fibrillation who recently had an opportunity to hernia with small bowel obstruction requiring laparotomy with small bowel resection and was discharged home now presents with wound dehiscence and discharge of purulent pus from the wound site. She had acute pain in the abdomen after which she noticed large amount of pus extruding from the wound site that ultimately relieved the pain. On evaluation this morning she appears comfortable with minimal pain at the wound site. Allergies/Medications Allergies: Coded Allergies: heparin (Intermediate, LEAKED INTO TISSUE AND CAUSED EXTREME PAIN 08/03/16) Per antibiotic order sheet. -- Ruben 12/03/12 clarithromycin (UNKNOWN PER PT DAUGHTER BELIEVES IT WAS EMYCIN - GI UPSET ) erythromycin base (GI UPSET 08/03/16) gabapentin (DIZZY GI UPSET 08/03/16) tramadol (DIZZY, GI UPSET 08/03/16) Home Med List: Acetaminophen (Pharbetol) 325 MG TABLET 1-2 TAB PO PRN PAIN (Reported) Acetaminophen With Codeine (Acetaminophen-Cod #3 Tablet) 300 MG-30 MG TABLET 0.5-1 TAB PO BID PRN PAIN (Reported) Apixaban (Eliquis) 2.5 MG TABLET 1 TAB PO BID BLOOD THINNER (Reported) Calcium Carb/Vitamin D3/Vit K1 (Calcium + D Soft Chewable Tab) (Unknown Strength ) TAB.CHEW (Unknown Dose) PO DAILY SUPPLEMENT (Reported) Carvedilol 25 MG TABLET 1 TAB PO BID HEART Furosemide (Lasix) 20 MG TABLET 1 TAB PO Q48 HEART Levothyroxine Sodium (Synthroid) 50 MCG TABLET 1 TAB PO DAILY AC HYPOTHYROIDISM Lisinopril 2.5 MG TABLET 1 TAB PO DAILY BP (Reported) Magnesium Oxide (Magnesium) 400 MG CAPSULE 1 CAP PO DAILY SUPPLEMENT ( Reported) Rosuvastatin Calcium (Crestor) 20 MG TABLET 1 TAB PO QPM CHOLESTEROL ( Reported) Simethicone (Gas Relief) (Unknown Strength) TAB.CHEW (Unknown Dose) PO PRN GAS (Reported) Current Medications: Current Medications Sig/Amber Start time Last Medication Dose Route Stop Time Status Admin Acetaminophen 650 MG Q6PRN PRN 08/03 224 AC PO Ampicillin Sodium/ 1,500 MG Q6 08/04 1200 AC 08/04 Sulbactam Sodium IV 1202 Sodium Chloride 100 ML Apixaban 2.5 MG BID 08/04 1000 AC 08/04 PO 0910 Atorvastatin Calcium 80 MG 1700 08/04 1700 AC PO Carvedilol 25 MG BID 08/04 1000 AC 08/04 PO 0911 Ceftriaxone Sodium 1,000 MG 2200 08/04 2200 CAN IV Ceftriaxone Sodium 0 .STK-MED ONE 08/03 2028 DC .ROUTE Ceftriaxone Sodium 1,000 MG ONCE ONE 08/03 1944 DC 08/03 IV 08/03 Docusate Sodium 100 MG DAILY NEEDED PRN 08/03 2244 AC PO Furosemide 20 MG Q48 08/05 1000 AC PO Levothyroxine Sodium 0.05 MG DAILY AC 08/04 0700 AC 08/04 PO 0617 Lisinopril 2.5 MG DAILY 08/04 1000 AC 08/04 PO 0911 Magnesium Oxide 400 MG DAILY 08/04 1000 AC 08/04 PO 1202 Metronidazole 500 MG Q8H 08/04 0500 DC 08/04 N/A 1 UNIT IV 0617 Metronidazole 500 MG ONCE ONE 08/03 1944 DC 08/03 N/A 1 UNIT IV 08/03 Morphine Sulfate 0 .STK-MED ONE 08/03 2028 DC .ROUTE Morphine Sulfate 2 MG ONCE ONE 08/03 2000 DC 08/03 IV 08/03 Ondansetron HCl 4 MG Q8P PRN 08/03 224 AC IV Oxycodone/ 2 TAB Q4P PRN 08/03 2300 AC Acetaminophen PO Oxycodone/ 1 TAB Q4P PRN 08/03 2244 AC Acetaminophen PO Sodium Chloride 1,000 ML BOLUS ONE 08/03 1944 DC 08/03 IV 08/03 Review of Systems Review of Systems Constitutional: Denies: no symptoms, see HPI, chills, diaphoresis, fever, malaise, weakness, unexplained weight loss. Cardiovascular: Denies: no symptoms, see HPI, chest pain, edema, orthopena, palpitations, peripheral edema, syncope. Respiratory: Denies: no symptoms, see HPI, cough, hemoptysis, orthopnea, short of breath, sputum production, stridor, wheezing. GI: Reports: abdominal pain. Musculoskeletal: Denies: no symptoms, see HPI, back pain, gout, joint pain, joint swelling, muscle pain, muscle stiffness, neck pain. Skin: Denies: no symptoms, see HPI, cysts, change in skin color, change in hair/nails, dryness, erythema, jaundice, lesions, lymphangitis, lumps, moles, rash. Past History Travel History Traveled to [place] past 21 day No Medical History Blood Transfusion Hx: Yes Neurological: NONE EENT: NONE Cardiovascular: AFIB, hypertension, RCW PACEMAKER Respiratory: NONE Gastrointestinal: GERD Hepatic: NONE Renal: NONE Musculoskeletal: NONE Psychiatric: NONE Endocrine: hypothyroidism Blood Disorders: NONE Cancer(s): NONE Surgical History Surgical History: left hip surgery Psychosocial History Where Do You Live? Home Who Do You Live With? child Services at Home: None Primary Language: Faroese Smoking Status: Former Smoker ETOH Use: denies use Illicit Drug Use: denies illicit drug use Functional Ability ADLs Independent: dressing, eating, toileting, bathing. Ambulation: cane IADLs Independent: shopping, housework, finances, food prep, telephone, transportation , medication admin. Exam & Diagnostic Data Last 24 Hrs of Vital Signs/I&O Vital Signs Date Time Temp Pulse Resp B/P Pulse O2 O2 Flow FiO2 Ox Delivery Rate 08/04 0911 84 122/80 08/04 0911 84 122/80 08/04 0635 98.5 67 18 118/60 94 Room Air 08/04 0047 97.8 91 18 126/68 95 Room Air 08/03 2358 96.1 93 18 117/67 95 Room Air 08/03 2140 96.5 94 18 126/77 93 Room Air 08/03 1917 96.1 120 20 123/64 95 Room Air Intake & Output 08/04 1600 08/04 0800 08/04 0000 Intake Total 1360 Output Total Balance 1360 Intake, IV 1120 Intake, Oral 240 Number 0 Bowel Movements Patient 50.349 kg 50.349 kg Weight Physical Exam General Appearance: alert, awake Respiratory: normal breath sounds, chest non-tender Cardiovascular: regular rate/rhythm Gastrointestinal: normal bowel sounds, soft, non-tender, abdominal wound covered by surgical dressing Extremities: normal inspection, no edema Skin: abdominal wound cellulitis Last 24 Hrs of Labs/Pavan: Laboratory Tests 08/04/16 0725: Anion Gap 5, Estimated GFR > 60, BUN/Creatinine Ratio 12.9, CBC w Diff NO MAN DIFF REQ, RBC 3.68 L, MCV 88.8, MCH 30.1, RDW 14.1, MPV 8.1, Gran % 79.9 H, Lymphocytes % 13.6 L, Monocytes % 5.5, Eosinophils % 0.7, Basophils % 0.3, Absolute Granulocytes 7.5 H, Absolute Lymphocytes 1.3, Absolute Monocytes 0.5, Absolute Eosinophils 0.1, Absolute Basophils 0, PUBS MCHC 33.9 08/03/162241: Lactic Acid Cancelled 08/03/16 2007: Anion Gap 6, Estimated GFR > 60, BUN/Creatinine Ratio 15.0, Glucose 98, Lactic Acid 1.1, Calcium 8.5, Total Bilirubin 0.5, AST 16, ALT 23, Alkaline Phosphatase 95, Troponin I < 0.01, Total Protein 5.4 L, Albumin 2.6 L, Globulin 2.8, Albumin/Globulin Ratio 0.9 L, PT 15.4 H, INR 1.47 H, APTT 37, CBC w Diff NO MAN DIFF REQ, RBC 3.86 L, MCV 88.9, MCH 29.5, RDW 13.9, MPV 7.9, Gran % 85.4 H , Lymphocytes % 9.2 L, Monocytes % 4.8, Eosinophils % 0.4, Basophils % 0.2, Absolute Granulocytes 11.5 H, Absolute Lymphocytes 1.2, Absolute Monocytes 0.7 H, Absolute Eosinophils 0.1, Absolute Basophils 0, PUBS MCHC 33.1 08/03/161941: Lactic Acid Cancelled Assessment/Plan Assessment/Plan 86-year-old female with history of atrial fibrillation who recently had an opportunity to hernia with small bowel obstruction requiring laparotomy with small bowel resection and was discharged home now presents with wound dehiscence and discharge of purulent pus from the wound site. She had acute pain in the abdomen after which she noticed large amount of pus extruding from the wound site that ultimately relieved the pain. On evaluation this morning she appears comfortable with minimal pain at the wound site. She has superficial abdominal cellulitis and wound infection. At this time she is on Unasyn. Culture taken from the wound site showing mixed growth and blood cultures so far has remained negative. Plan Agree with IV Unasyn Wound management as per surgery Use minimal pain meds Continue other home medication including Lasix Hyperkalemia, repeat potassium levels in a.m. DVT prophylaxis Problem List: 1. Postoperative wound infection Copies To: LUCIANO DONIS,ANN Patel; EVERETT DONIS,JAS Navarro Consult Acknowledgment - Thank you for your consult request.
[2016-08-04 15:20] VITALS: BP 132/88
--- NOTE | 2016-08-04 20:45 | Event Note ---
Event Note Event Note: Arrived for patient's dressing change this evening. She was premedicated with Percocet. There is still some minor erythema at the inferior aspect of the midline incision, but continues to improve. There is a moderate amount of drainage on the dressing. Dickens were removed, as advised by Dr. Barba. The open aspect of the wound was cleansed with sterile saline. Iodoform packing was replaced. Patient experienced some discomfort during removal of the erika, but tolerated the re-packing well. Continue twice a day packing and dressing changes. Dr. Barba was updated.
[2016-08-04 22:16] VITALS: BP 128/70
[2016-08-05 06:21] VITALS: BP 116/68
--- NOTE | 2016-08-05 08:17 | PN- General Surgery ---
See Addendum Subjective Subjective: Awake, alert No complaints overnight Tolerating diet, +bm - normal, formed this morning Abdominal wound tenderness mostly resolved Objective Vital Signs and I&Os Vital Signs Date Time Temp Pulse Resp B/P Pulse O2 O2 Flow FiO2 Ox Delivery Rate 08/05 0621 97.8 75 20 116/68 96 Room Air 08/04 2216 97.8 70 20 128/70 95 Room Air 08/04 2215 97.8 70 20 128/70 08/04 1520 96.6 66 20 132/88 92 08/04 0911 84 122/80 08/04 0911 84 122/80 Intake & Output 08/05 1600 08/05 0800 08/05 0000 08/04 1600 08/04 0800 08/04 0000 Intake Total 222 793 3127 Output Total Balance 920 679 1258 Intake, IV 200 1120 Intake, Oral 480 500 240 Number 0 Bowel Movements Patient 111 lb 111 lb Weight Physical Exam: VSS, afebrile General: alert and oriented times three Chest: clear anteriorly bilaterally, RRR Abd: soft, good bs, nondistended, nontender Wound: small <1cm opening with mild surrounding erythema, dressing with purulent drainage Packing changed - saturated with purulent drainage. Current Medications: Current Medications Sig/Amber Start time Last Medication Dose Route Stop Time Status Admin Acetaminophen 650 MG Q6PRN PRN 08/03 2245 AC PO Ampicillin Sodium/ 1,500 MG Q6 08/04 1200 AC 08/05 Sulbactam Sodium IV 0503 Sodium Chloride 100 ML Apixaban 2.5 MG BID 08/04 1000 AC 08/04 PO 2215 Atorvastatin Calcium 80 MG 1700 08/04 1700 AC 08/04 PO 1644 Carvedilol 25 MG BID 08/04 1000 AC 08/04 PO 2215 Ceftriaxone Sodium 1,000 MG 2200 08/04 2200 CAN IV Docusate Sodium 100 MG DAILY NEEDED PRN 08/03 2245 AC PO Furosemide 20 MG Q48 08/05 1000 AC PO Levothyroxine Sodium 0.05 MG DAILY AC 08/04 0700 AC 08/05 PO 0503 Lisinopril 2.5 MG DAILY 08/04 1000 AC 08/04 PO 0911 Magnesium Oxide 400 MG DAILY 08/04 1000 AC 08/04 PO 1202 Metronidazole 500 MG Q8H 08/04 0500 DC 02/26 N/A 1 UNIT IV 0617 Ondansetron HCl 4 MG Q8P PRN 08/03 2245 AC IV Oxycodone/ 2 TAB Q4P PRN 08/03 2300 AC Acetaminophen PO Oxycodone/ 1 TAB Q4P PRN 08/03 2245 AC 08/05 Acetaminophen PO 0503 Assessment/Plan Assessment/Plan 86 yo female s/p small bowel resection with post op wound infection follow up cultures - should return today Continue unasyn while awaiting sensitivities plan to dc - likely to rehab, once on oral antibiotics continue packing changes - bid at this time Core Measures/Miscellaneous Venous Thromboembolism VTE Risk Factors: Age > 40, Surgery VTE Contraindications: No Contraindications VTE Prophylaxis Ordered Inpt Mech & Pharm VTE Diagnosis: No VTE Type: NONE VTE Confirmed by (Test): NONE Beta Corrine Is Beta Corrine a Home Med? Yes If Yes, Was This Ordered Today? Yes Antibiotics Is Patient on Antibiotics? Yes If Yes: infection
--- NOTE | 2016-08-05 09:07 | PN- Medicine Consult ---
Assessment/Plan Assessment/Plan Assessment: On evaluation this morning she appears comfortable with minimal pain at the wound site. She has superficial abdominal cellulitis and minimal discharge. Culture taken from the wound site showing mixed growth and blood cultures so far has remained negative. Can switch her to oral antibiotics and discharge. Plan: Plan Consider switching to oral antibiotics Use minimal pain meds Continue other home medication including Lasix Hyperkalemia, repeat potassium levels DVT prophylaxis Problem List: 1. Postoperative wound infection Subjective Subjective: Patient has no complaints and pain is minimal Review of Systems Constitutional: Denies: no symptoms, see HPI, chills, diaphoresis, fever, malaise, weakness, unexplained weight loss. Cardiovascular: Denies: no symptoms, see HPI, chest pain, edema, orthopena, palpitations, peripheral edema, syncope. Respiratory: Denies: no symptoms, see HPI, cough, hemoptysis, orthopnea, short of breath, sputum production, stridor, wheezing. Gastrointestinal: Denies: no symptoms, see HPI, abdominal pain, bloating, constipation, diarrhea, distention, bowel incontinence, melena, nausea, bloody stool, changes in stool, vomiting, steatorrhea. Musculoskeletal: Denies: no symptoms, see HPI, back pain, gout, joint pain, joint swelling, muscle pain, muscle stiffness, neck pain. Objective Last 24 Hrs of Vital Signs/I&O Vital Signs Date Time Temp Pulse Resp B/P Pulse O2 O2 Flow FiO2 Ox Delivery Rate 08/05 0621 97.8 75 20 116/68 96 Room Air 08/04 2216 97.8 70 20 128/70 95 Room Air 08/04 2215 97.8 70 20 128/70 08/04 1520 96.6 66 20 132/88 92 08/04 0911 84 122/80 08/04 0911 84 122/80 Intake & Output 08/05 1600 08/05 0800 08/05 0000 Intake Total 230 680 Output Total Balance 230 680 Intake, IV 130 200 Intake, Oral 100 480 Number 1 Bowel Movements Physical Exam General Appearance: no apparent distress Cardiovascular: regular rate/rhythm Respiratory: normal breath sounds, no respiratory distress Abdomen: soft, non-tender Skin: abdominal wound with minimal discharge Current Medications: Current Medications Sig/Amber Start time Last Medication Dose Route Stop Time Status Admin Acetaminophen 650 MG Q6PRN PRN 08/03 2245 AC PO Ampicillin Sodium/ 1,500 MG Q6 08/04 1200 AC 08/05 Sulbactam Sodium IV 0503 Sodium Chloride 100 ML Apixaban 2.5 MG BID 08/04 1000 AC 08/04 PO 2215 Atorvastatin Calcium 80 MG 1700 08/04 1700 AC 08/04 PO 1644 Carvedilol 25 MG BID 08/04 1000 AC 08/04 PO 2215 Ceftriaxone Sodium 1,000 MG 2200 08/04 2200 CAN IV Docusate Sodium 100 MG DAILY NEEDED PRN 08/03 2245 AC PO Furosemide 20 MG Q48 08/05 1000 AC PO Levothyroxine Sodium 0.05 MG DAILY AC 08/04 0700 AC 08/05 PO 0503 Lisinopril 2.5 MG DAILY 08/04 1000 AC 08/04 PO 0911 Magnesium Oxide 400 MG DAILY 08/04 1000 AC 08/04 PO 1202 Metronidazole 500 MG Q8H 08/04 0500 DC 08/04 N/A 1 UNIT IV 0617 Ondansetron HCl 4 MG Q8P PRN 08/03 2245 AC IV Oxycodone/ 2 TAB Q4P PRN 08/03 2300 AC Acetaminophen PO Oxycodone/ 1 TAB Q4P PRN 08/03 2245 AC 08/05 Acetaminophen PO 0503 Results Last 24 Hrs Lab/Pavan Results: none
[2016-08-05 14:57] VITALS: BP 122/66
[2016-08-05 21:57] VITALS: BP 112/64; BP 118/50
--- NOTE | 2016-08-06 07:20 | PN- Student ---
See Addendum ARRON REED 08/06/16 0700: Subjective Subjective: Patient denies any events overnight. She states she has no pain and is looking forward to being discharged. She was not wearing her ALPs and stated she took them off last night so that if she needed to use the bathroom quickly she could. She denies any chest pain, shortness of breath, subjective fever/chills, nausea, vomiting or diarrhea. Objective Objective: Vitals: BP: 112/64 Pulse: 67 Resp: 20 Temp: 98.0F SpO2: 97% RA Physical Exam: General: Pt resting comfortably, well appearing in no acute distress. Alert and oriented to person place time and event. Head: Normocephalic, atraumatic. Eyes: PERRL, EOMI. Mouth: [place], moist mucous membranes. Cardiac: Irregular. Normal S1 and S2, no murmurs, rubs or gallops. Pulmonary: Clear to auscultation bilaterally. No rhonchi, wheezes, or rales. Abdomen: Non-distended, non-tender to palpation. Incision site is mildly erythematous with purulent discharge present on packing and dressing. [place] absent. Packing and dressing changes to be done BID. Extremities: Bilateral lower extremities have no edema, calf tenderness, and good 2+ dorsalis pedis pulses. Results Results: Laboratory Tests 08/04/16 0725: Anion Gap 5, Estimated GFR > 60, BUN/Creatinine Ratio 12.9, CBC w Diff NO MAN DIFF REQ, RBC 3.68 L, MCV 88.8, MCH 30.1, RDW 14.1, MPV 8.1, Gran % 79.9 H, Lymphocytes % 13.6 L, Monocytes % 5.5, Eosinophils % 0.7, Basophils % 0.3, Absolute Granulocytes 7.5 H, Absolute Lymphocytes 1.3, Absolute Monocytes 0.5, Absolute Eosinophils 0.1, Absolute Basophils 0, PUBS MCHC 33.9 08/03/16 2242: Lactic Acid Cancelled 08/03/162006: Anion Gap 6, Estimated GFR > 60, BUN/Creatinine Ratio 15.0, Glucose 98, Lactic Acid 1.1, Calcium 8.5, Total Bilirubin 0.5, AST 16, ALT 23, Alkaline Phosphatase 95, Troponin I < 0.01, Total Protein 5.4 L, Albumin 2.6 L, Globulin 2.8, Albumin/Globulin Ratio 0.9 L, PT 15.4 H, INR 1.47 H, APTT 37, CBC w Diff NO MAN DIFF REQ, RBC 3.86 L, MCV 88.9, MCH 29.5, RDW 13.9, MPV 7.9, Gran % 85.4 H , Lymphocytes % 9.2 L, Monocytes % 4.8, Eosinophils % 0.4, Basophils % 0.2, Absolute Granulocytes 11.5 H, Absolute Lymphocytes 1.2, Absolute Monocytes 0.7 H, Absolute Eosinophils 0.1, Absolute Basophils 0, PUBS MCHC 33.1 08/03/161941: Lactic Acid Cancelled Microbiology 08/03 2208 TRUNK: Culture & Sensitivity - RES KLEBSIELLA PNEUMONIAE GRAM POSITIVE COCCI 08/03 2208 TRUNK: Gram Stain - RES 08/03 2024 BLOOD: Blood Culture - RES 08/03 2006 BLOOD: Blood Culture - RES Assessment/Plan Assessment: Pt is an 86 year old female with a history of afib, htn, chf and a recent repair of an incarcerated obturator hernia and partial small bowel resection without a complicated hospital course. Pt returns POD#10 for abdominal pain and purluent fluid draining from incision site. Plan: -Wound cultures positive for K. pneumoniae and gram positive cocci. -Continue course of Unasyn as culture is susceptible. -Continue regular diet. -Continue dressing changes BID. -Continue ALPs, out of bed ambulation, and eliquis as DVT prophylaxis. -Will discharge to rehab when arrangements are finalized by Case management. Will discuss above with PA surgical team. Arron KISER-S2 MISHEL HARRIS 08/06/16 0726: Assessment/Plan Plan: AGREE WITH ABOVE PA-S NOTE DRESSING AND PACKING CHANGED LIKELY D/C TO STR TODAY PENDING BED AVAILABILITY WILL D/W
[2016-08-06] MEDS ORDERED: DOCUSATE SODIU100 M3 PO (07:30)
[2016-08-06] MEDS ORDERED: TYLENOL325 M1 PO (07:30)
[2016-08-06] MEDS ORDERED: PERCOCET 5-3251 EACH PO (07:31)
[2016-08-06] MEDS ORDERED: AUGMENTIN 875-1 EACH PO (07:32)
[2016-08-06 07:33] VITALS: BP 112/60
--- NOTE | 2016-08-06 07:39 | Patient Discharge Instructions ---
Discharge Instructions General Discharge Information You were seen/treated for: Surgery Date: 07/24/16 Name of Procedure: laparoscopic left obturator hernia repair with mesh, open small bowel resection Pre-Operative Diagnosis: Incarcerated left obturator hernia, SBO Re-admitted 08/03 for wound infection, +klebsiella You had these procedures: Surgery Date: 07/24/16 Name of Procedure: laparoscopic left obturator hernia repair with mesh, open small bowel resection Other wound care: twice daily packing changes, 1/4 inch guaze into midline incision opening Diet Continue normal diet: Yes Recommended Diet: Regular Activity Full Activity/No Limits: Yes Activity Self Limited: Yes Pounds, do NOT lift more than: 10 Other activity limits: no heavy lifting. no strenous activity Acute Coronary Syndrome Inclusion Criteria At DC or during hospital stay patient has or had the following: ACS DIAGNOSIS No Discharge Core Measures Meds if any: Prescribed or Continued at Discharge Meds if any: NOT Prescribed or Continued at Discharge Congestive Heart Failure Inclusion Criteria At DC or during hospital stay patient has or had the following: CHF DIAGNOSIS No Discharge Core Measures Meds if any: Prescribed or Continued at Discharge Meds if any: NOT Prescribed or Continued at Discharge Cerebrovascular accident Inclusion Criteria At DC or during hospital stay patient has or had the following: CVA/TIA Diagnosis No Discharge Core Measures Meds if any: Prescribed or Continued at Discharge Meds if any: NOT Prescribed or Continued at Discharge Venous thromboembolism Inclusion Criteria VTE Diagnosis No VTE Type NONE VTE Confirmed by (Test) NONE Discharge Core Measures - Per Current guidelines, there needs to be overlap - treatment for the first 5 days of Warfarin therapy. - If discharged on Warfarin prior to 5 days of - overlap therapy, the patient will need to be - assessed for post discharge needs including - *Post discharge parental anticoagulation - *Warfarin and/or parental anticoagulation education - *Follow up date to check INR post discharge At least 5 days overlap therapy as Inpatient No Meds if any: Prescribed or Continued at Discharge Note: Overlap Therapy is Warfarin and Anticoagulant Meds if any: NOT Prescribed or Continued at Discharge
--- NOTE | 2016-08-06 07:45 | Surgical Discharge Summary ---
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 Home Who Do You Live With? Patient/Self Services at Home: None What is Your Primary Language? Kyrgyz ETOH Use: denies use Review of Systems: see h&p Hospital Course Course Attending Physician: LUCIANO DONIS,ANN Patel Primary Care Physician: TREVER JOHNSON MD Hospital Course: Re-admitted 08/03/16 for wound infection after being discharged s/p laparoscopic left obturator hernia repair with mesh, and open small bowel resection for incarcerated hernia and bowel obstruction. Wound cultures are growing klebsiella , which is sensitive to unasyn, which she has been getting since she was re- admitted on 08/03/16. Twice daily packing changes are currently being done to a small opening along her midline incision, with 1/4 inch guaze packing. She has been seen by PT, who is currently recommending short term rehab. Upon discharge, she will be recommended to continue another 7 days of augmentin. She should also have her packing changes done twice daily until further evaluated at her follow up visit with or in a week. Complications: None Allergies: Coded Allergies: heparin (Intermediate, LEAKED INTO TISSUE AND CAUSED EXTREME PAIN 08/03/16) Per antibiotic order sheet. -- Ruben 12/03/12 clarithromycin (UNKNOWN PER PT DAUGHTER BELIEVES IT WAS EMYCIN - GI UPSET ) erythromycin base (GI UPSET 08/03/16) gabapentin (DIZZY GI UPSET 08/03/16) tramadol (DIZZY, GI UPSET 08/03/16) Disposition Summary Disposition Principal Diagnosis: wound infection, +klebsiella Additional Diagnosis: s/p laparoscopic left obturator hernia repair with mesh, open small bowel resection (07/24/16) for: Incarcerated left obturator hernia, SBOtor hernia, SBO Discharge Disposition: SNF Discharge Instructions General Discharge Information Code Status: Full Code Patient's Diet: regular, as tolerated Patient's Activity: no heavy lifting. no strenuous activity Follow-Up Instructions/Appts: call to schedule follow up visit one week continue augmentin x 1 week continue twice daily packing changes Medications at Discharge Discharge Medications: Stop taking the following medications: Acetaminophen With Codeine (Acetaminophen-Cod #3 Tablet) 300 MG-30 MG TABLET ORAL TWICE DAILY as needed for PAIN Qty = 60 Acetaminophen (Pharbetol) 325 MG TABLET ORAL as needed for PAIN Simethicone (Gas Relief) (Unknown Strength) TAB.CHEW ORAL as needed for GAS Continue taking these medications: Rosuvastatin Calcium (Crestor) 20 MG TABLET 1 Tablet ORAL Every night Qty = 90 Comments: NOT GIVEN IN HOSPITAL Apixaban (Eliquis) 2.5 MG TABLET 1 Tablet ORAL TWICE DAILY Qty = 60 Comments: Last Taken: 07/30/16 Time: 9:30 AM Lisinopril (Lisinopril) 2.5 MG TABLET 1 Tablet ORAL DAILY Qty = 90 Comments: Last Taken: 07/30/16 Time: 9:30 AM Magnesium Oxide (Magnesium) 400 MG CAPSULE 1 Capsule ORAL DAILY Comments: Last Taken: 07/30/16 Time: 9:30 AM Calcium Carb/Vitamin D3/Vit K1 (Calcium + D Soft Chewable Tab) 500 MG CALCIUM-1, 000 UNIT-40 MCG TAB.CHEW 1 Tablet ORAL DAILY Comments: NOT GIVEN IN HOSPITAL Levothyroxine Sodium (Synthroid) 50 MCG TABLET 1 Tablet ORAL DAILY BEFORE BREAKFAST Days = 60 Carvedilol (Carvedilol) 25 MG TABLET 1 Tablet ORAL TWICE DAILY Qty = 90 Comments: PER PT DAUGHTER Furosemide (Lasix) 20 MG TABLET 1 Tablet ORAL EVERY 48 HOURS (Every 2 days) Qty = 30 Start taking the following new medications: Acetaminophen (Tylenol) 325 MG TABLET 650 Milligram ORAL EVERY 6 HOURS NEEDED as needed for PAIN 1-3 TEMP GREATER THAN 101 Days = 10 No Refills Docusate Sodium (Docusate Sodium) 100 MG CAPSULE 100 Milligram ORAL DAILY NEEDED as needed for STOOL SOFTENER Days = 10 No Refills Oxycodone HCl/Acetaminophen (Percocet 5-325 MG Tablet) 5 MG-325 MG TABLET 1-2 Tablet ORAL EVERY 4-6 HOURS NEEDED as needed for PAIN CONTROL Qty = 30 No Refills Instructions: ALTERNATIVELY TO TYLENOL. DO NOT COMBINE PERCOCET AND TYLENOL. Amoxicillin/Potassium Clav (Augmentin 875-125 Tablet) 875 MG-125 MG TABLET 1 Tablet ORAL TWICE DAILY Qty = 14 No Refills Instructions: TAKE WITH FOOD
--- NOTE | 2016-08-06 09:05 | PN- Medicine Consult ---
Assessment/Plan Assessment/Plan Assessment: On evaluation this morning she appears comfortable with minimal pain at the wound site. She has superficial abdominal cellulitis and minimal discharge. Culture taken from the wound site showing klebsiella and gram-positive cocci. Plan: Plan Follow identification for gram-positive cocci Use minimal pain meds Continue other home medication including Lasix Hyperkalemia, repeat potassium levels DVT prophylaxis Problem List: 1. Postoperative wound infection Subjective Subjective: patient reports improved discomfort at abdominal wound site Review of Systems Constitutional: Denies: no symptoms, see HPI, chills, diaphoresis, fever, malaise, weakness, unexplained weight loss. Cardiovascular: Denies: no symptoms, see HPI, chest pain, edema, orthopena, palpitations, peripheral edema, syncope. Respiratory: Denies: no symptoms, see HPI, cough, hemoptysis, orthopnea, short of breath, sputum production, stridor, wheezing. Gastrointestinal: Denies: no symptoms, see HPI, abdominal pain, bloating, constipation, diarrhea, distention, bowel incontinence, melena, nausea, bloody stool, changes in stool, vomiting, steatorrhea. Skin: Denies: no symptoms, see HPI, cysts, change in skin color, change in hair/nails, dryness, erythema, jaundice, lesions, lymphangitis, lumps, moles, rash. Objective Last 24 Hrs of Vital Signs/I&O Vital Signs Date Time Temp Pulse Resp B/P Pulse O2 O2 Flow FiO2 Ox Delivery Rate 08/06 0733 97.9 69 20 112/60 97 Room Air 08/05 2206 67 112/64 08/05 2157 98.0 67 20 112/64 97 Room Air 08/05 1457 98.2 79 20 122/66 96 08/05 1240 Room Air 08/05 0920 80 120/78 08/05 0918 80 120/72 Intake & Output 08/06 1600 08/06 0800 08/06 0000 Intake Total 400 300 Output Total Balance 400 300 Intake, IV 100 Intake, Oral 300 300 Physical Exam General Appearance: alert, awake, anxious Cardiovascular: regular rate/rhythm Respiratory: normal breath sounds, chest non-tender Abdomen: soft, non-tender Skin: anterior abdominal wound Current Medications: Current Medications Sig/Amber Start time Last Medication Dose Route Stop Time Status Admin Acetaminophen 650 MG Q6PRN PRN 08/03 2245 AC PO Ampicillin Sodium/ 1,500 MG Q6 08/04 1200 AC 08/06 Sulbactam Sodium IV 0512 Sodium Chloride 100 ML Apixaban 2.5 MG BID 08/04 1000 AC 08/05 PO 2204 Atorvastatin Calcium 80 MG 1700 08/04 1700 AC 08/05 PO 1744 Carvedilol 25 MG BID 08/04 1000 AC 08/05 PO 2206 Docusate Sodium 100 MG DAILY NEEDED PRN 08/03 2245 AC PO Furosemide 20 MG Q48 08/05 1000 AC 08/05 PO 0918 Levothyroxine Sodium 0.05 MG DAILY AC 08/04 0700 AC 08/06 PO 0511 Lisinopril 2.5 MG DAILY 08/04 1000 AC 08/05 PO 0918 Magnesium Oxide 400 MG DAILY 08/04 1000 AC 08/05 PO 1214 Ondansetron HCl 4 MG Q8P PRN 08/03 2245 AC IV Oxycodone/ 2 TAB Q4P PRN 08/03 2300 AC Acetaminophen PO Oxycodone/ 1 TAB Q4P PRN 08/03 2245 AC 08/06 Acetaminophen PO 0512 Patient Medication 1 ED .ST-MED ONE 08/05 1339 [place] Teaching ED 08/05 1340 Results Last 24 Hrs Lab/[place] Results: Laboratory Tests 08/06/16 0700: Sodium Pending, Potassium Pending, Chloride Pending, Carbon Dioxide Pending, Anion Gap Pending, BUN Pending, Creatinine Pending, BUN/Creatinine Ratio Pending , Phosphorus Pending, Magnesium Pending
[2016-08-06 14:03] VITALS: BP 132/74
== END 2016-08-06 17:41 | disposition home health service (06) | DRG 863 ==
LOC: ENRESERVTM → ENRESERVDT → ERH 18:53 → ENPENDDIS 23:30 → ERHI 23:30 → 2NA 23:30
PROVIDERS: Emergency Medicine; Physician Assistant Surgical; ADMIT Surgery
DX: T81.4XXA Infection following a procedure, initial encounter (principal); E87.5 Hyperkalemia; I48.91 Unspecified atrial fibrillation; L03.311 Cellulitis of abdominal wall; I10 Essential (primary) hypertension; Z95.0 Presence of cardiac pacemaker; K21.9 Gastro-esophageal reflux disease without esophagitis; E03.9 Hypothyroidism, unspecified
CPT/HCPCS: 2NASP; ERO; 36415; 74176; 82436; 87040; 87070; 87147; 93005; 93010; 96374; 96375; 97116-GO; 97161-GP; J0696